=== PATIENT | male | born 1950 | race Caucasian/White ===

== ENCOUNTER 2022-09-25 11:13 | Outpatient (CLI) | payer MEDICARE, BC, SELFPAY | END 2022-09-25 11:14 | disposition home or self-care (01) | PROVIDERS: PCP Internal Medicine; Visit Provider Internal Medicine | DX: Z00.00 Encounter for general adult medical examination without abnormal findings (principal); I10 Essential (primary) hypertension; Z13.6 Encounter for screening for cardiovascular disorders; Z30.09 Encounter for other general counseling and advice on contraception; Z12.5 Encounter for screening for malignant neoplasm of prostate | CPT/HCPCS: 80053; 80061; 84153 ==

== ENCOUNTER 2024-02-13 06:25 | Outpatient (CLI) | payer MEDICARE, BC, SELFPAY | END 2024-02-13 06:26 | disposition home or self-care (01) | LOC: AMB 02-15 09:52 | PROVIDERS: PCP Internal Medicine; Visit Provider Internal Medicine | DX: S89.92XA Unspecified injury of left lower leg, initial encounter (principal); W01.0XXA Fall on same level from slipping, tripping and stumbling without subsequent striking against object, initial encounter; Y92.009 Unspecified place in unspecified non-institutional (private) residence as the place of occurrence of the external cause | CPT/HCPCS: A0425; A0429 ==

== ENCOUNTER 2024-02-13 06:55 | Emergency (ER) | payer MEDICARE, BC, SELFPAY ==
[2024-02-13 07:00] VITALS: BP 165/88; PULSE 71; RESP 20; TEMP 36.7; O2SAT 97; BMI 25.4
--- NOTE | 2024-02-13 07:15 | ED.GENADULT ---
HPI - General Adult General Chief complaint: Laceration/Wound Stated complaint: Fall Time Seen by Provider: 02/13/24 07:14 History of Present Illness HPI narrative: Patient is a 73-year-old gentleman well known to me who stumbled getting out of bed this morning striking his left miranda on his walker. Patient has significant parkinsonism. He had significant bleeding from a skin tear over the anterior miranda on the distal lower extremity which has now stopped. His mother so did abrasions on the left arm anteriorly as well as left anterior miranda. No bony pain patient has no tenderness with range of motion and feels like he can move all of his joints. Patient's case is very complicated by irrigation to parkinsonism atrial fibrillation which is been stable. Related Data Home Medications ?Medication ?Instructions ?Recorded ?Confirmed carbidopa 25 mg-levodopa 100 mg 1 tab PO QID 03/15/22 12/17/23 tablet cholecalciferol (vitamin D3) 50 50 mcg PO DAILY 03/15/22 12/17/23 mcg (2,000 unit) tablet digoxin 125 mcg (0.125 mg) tablet 0.125 mg PO DAILY 03/15/22 12/17/23 entacapone 200 mg tablet 200 mg PO TID 03/15/22 12/17/23 finasteride 5 mg tablet 5 mg PO DAILY 03/15/22 12/17/23 melatonin 5 mg capsule 5 mg PO .Bedtime as needed PRN 03/15/22 12/17/23 polyethylene glycol 3350 17 g PO DAILY 03/15/22 12/17/23 gram/dose oral powder aspirin 81 mg tablet,delayed 81 mg PO QDAY 03/18/22 12/17/23 release diclofenac sodium 1 % topical gel 2-4 topical QID 03/18/22 12/17/23 folic acid-vit B6-vit B12 2.5 1 tab PO QDAY 03/18/22 12/17/23 mg-25 mg-2 mg tablet (Folbic) furosemide 20 mg tablet 20 mg PO QDAY 03/18/22 12/17/23 omeprazole 20 mg capsule,delayed 40 mg PO BID 03/18/22 12/17/23 release acetaminophen 500 mg tablet 1,000 mg PO Q6H PRN 10/29/23 12/17/23 (Tylenol Extra Strength) valsartan 160 mg tablet 80 mg PO DAILY 12/10/23 12/17/23 Previous Rx's ?Medication ?Instructions ?Recorded amoxicillin 500 mg capsule 2,000 mg (4 x 500 mg) PO ONCE 04/16/23 Dental Procedure #7 caps gabapentin 300 mg capsule 600 mg (2 x 300 mg) PO TID #540 10/25/23 caps Adult Wheelchair #1 ea 10/29/23 Adult Wheelchair #1 ea 10/29/23 nystatin 100,000 unit/gram topical 1 applic topical BID #30 grams 10/31/23 cream famotidine 40 mg tablet 20 mg (1/2 x 40 mg) PO DAILY #60 12/17/23 tabs nirmatrelvir 300 mg (150 mg See Rx Instructions PO .COMPLEX 01/16/24 x2)-ritonavir 100 mg tablet,dose #30 ea pack (Paxlovid) meloxicam 7.5 mg tablet 7.5 - 15 mg (1 - 2 x 7.5 mg) PO 01/22/24 DAILY for pain #90 tabs trazodone 50 mg tablet 25 mg (1/2 x 50 mg) PO QHS PRN 02/09/24 pain #90 tabs Allergies Allergy/AdvReac Type Severity Reaction Status Date / Time morphine Allergy Verified 02/13/24 07:04 tetanus immune globulin Allergy Verified 02/13/24 07:04 Review of Systems Status of ROS: Reports: 10 or more systems reviewed and unremarkable except as noted in History and below [facility] Medical History Dysarthria and anarthria ?R47.1 - Dysarthria and anarthria (ICD-10) Delirium due to known physiological condition ?F05 - Delirium due to known physiological condition (ICD-10) Urinary tract infection ?N39.0 - Urinary tract infection, site not specified (ICD-10) Polyosteoarthritis ?M15.9 - Polyosteoarthritis, unspecified (ICD-10) Benign prostatic hyperplasia with lower urinary tract symptoms ?N40.1 - Benign prostatic hyperplasia with lower urinary tract symptoms (ICD-10) History of falling ?Z91.81 - History of falling (ICD-10) Recurrent dislocation, right shoulder ?M24.411 - Recurrent dislocation, right shoulder (ICD-10) Acute posthemorrhagic anemia ?D62 - Acute posthemorrhagic anemia (ICD-10) Ataxia ?R27.0 - Ataxia, unspecified (ICD-10) Rash ?R21 - Rash and other nonspecific skin eruption (ICD-10) Insomnia ?G47.00 - Insomnia, unspecified (ICD-10) Esophageal dysphagia ?R13.19 - Other dysphagia (ICD-10) Hypertension ?I10 - Essential (primary) hypertension (ICD-10) Parkinson's disease ?G20 - Parkinson's disease (ICD-10) Inguinal hernia ?K40.90 - Unilateral inguinal hernia, without obstruction or gangrene, not specified as recurrent (ICD-10) Atrial fibrillation ?I48.91 - Unspecified atrial fibrillation (ICD-10) Anterior shoulder dislocation ?S43.016A - Anterior dislocation of unspecified humerus, initial encounter (ICD-10) Pain ?R52 - Pain, unspecified (ICD-10) Surgical History History of shoulder surgery (11/06/23) ?Z98.890 - Other specified postprocedural states (ICD-10) S/P ORIF (open reduction internal fixation) fracture (09/14/23) ?Z98.890 - Other specified postprocedural states (ICD-10) ?Z87.81 - Personal history of (healed) traumatic fracture (ICD-10) History of reverse total replacement of right shoulder joint ?Z98.890 - Other specified postprocedural states (ICD-10) H/O hernia repair ?Z98.890 - Other specified postprocedural states (ICD-10) ?Z87.19 - Personal history of other diseases of the digestive system (ICD-10) Social History Narrative: -Erin What is your current living situation?: I presently have a place to live Problems where you live: no known problems In the past 12 months, utilities in danger of being shut off: no In past 12 months, lack of transportation kept you from medical appts, meetings, work, or getting things needed for daily living: no In the past 12 mos, have been you worried that your food would run out before you had money to buy more?: never true In the past 12 mos, the food you bought just didn't last and you didn't have money to buy more?: never true Smoking Status: Former smoker What tobacco products do you use: cigarettes Smoking quit date/years: >15 years ago and cigars Do you use any of these nicotine containing products: None Second hand tobacco smoke exposure: No How often do you have a drink containing alcohol: never AUDIT-C Alcohol total score: 0 Non-prescribed substance use: denies use How often does anyone, including family, friends and others, physically hurt you: never How often does anyone, including family, friends and others, insult or talk down to you: never How often does anyone, including family, friends and others, threaten you with harm: never How often does anyone, including family, friends and others, scream or curse at you: never Little interest or pleasure in doing things: several days Feeling down, depressed, or hopeless: several days Exam Narrative: Exam Narrative: EXAM GENERAL: Patient appears comfortable and well. EYES: No scleral icterus. ENT: Tympanic membranes and oropharynx normal. THYROID: no thyroid nodules or thyromegaly. LYMPH: No supraclavicular or cervical lymphadenopathy. SKIN: Abrasions and skin tears as noted above. EXT: No dependent lower extremity pedal edema. HEART: Regular rate and rhythm with no murmurs, rubs, or gallops. LUNGS: Clear to auscultation bilaterally with no crackles or wheezes. ABD: Soft, non tender, non distended. PSYCH: Good eye contact, speech is not pressured. Const: Vital Signs, click to edit/add: Vital Signs - 24 hr 02/13/24 07:00 Temperature 98.0 F Pulse Rate [Right Pulse Oximeter] 71 Respiratory Rate 20 Blood Pressure [Ri ght Upper Arm] 165/88 H Pulse Oximetry 97 Oxygen Delivery Me thod Room Air Course Course ED Course: Patient seen and examined. Vital Signs Vital signs: Initial Vital Signs Temperature 98.0 F 02/13/24 07:00 Temperature Source Temporal Artery Scan 02/13/24 07:00 Pulse Rate 71 02/13/24 07:00 Respiratory Rate 20 02/13/24 07:00 Blood Pressure 165/88 H 02/13/24 07:00 Blood Pressure Mean 113 H 02/13/24 07:00 Pulse Oximetry 97 02/13/24 07:00 Oxygen Delivery Method Room Air 02/13/24 07:00 Vital Signs Temperature 98.0 F 02/13/24 07:00 Pulse Rate 71 02/13/24 07:00 Respiratory Rate 20 02/13/24 07:00 Blood Pressure 165/88 H 02/13/24 07:00 Pulse Oximetry 97 02/13/24 07:00 Oxygen Delivery Method Room Air 02/13/24 07:00 Temperature 98.0 F 02/13/24 07:00 Pulse Rate 71 02/13/24 07:00 Respiratory Rate 20 02/13/24 07:00 Blood Pressure 165/88 H 02/13/24 07:00 Pulse Oximetry 97 02/13/24 07:00 Oxygen Delivery Method Room Air 02/13/24 07:00 Medical Decision Making MDM Narrative Medical decision making narrative: Patient is a 73-year-old gentleman who is actually my primary care patient who presents with skin tears after a fall. I did thoroughly evaluate him and I do not believe he has any fractures or sprains. The abrasions and skin tears are not really amenable to closure but we did clean the numb up really well and the provided sterile bandaging. We did explain wound care to his and they will be in follow-up with me on a p.r.n. basis. They do have my cell phone number to call me any time. Discharge Plan Discharge Clinical Impression: Skin tear Patient Disposition: Home, Self-Care Condition: Stable Additional Instructions: Triple antibiotic daily dressing changes Monitor for signs of infection Call Dr. Wolf on his cell phone if problems develop. Continue current medication. Activity Level: No Restrictions Discharge Diet: Regular Prescriptions: No Action acetaminophen [Tylenol Extra Strength] 500 mg tablet 1,000 mg PO Q6H PRN (DME) Adult Wheelchair Misc See Rx Instructions .Route Qty: 1 0RF Rx Instructions: Wheel chair with elevated leg rest right leg. (DME) Adult Wheelchair Misc See Rx Instructions .Route Qty: 1 0RF Rx Instructions: motorized wheelchair melatonin 5 mg capsule 5 mg PO .Bedtime as needed PRN cholecalciferol (vitamin D3) 50 mcg (2,000 unit) tablet 50 mcg PO DAILY finasteride 5 mg tablet 5 mg PO DAILY carbidopa-levodopa 25-100 mg tablet 1 tab PO QID Rx Instructions: 2.5 tablets 4 times daily polyethylene glycol 3350 17 gram/dose powder PO DAILY Rx Instructions: Every 24 hours digoxin 125 mcg (0.125 mg) tablet 0.125 mg PO DAILY entacapone 200 mg tablet 200 mg PO TID Rx Instructions: 1/2 tablet TID omeprazole 20 mg capsule,delayed release(DR/EC) 40 mg PO BID Patient Comments: TAKE 2 CAPSULES BY MOUTH TWO TIMES A DAY BEFORE BREAKFAST AND DINNER. diclofenac sodium 1 % gel 2-4 topical QID Folbic 2.5-25-2 mg tablet 1 tab PO QDAY furosemide 20 mg tablet 20 mg PO QDAY aspirin 81 mg tablet,delayed release (DR/EC) 81 mg PO QDAY valsartan 160 mg tablet 80 mg PO DAILY famotidine 40 mg tablet 20 mg PO DAILY Qty: 60 3RF amoxicillin 500 mg capsule 2,000 mg PO ONCE Qty: 7 0RF Rx Instructions: 1 HR PRIOR TO APPT gabapentin 300 mg capsule 600 mg PO TID Qty: 540 0RF nystatin 100,000 unit/gram cream 1 applic topical BID Qty: 30 2RF Paxlovid 300 mg (150 mg x 2)-100 mg tablets,dose pack See Rx Instructions PO .COMPLEX Qty: 30 0RF Rx Instructions: take TWO 150 mg tablets of nirmatrelvir with ONE 100 mg tablet of ritonavir twice daily for 5 days PO meloxicam 7.5 mg tablet 7.5 - 15 mg PO DAILY Qty: 90 3RF trazodone 50 mg tablet 25 mg PO QHS PRN (Reason: pain) Qty: 90 0RF Follow Up/Referrals: Bill Wolf MD [Primary Care Provider] - Stand Alone Forms: [facility] Info Instructions
== END 2024-02-13 09:06 | disposition home or self-care (01) ==
PROVIDERS: Emergency Provider Emergency Medicine; PCP Internal Medicine
DX: S81.812A Laceration without foreign body, left lower leg, initial encounter (principal); W06.XXXA Fall from bed, initial encounter
CPT/HCPCS: 12004; 99283

== ENCOUNTER 2024-11-17 10:47 | Outpatient (CLI) | payer MEDICARE, BC, SELFPAY ==
--- NOTE | 2024-11-17 10:45 | CRLHL7_ITS ---
For Patients: As a result of the Cures Act, medical imaging exams and procedure reports are released immediately into your electronic medical record. You may view this report before your referring provider. If you have questions, please contact your health care provider. DIGITAL DIAGNOSTIC BILATERAL BREAST MAMMOGRAM WITH COMPUTER-AIDED DETECTION AND TOMOSYNTHESIS, 11/17/2024 CLINICAL HISTORY: RIGHT breast lump. COMPARISON: None. TECHNIQUE: Digital BILATERAL mammogram in 4 projections with computer-aided detection. Tomosynthesis was used in this interpretation. BREAST COMPOSITION: There are scattered areas of fibroglandular density. FINDINGS: 3D CC/MLO BILATERAL mammogram images submitted. Subareolar fibroglandular tissue is noted on the right. No suspicious mass. No architectural distortion. No adenopathy. No suspicious calcifications. Unremarkable LEFT breast. IMPRESSION: Moderate RIGHT-sided gynecomastia. No evidence of malignancy. RECOMMENDATIONS: Clinical follow-up. A lay language report of this examination will be provided to the patient. BI-RADS Category 2: Benign Dictated by Jose Daniel Pace MD @ 11/18/2024 11:58:02 am ANTONIO/gustabo DW/Dictated by: Jose Daniel Pace MD @ 11/18/2024 11:58:00 AM (Electronically Signed)
== END 2024-11-17 10:48 | disposition home or self-care (01) ==
LOC: MAMMO 10:49
PROVIDERS: PCP Internal Medicine; Visit Provider Internal Medicine
DX: N63.10 Unspecified lump in the right breast, unspecified quadrant (principal); N62 Hypertrophy of breast; N64.0 Fissure and fistula of nipple
CPT/HCPCS: 77066; G0279

== ENCOUNTER 2024-12-19 16:57 | Inpatient (IN) | payer MEDICARE, BC, SELFPAY ==
--- OUTSIDE RECORDS SUMMARY | 2024-11-30 08:39 | XMS_ITS | Encounter Summary ---
Author Organization [facility] Address [address] [place] [address] Care Team Providers Care Linux Systems Analyst Name Role Phone Md, Not Listed Primary Care Provider Unavailabl e Encounter Details Date Type Department Care Team (Latest Contact Info) Description 11/30/2024 8:39 AM CDT - 11/30/2024 11:59 PM CDT Hospital Encounter Imaging Center [facility] [address], [address] [place], [place] [id number] Discharge Disposition: Returning Home/Self Care Social History [...] kidney documented in this encounter Care Teams Linux Systems Analyst Relationship Specialty Start Date End Date , Not Listed no address PCP - General Internal Medicine 11/15/20 documented as of this encounter
[2024-12-19] VITALS (12 sets, daily range): BP systolic 82–158; BP diastolic 55–88; PULSE 59–79; RESP 14–25; TEMP 36.8–37.3; O2SAT 91–97; BMI 25.5
--- OUTSIDE RECORDS SUMMARY | 2024-12-19 16:59 | XMS_ITS | Encounter Summary ---
Author Organization [facility] Address [address] [place] [id number] Care Team Providers Care Stripper And Opaquer Apprentice Name Role Phone Debbie Cazares MD Primary Care Provider Dillon Talbert MD Primary Care Provider [phone] No Ref-Primary, Physician Primary Care Provider Encounter Details Date Type Department Care Team (Late st Contact Info) Description 12/26/2016 [facility] [address] [place] [phone] Scooter Garza MD [facility] [address] [place] [id number] Pre-operative laboratory examination (Primary Dx) Social History Tobacco Use Types Packs/Day Years Used Date Smoking Tobacco: Some Days Cigars Smokeless Tobacco: Never Comments:QUIT cigarettes man y years ago Alcohol Use Standard Drinks/Week Comments Yes 0 (1 standard drink = 0.6 oz pur e alcohol) 4 x a week Sex and Gender Information Value Date Recorded Sex Assigned at Not on file 

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
--- OUTSIDE RECORDS SUMMARY | 2024-12-19 16:59 | XMS_ITS | Clinical Summary ---
Author Organization [facility] Address [address] [place] [id number] Care Team Providers Care Steam Conditioner Filling Name Role Phone No Ref-Primary, Physician Primary Care Provider Allergies Active Allergy Reactions Criticality Noted Date Comments Morphine Hcl Other (See Comments) 04/08/2013 Hiccups for 24 hours Tetanus Toxoid Nausea 04/08/2013 Headaches, fever and flu like symptoms Medications VITAMIN D, CHOLECALCIFEROL, PO Take 2,000 Units by mouth daily Active [place]-3 Fatty Acids (OMEGA-3 FISH OIL PO) Take 1 g by mouth daily Active carbidopa-levodopa (SINEMET CR) 50-200 MG per tablet Take 1 tablet by mouth 4 times daily 06:00, 10:00, 14:00, and 18:00 Active PRAMIPEXOLE DIHYDROCHLORIDE PO Take 0.5 mg by mouth 4 times daily (Takes with Carbidopa-Levodo pa CR) 06:00, 10:00, 14:00, and 18:00 Active Finasteride (PROSCAR PO) Take 5 mg by mouth daily Active vitamin E 400 UNIT capsule Take 400 Units by mouth daily Active CYCLOBENZAPRINE HCL PO Take 5 mg by mouth daily as needed Active Acetaminophen (TYLENOL PO) Take 500 mg by mouth 2 times daily as needed Active carbidopa-levodopa (PARCOPA) 25-100 MG per ODT tab Take 1 tablet by mouth daily as needed Active teriparatide, recombinant, (FORTEO) 600 MCG/2.4ML SOLN injection Inject 20 mcg Subcutaneous daily Active MELATONIN PO Take 5 mg by mouth At Bedtime Active carbidopa-levodopa (SINEMET CR) 50-200 MG per CR tablet Take 1 tablet by mouth nightly as needed Active glucosamine-chondro itinoitin 750-600 MG TABS Take 1 tablet by mouth daily Active PRAMIPEXOLE DIHYDROCHLORIDE PO Take 0.5 mg by mouth nightly as needed (takes with As needed dose of Carbidopa-Levodo pa CR) Active diphenhydrAMINE-araceli taminophen (TYLENOL PM) 25-500 MG tablet Take 1 tablet by mouth At Bedtime Active polyethylene glycol (MIRALAX/GLYCOLAX) powder Take 1 capful by mouth daily Active CHLORTHALIDONE PO Take 12.5 mg by mouth daily (0.5 x 25 mg tablet = 12.5 mg dose) Active calcium carbonate (TUMS) 500 MG chewable tablet Take 1 chew tab by mouth daily as needed for heartburn Active order for DMEIndications:Inst ability of prosthetic hip, initial encounter Equipment being ordered: Walker Wheels ([id number]) and Walker ([id number]) Treatment Diagnosis: Impaired gait 1 each 01/23/20 17 Active aspirin EC 325 MG EC tabletIndications:I nstability of prosthetic hip, initial encounter Take 1 tablet (325 mg) by mouth 2 times daily 100 tablet 01/24/20 17 Active GABAPENTIN PO Take 600 mg by mouth 3 times daily Active acetaminophen (TYLENOL) 325 MG tabletIndications:A rthritis, midfoot Take 2-3 tablets (650-975 mg) by mouth every 6 hours 50 tablet 08/01/19 18 Active ibuprofen (ADVIL/MOTRIN) 600 MG tabletIndications:A rthritis, midfoot Take 1 tablet (600 mg) by mouth every 6 hours 50 tablet 08/01/19 18 Active oxyCODONE IR (ROXICODONE) 5 MG tabletIndications:A rthritis, midfoot Take 1-2 tablets (5-10 mg) by mouth every 4 hours as needed for breakthrough pain 20 tablet 08/01/19 18 Active Active Problems Problem Noted Date Diagnosed Date Inadequate pain control 08/01/2017 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 Degenerative arthritis of hip 04/12/2013 Social History Tobacco Use Types Packs/Day Years Used Date Smoking Tobacco: Every Day Cigars Smokeless Tobacco: Never Alcohol Use Standard Drinks/Week Comments Yes 0 (1 standard drink = 0.6 oz pure alcohol) 1 drink a day on average, rarely have more then one Sex and Gender Information Value Date Recorded Sex Assigned at Not on file Legal Sex Male 4:05 AM MERCHANDISING LEAD Gender Identity Not on file Sexual Orientation Not on file Last Filed Vital Signs Vital Sign Reading Time Taken Comments Blood Pressure 105/62 08/01/2017 5:33 PM MERCHANDISING LEAD Pulse 68 08/01/2017 8:26 AM MERCHANDISING LEAD Temperature 36.4 C (97.6 F) 08/01/2017 5:33 PM MERCHANDISING LEAD Respiratory Rate 16 08/01/2017 5:33 PM MERCHANDISING LEAD Oxygen Saturation 94% 08/01/2017 5:33 PM MERCHANDISING LEAD Inhaled Oxygen Concentration - - Weight 82.1 kg (181 lb) 08/01/2017 8:26 AM MERCHANDISING LEAD Height 177.8 cm (5' 10) 08/01/2017 8:26 AM MERCHANDISING LEAD Body Mass Index 25.97 08/01/2017 8:26 AM MERCHANDISING LEAD Plan of Treatment Not on file Medical Devices Implanted Type Area Loan Adviser Device Identifier Shelf Expiration Date Model / Serial / Lot Graft Bone Crush Canc 15ml [id number] Implanted:Qty: 1 on 08/01/2017 by Sabas Mitchell MD at [facility] Bone/Tis carlene/Biol ogic Left: Foot MUSCULOSKELETAL DESIR 05/15/2020 [id number] / [id number] / Imp Femoral Neck Zim Mod Taper Kinectiv P [id number] Implanted:Qty: 1 on 01/21/2017 by Scooter Garza MD at [facility] Total Joint Componen t/Insert Left: Hip [employer] 11/06/202658-9588-951-0 0 / / [id number] Trilogy Acetabular System Shell With Holes Porous 58mm Od Implanted:Qty: 1 on 04/12/2013 by Scooter Garza MD at [facility] Left: Hip 12/06/2022 / / [id number] Imp Scr Zim 6.5x30mm Acet Cup Self Tap [id number] Implanted:Qty: 1 on 04/12/2013 by Scooter Garza MD at [facility] Left: Hip [employer] 06/08/202234-1912-523-3 0 / / [id number] Modular Femoral Stem Press Fit Plasma Sprayed Size 16.25 Implanted:Qty: 1 on 04/12/2013 by Scooter Garza MD at [facility] Left: Hip 12/06/2016 [id number] 0 / / [id number] Imp Trilogy Liner 40mm Implanted:Qty: 1 on 01/21/2017 by Scooter Garza MD at [facility] Left: Hip TAE 08/06/2017 [id number] / / [id number] Imp Femoral Head Implanted:Qty: 1 on 01/21/2017 by Scooter Garza MD at [facility] Left: Hip FATOU 06/08/2026 [id number] / / [id number] Gorilla Screw 20mm Non-Locking 3.5 Implanted:Qty: 1 on 08/01/2017 by Sabas Mitchell MD at [facility] Left: Foot PARAGON 28 [id number] 31 JUL 2017 8004 Gorilla Screw 24mm Non-Locking 3.5 Implanted:Qty: 1 on 08/01/2017 by Sabas Mitchell MD at [facility] Left: Foot PARAGON 28 [id number] 31 JUL 2017 8004 Gorilla Screw 30mm Non-Locking 3.5 Implanted:Qty: 1 on 08/01/2017 by Sabas Mitchell MD at [facility] Left: Foot PARAGON 28 [id number] 31 JUL 2017 8004 Gorilla Screw 26mm Non-Locking 3.5 Implanted:Qty: 2 on 08/01/2017 by Sabas Mitchell MD at [facility] Left: Foot PARAGON 28 [id number] 31 JUL 2017 8004 Gorilla Screw 26mm Compression Non-Locking 4.2 Implanted:Qty: 1 on 08/01/2017 by Sabas Mitchell MD at [facility] Left: Foot PARAGON 28 [id number] / / 31 JUL 2017 8004 GorillaPablody Bear Plate, Medum Implanted:Qty: 1 on 08/01/2017 by Sabas Mitchell MD at [facility] Left: Foot PARAGON 28 [id number] 2017 504 Explanted Type Area Loan Adviser Device Identifier Shelf Expiration Date Model / Serial / Lot Imp Liner Acetabulum Zim Xlpe [id number] Implanted:Qty: 1 on 04/12/2013 by Scooter Garza MD at [facility] Explanted:Qty: 1 on 01/21/2017 by Scooter Garza MD at [facility] Left: Hip [employer] 07/09/2014 [id number] 8- [id number] Imp Femoral Neck Zim Mod Taper Kinectiv P [id number] Implanted:Qty: 1 on 04/12/2013 by Scooter Garza MD at [facility] Explanted:Qty: 1 on 01/21/2017 by Scooter Garza MD at [facility] Left: Hip [employer] 10/06/2022 [id number] 1 3- [id number] Imp Head Femoral Zim +0x32mm Implanted:Qty: 1 on 04/12/2013 by Scooter Garza MD at [facility] Explanted:Qty: 1 on 01/21/2017 by Scooter Garza MD at [facility] Left: Hip [employer] 03/08/2023 [id number] 3 2- [id number] Gorilla Screw 34mm Non-Locking 3.5 Explanted:Qty: 1 on 08/01/2017 by Sabas Mitchell MD at [facility] Left: Foot PARAGON 28 [id number] 31 JUL 2017 [id number] Insurance MEDICARE [place] [employer] Advance Directives For more information, please contact: [phone] * Full Code (Latest Code Status on File) Date Activated Date Inactivated Comments 01/23/2017 6:44 AM * Full Code Date Activated Date Inactivated Comments 01/21/2017 5:29 PM 01/23/2017 6:44 AM * Full Code Date Activated Date Inactivated Comments 04/14/2013 8:31 AM 01/21/2017 5:29 PM * Full Code Date Activated Date Inactivated Comments 04/12/2013 6:58 PM 04/14/2013 8:31 AM Care Teams Steam Conditioner Filling Relationship Specialty Start Date End Date No Ref-Primary, Physician PCP - General 11/14/23
--- OUTSIDE RECORDS SUMMARY | 2024-12-19 16:59 | XMS_ITS | Clinical Summary ---
Author Organization [facility] Address [address] [place] [id number] Care Team Providers Care Supervisor Assembly Department Name Role Phone Bill Wolf MD Primary Care Provider Samuel Florez MD Unavailable [phone] Allergies Active Allergy Reactions Criticality Noted Date Comments Morphine Other - Describe In Comment Field 02/23/2014 Hiccups x 24 hrs Tetanus Immune Globulin 10/16/2006 Medications PROSCAR 5 MG TAB take 1 tablet (5mg) by oral route once daily 0 Active CHOLECALCIFEROL, VITAMIN D3, (VITAMIN D3 ORAL) Take 1,000 mg by mouth once daily. Active ACETAMINOPHEN (TYLENOL ORAL) Take by mouth. Active diphenhydrAMINE-ac etaminophen 25-500 mg (TYLENOL PM) 25-500 mg tablet Take 1 tablet by mouth at bedtime. Active polyethylene glycol (MIRALAX; GLYCOLAX) 17 g powder for solution Take 17 g by mouth once daily. 6 Active gabapentin (NEURONTIN) 300 mg capsule Take 2 capsules by mouth 3 times daily. 0 Active aspirin (ECOTRIN) 81 mg enteric coated tablet Take 1 Tablet (81 mg) by mouth once daily with a meal. 0 2 Active folic acid-vit b6-vit b12, 2.5-25-2mg, (Folbic) 2.5-25-2 mg tab Take 1 Tablet by mouth once daily. 0 2 Active diclofenac topical (Voltaren) 1 % gel Apply topically to affected area(s) every morning. 0 2 Active famotidine (PEPCID) 40 mg tablet Take 1 Tablet (40 mg) by mouth at bedtime. 0 2 Active omeprazole (PRILOSEC) 20 mg Delayed-Release capsule Take 1 Capsule (20 mg) by mouth in the morning and 1 Capsule (20 mg) in the evening. Take before meals. 0 2 Active ibuprofen (AdviL) 200 mg tablet Take 1 Tablet (200 mg) by mouth every 6 hours if needed. 0 3 Active multivitamin (MVI) tablet Take 1 Tablet by mouth once daily. 0 3 Active melatonin 1 mg tablet Take 0.5 Tablets (0.5 mg) by mouth at bedtime. 0 3 Active meloxicam (MOBIC) 7.5 mg tablet Take 1 Tablet (7.5 mg) by mouth once daily. 0 3 Active zolpidem (Ambien) 5 mg tablet Take 0.5-1 Tablets (2.5-5 mg) by mouth at bedtime if needed for Sleep. 0 3 Active ch-aap-JQ-vit G-ugbnnf-oickqin (PreserVision AREDS 2 Plus MV) 200 mcg-15 mcg- 5 mg-1 mg cap Take by mouth once daily. 0 3 Active carbidopa-levodopa (PARCOPA 25-100) 25-100 mg disintegrating tablet Take 1 Tablet by mouth four times daily. 4 Active entacapone (COMTAN) 200 mg tablet Take 0.5 Tablets (100 mg) by mouth four times daily. 4 Active digoxin (LANOXIN) 125 mcg (0.125 mg) tabletIndications: Chronic atrial fibrillation (HC) TAKE 1 TABLET (125 MCG) BY MOUTH ONCE DAILY. NEED APPT 90 Tablet 3 4 Active valsartan 160 mg tabletIndications: Essential hypertension Take 1 Tablet (160 mg) by mouth once daily. Due for cardiology appt . Call to schedule now. 90 Tablet 5 Active Active Problems No known active problems Encounters Date Type Department Care Team Description 12/05/[address] [place] [address] Jose Daniel Irene MD Refill Request (Valsartan) from Last 3 Months Social History Tobacco Use Types Packs/Day Years Used Date Smoking Tobacco: Former Cigars Q uit: 06/09/2021 Smokeless Tobacco: Never Tobacco Cessation:Ready to Q uit: No; Counseling Given: Yes Comments:cigars Alcohol Use Standard Drinks/Week Comments Not Currently 0 (1 standard drink = 0.6 oz pur e alcohol) Financial Resource Strain Answer Date R ecorded Difficulty of Paying Living Expenses Not on file 05/30/2021 Difficulty of Paying Living Expenses Not on file 05/30/2021 Sex and Gender Information Value Date Recorded Sex Assigned at Not on file Legal Sex Male 6:14 AM MACHINE II CUTTER Gender Identity Male 05/19/2024 2:55 PM MACHINE II CUTTER Sexual Orientation Not on file Obstetrics History Last Filed Vital Signs Vital Sign Reading Time Taken Comments Blood Pressure 142/80 05/20/2024 1:59 PM MACHINE II CUTTER Pulse 51 02/05/2024 12:49 PM CDT Temperature 36.8 C (98.3 F) 05/08/2017 2:20 PM MACHINE II CUTTER Respiratory Rate 14 08/07/2020 9:26 AM MACHINE II CUTTER Oxygen Saturation 96% 02/05/2024 12:49 PM CDT Inhaled Oxygen Concentration - - Weight 78.2 kg (172 lb 6.4 oz) 02/05/2024 12:49 PM CDT Height 172.7 cm (5' 8) 03/04/2023 8:09 AM CDT Body Mass Index 26.21 03/04/2023 8:09 AM CDT Plan of Treatment Upcoming Encounters Date Type Department Care Team (Late st Contact Info) Description 05/19/2025 12:00 PM MACHINE II CUTTER Office Visit [facility] [address] [id number] Samuel Florez MD [address] [facility] [place] [address] Health Maintenance Due Date Last Done Comments Tetanus booster 01/01/1964 Depression screening for age 12+ 1964 Hepatitis C screening for age 18-79 1970 Pneumococcal series for age 50+ (1 of 2 - PCV) 01/01/1972 Colonoscopy through age 75 1997 Lipids for age 45-75 1997 Zoster (shingles) series for age 50+ (1 of 2) 2002 RSV vaccine for adults or (1 - Risk 60-74 years 1-dose series) 2012 Medicare Wellness for age 65+ 2017 BMI (ht and wt on same day) for age 18+ 03/04/2024 03/04/2023, 11/05/2019 COVID-19 vaccine series ( season) 2024 03/17/2024, 04/01/2022, 04/16/2021, Additional history exists Influenza Vaccine (#1) 2025 AAA screening age 65-74 Completed 05/27/2024 Hepatitis B series for 19+ Aged Out N o longer eligible based on patient's age to complete this topic Procedures Procedure Name Priority Date/Time Associated Diagnosis Comments CT ABDOMEN PELVIS STONE PROTOCOL WO Routine 05/27/2024 1:19 PM MACHINE II CUTTER History of kidney stones from Last 3 Months or Most Recently Relevant to Health Maintenance Results * CT ABDOMEN PELVIS STONE PROTOCOL WO (05/27/2024 1:19 PM MACHINE II CUTTER) Anatomical Region Laterality Modality Abdomen, Pelvis, AORTA, LIVER, SPLEEN Computed Tomography 05/27/2024 9:05 PM MACHINE II CUTTER Narrative 05/27/2024 9:05 PM MACHINE II CUTTER For Patients: As a result of the Century Cures Act, medical imaging exams and procedure reports are released immediately into your electronic medical record. You may view this report before your referring provider. If you have questions, please contact your health care provider. INDICATION: History of kidney stones, stone burden eval, post treatment. COMPARISON: CT abdomen pelvis 05/04/2007. CT abdomen. TECHNIQUE: CT of the abdomen and pelvis obtained without contrast. FINDINGS: Suboptimal visceral and lymph node evaluation in the absence of intravenous contrast. Within these limits: Lower chest: Scattered bibasilar atelectasis. Partially imaged severe coronary atherosclerotic calcifications. Elevated right hemidiaphragm. Liver, hepatobiliary: Portions of the hepatic dome are excluded from the field of view. No significant intrahepatic or extrahepatic biliary dilatation. Gallbladder: Portions of the fundus are excluded from view. The imaged portions are normal in appearance without significant wall thickening or pericholecystic fluid. Pancreas: Mildly atrophic. Spleen: Nonenlarged, otherwise unremarkable. Kidneys and ureters: Bilateral duplicated collecting systems. Left upper moiety demonstrates a 1.7 x 1.0 cm calculus without significant obstruction (series 2 image 72). Small nonobstructing calculi in the left lower moiety measuring up to 7 mm (series 2 image 92). Right upper moiety demonstrates thin peripheral suture line suggestive of postsurgical/posttreatment change. Residual right upper moiety calculi measure up to 1.8 x 0.9 cm (series 2 image 62). No significant stone burden in the right lower moiety. No significant hydronephrosis in either kidney. Adrenal glands: Nodular thickening on the left is unchanged dating back to 2006. Otherwise unremarkable. Gastrointestinal: Large sliding hiatal hernia. The distal esophagus is not well evaluated. The duodenum, small bowel, and large bowel caliber are within normal limits. Evaluation of the wall and mucosa is suboptimal in the absence of intravenous contrast. Reproductive: Small central prostatic calcifications. Metal artifact along the spermatic cord regions bilaterally. Urinary bladder: Partially distended with mild wall thickening, which may relate to underdistention or chronic cystitis. Retroperitoneum and vascular: Non aneurysmal abdominal aorta with [id number] calcific atherosclerotic burden. Lymph nodes: No enlarged lymph nodes by size criteria within limits of noncontrast exam. Musculoskeletal: No aggressive osseous lesions. Bilateral pars defects of L5 result in grade 2 anterolisthesis L5 on S1. Chronic appearing compression fracture deformities of T11, T12, L1, and L4 with moderate height loss most pronounced at L4. Severe multilevel disc degeneration with near-complete disc height loss at several lumbar levels. Left total hip arthroplasty. Partially included upper extremities demonstrate severe bilateral radiocarpal degenerative changes. Other: Midline ventral and left inguinal hernia repair mesh without evidence of recurrent hernia. IMPRESSION : 1. Bilateral duplicated collecting systems with right upper as well as left upper and lower moiety residual nonobstructive renal calculi measuring up to 1.8 cm as detailed above. No significant hydronephrosis. Surgical changes along the interpolar right kidney. 2. Urinary bladder wall thickening which may suggest cystitis in the appropriate clinical setting. 3. Chronic appearing compression fractures of T11, T12, L1, and L4. 4. Other incidental findings as detailed above. Please note that all CT scans at this facility use dose modulation, iterative reconstruction, and/or weight-based dosing when appropriate to reduce radiation dose to as low as reasonably achievable. Dictated by Twan Moralez MD @ 05/27/2024 9:05:31 PM (Electronically Signed) Procedure Note Twan Moralez MD - 05/27/2024 For Patients: As a result of the Cures Act, medical imagingexams and procedure reports are released immediately into your electronicmedical record. You may view this report before your referring provider.If you have questions, please contact your health care provider. INDICATION: History of kidney stones, stone burden eval, post treatment. COMPARISON: CT abdomen pelvis 05/04/2007. CT abdomen. TECHNIQUE: CT of the abdomen and pelvis obtained without contrast. FINDINGS: Suboptimal visceral and lymph node evaluation in the absence ofintravenous contrast. Within these limits: Lower chest: Scattered bibasilar atelectasis. Partially imaged severecoronary atherosclerotic calcifications. Elevated right hemidiaphragm. Liver, hepatobiliary: Portions of the hepatic dome are excluded from thefield of view. No significant intrahepatic or extrahepatic biliarydilatation. Gallbladder: Portions of the fundus are excluded from view. The imagedportions are normal in appearance without significant wall thickening orpericholecystic fluid. Pancreas: Mildly atrophic. Spleen: Nonenlarged, otherwise unremarkable. Kidneys and ureters: Bilateral duplicated collecting systems. Left uppermoiety demonstrates a 1.7 x 1.0 cm calculus without significantobstruction (series 2 image 72). Small nonobstructing calculi in the leftlower moiety measuring up to 7 mm (series 2 image 92). Right upper moietydemonstrates thin peripheral suture line suggestive ofpostsurgical/posttreatment change. Residual right upper moiety calculimeasure up to 1.8 x 0.9 cm (series 2 image 62). No significant stoneburden in the right lower moiety. No significant hydronephrosis in eitherkidney. Adrenal glands: Nodular thickening on the left is unchanged dating back [id number]. Otherwise unremarkable. Gastrointestinal: Large sliding hiatal hernia. The distal esophagus is notwell evaluated. The duodenum, small bowel, and large bowel caliber arewithin normal limits. Evaluation of the wall and mucosa is suboptimal inthe absence of intravenous contrast. Reproductive: Small central prostatic calcifications. Metal artifact alongthe spermatic cord regions bilaterally. Urinary bladder: Partially distended with mild wall thickening, which mayrelate to underdistention or chronic cystitis. Retroperitoneum and vascular: Non aneurysmal abdominal aorta [id number] calcific atherosclerotic burden. Lymph nodes: No enlarged lymph nodes by size criteria within limits ofnoncontrast exam. Musculoskeletal: No aggressive osseous lesions. Bilateral pars defects ofL5 result in grade 2 anterolisthesis L5 on S1. Chronic appearingcompression fracture deformities of T11, T12, L1, and L4 with moderateheight loss most pronounced at L4. Severe multilevel disc degenerationwith near-complete disc height loss at several lumbar levels. Left totalhip arthroplasty. Partially included upper extremities demonstrate severebilateral radiocarpal degenerative changes. Other: Midline ventral and left inguinal hernia repair mesh withoutevidence of recurrent hernia. IMPRESSION : 1. Bilateral duplicated collecting systems with right upper as well asleft upper and lower moiety residual nonobstructive renal calculimeasuring up to 1.8 cm as detailed above. No significant hydronephrosis.Surgical changes along the interpolar right kidney. 2. Urinary bladder wall thickening which may suggest cystitis in theappropriate clinical setting. 3. Chronic appearing compression fractures of T11, T12, L1, and L4. 4. Other incidental findings as detailed above. Please note that all CT scans at this facility use dose modulation,iterative reconstruction, and/or weight-based dosing when appropriate toreduce radiation dose to as low as reasonably achievable. Dictated by Twan Moralez MD @ 05/27/2024 9:05:31 PM (Electronically Signed) Samuel Florez MD CT Final Result from Last 3 Months or Most Recently Relevant to Health Maintenance Insurance MEDICARE PART A HB ONLY MEDICARE PART B HB ONLY MEDICARE PB ONLY [facility] Care Teams Supervisor Assembly Department Relationship Specialty Start Date End Date Bill Wolf MD [address] [place] [id number] PCP - General Internal Medicine 08/24/18 Samuel Florez MD [address] [place] [id number] Surgery - Urology 05/20/24
--- OUTSIDE RECORDS SUMMARY | 2024-12-19 16:59 | XMS_ITS | Data Portability ---
Author Organization [facility], [facility] Address [address] [place] [address] Care Team Providers Care Assembler Carbon Brushes Name Role Phone CHRISTOPHER PECK Primary Care Provider [phone] Assessment No assessment recorded. Plan of Treatment Reminders Order Date Submit Date Provider Last Modified By Organization Details Last Modified Time Details Appointments None recorded. Lab None recorded. Referral None recorded. Procedures None recorded. Surgeries None recorded. Imaging None recorded. Medication Orders finasteride 5 mg tablet 2024 025 [facility] [id number] [facility] [employer], [address] [place] [address] 3 [place], [address], 5 10:48:13 finasteride 5 mg tablet 2022 023 [id number] [employer], [facility] 3 [place], [address], 14:26:40 finasteride 5 mg tablet 2021 022 [facility] [id number] [facility], [address] [place] [address], [address], 14:01:53 Patient TargetsNo targets recorded. Patient Instructions Encounter Date Encounter Id Patient Instructions Last Modified By Organization Details Last Modified Time 05/17/2020 [id number] Reviewed imaging . One stone remains- report pending. See in 6 months with KUB. Not available 05/17/2020 12:03:47 11/15/2020 [id number] KUB appears unchanged. He is doing well. See in one year with KUB or sooner for problems. Not available 11/15/2020 12:11:09 12/17/2021 [id number] Stones appear stable. Renewed Finasteride 5mg daily. See in one year with KUB or sooner for problems. Not available 12/17/2021 14:05:35 12/18/2022 [id number] I reviewed and discussed today's KUB. This appears relatively stable. Renewed Finasteride 5mg daily. See in one year with KUB or sooner for problems. Not available 12/18/2022 14:27:09 11/30/2024 [id number] I reviewed and discussed today's KUB. He has bilateral stones which would benefit for treatment if not for his overall medical condition. They agreed not to pursue treatment. I renewed finasteride 5 mg daily for 1 year. See in 1 year with KUB. [email or web address] Not available 11/30/2024 10:48:01 Reason for Referral None Reported. Results Created Date Observation Date Name Description Value Unit Range Abnormal Flag Note LastModifiedBy Organization Detail LastModifiedTime 05/17/20 20 05/17/2020 XR, kidne y + urete r + bladd er No observ ation record ed. [email or web address] [place] [address] [address] [place], [address], 05/17/2020 12:46:56 11/16/19 21 11/15/2020 XR, kidne y + urete r + bladd er No observ ation record ed. [email or web address] [address] [place], [address], 11/15/2020 16:55:17 12/18/19 22 12/17/2021 XR, kidne y + urete r + bladd er No observ ation record ed. [place] [id number] [facility] [address] [place], [address], 12/18/2021 09:59:20 12/19/19 23 12/18/2022 XR, kidne y + urete r + bladd er No observ ation record ed. [facility] [address], [place], [address], 12/18/2022 16:11:02 12/01/19 25 11/30/2024 XR, kidne y + urete r + bladd er No observ ation record ed. [facility] [address], [place], [address], 12/01/2024 10:14:09 Result Notes None recorded. 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 Procedures Surgical History Date Name Laterality Status Provider Name and Address Organization Details Recorded Time 1 Colonoscopy completed Gerald Taylor Jr, MD [address] [facility], [place], [address], [place] [facility] 11/15/2020 11:51:44 Imaging Results None recorded. Procedure Notes None recorded. Medical Equipment None Reported. Allergies Allergen ID Allergen Name Allergen Category Reaction Reaction Severity Criticality Documentation Date Start Date Code Code System Note Provider Name and Address Organization Details Recorded Time 794883 morphine medicatio n Not available Not available Not available 11/25/20192012 7052 RxNorm Not Available [facility] 0 00:44:54 638289 UroXatral medicatio n Not available Not available Not available 11/25/20192012 70523 8 RxNorm Not Available [facility] 0 00:44:54 Medications Name Sig Start Date Stop Date Status Note LastModified by Organization Details LastModified Time amoxicillin 500 mg capsule 500 MG ORALLY EVERY DAY FOR DENTAL PROCEDURE 1 HR PRIOR TO APPT active Not Available Not Available No t Available fluconazole 100 mg tablet TAKE 1 TABLET BY MOUTH EVERY DAY active Not Available Not Available No t Available trazodone 50 mg tablet TAKE 2 TABLETS BY MOUTH DAILY AT BEDTIME active Not Available Not Available No t Available Keflex 500 mg capsule Take 1 capsule by oral route. 2019 active Post stent removal Not Available Not Available Not Available famotidine 40 mg tablet TAKE 1/2 TABLET BY MOUTH ONCE DAILY active Not Available Not Available No t Available carbidopa ER 50 mg-levodopa 200 mg tablet,exte nded release TAKE 1.5 TABLETS BY MOUTH 4 TIMES A DAY. 6AM, 10AM, 2PM AND 6PM active Not Available Not Available No t Available sulfamethox azole 800 mg-trimetho prim 160 mg tablet TAKE 1 TABLET BY MOUTH TWICE A DAY active Not Available Not Available No t Available tramadol 50 mg tablet active Not Available Not Available No t Available pantoprazol e 20 mg tablet,stephanie yed release TAKE 1 TABLET BY MOUTH TWICE A DAY active Not Available Not Available No t Available pramipexole 0.5 mg tablet TAKE 1 TABLET BY MOUTH FOUR TIMES A DAY active Not Available Not Available No t Available meloxicam 7.5 mg tablet TAKE 1 OR 2 TABLETS BY MOUTH EVERY DAY FOR PAIN active Not Available Not Available No t Available oxycodone-a cetaminophe n 5 mg-325 mg tablet active Not Available Not Available No t Available entacapone 200 mg tablet TAKE 1/2 TABLET BY MOUTH DAILY active Not Available Not Available No t Available aspirin 325 mg tablet,stephanie yed release TAKE 1 TABLET (325 MG) BY MOUTH ONCE DAILY WITH A MEAL. active Not Available Not Available No t Available nystatin 100,000 unit/gram topical cream APPLY TOPICALLY TWICE A DAY active Not Available Not Available No t Available gabapentin 300 mg capsule TAKE 2 CAPSULES (600 MG) BY MOUTH THREE TIMES A DAY. active Not Available Not Available No t Available omeprazole 20 mg capsule,del ayed release TAKE 2 CAPSULES BY MOUTH TWICE A DAY active Not Available Not Available No t Available digoxin 125 mcg (0.125 mg) tablet TAKE 1 TABLET (125 MCG) BY MOUTH ONCE DAILY. NEED APPT active Not Available Not Available No t Available zolpidem 5 mg tablet TAKE 0.5 TABLETS (2.5 MG TOTAL) BY MOUTH AT BEDTIME. active Not Available Not Available No t Available furosemide 20 mg tablet TAKE 1 TABLET BY MOUTH EVERY MORNING active Not Available Not Available No t Available carbidopa 25 mg-levodopa 100 mg tablet TAKE 2.5 TABLETS BY MOUTH 4 TIMES A DAY. active Not Available Not Available No t Available finasteride 5 mg tablet TAKE 1 TABLET BY MOUTH EVERY DAY active Not Available Not Available No t Available oxycodone 5 mg tablet TAKE 1 TO 2 TABLETS BY MOUTH EVERY 4 HOURS NEEDED active Not Available Not Available No t Available valsartan 160 mg tablet TAKE 1 TAB (160 MG) BY MOUTH ONCE DAILY. DUE FOR CARDIOLOG Y APPT JAN/Feb. CALL TO SCHEDULE NOW active Not Available Not Available No t Available DILT-XR 180 mg capsule, extended release active Not Available Not Available Not Available carbidopa 25 mg-levodopa 100 mg disintegrat ing tablet active Not Available Not Available N ot Available Folbic 2.5 mg-25 mg-2 mg tablet active Not Available Not Available No t Available Fluzone High-Dose Quad 2020-21 (PF) 240 mcg/0.7 mL IM syringe PHARMACY ADMINISTE RED active Not Available Not Available No t Available Paxlovid 300 mg (150 mg x 2)-100 mg tablets in a dose pack TAKE 2 TABLETS (NIRMATRE LVIR) AND TAKE 1 TABLET (RITONAVI R) BY MOUTH TWICE A DAY FOR 5 DAYS active Not Available Not Available No t Available COVID-19 At-Home Test kit USE DIRECTED ON THE PACKAGE active Not Available Not Available No t Available Vitals Date Recorded Body height Body mass index (BMI) Body weight Heart rate Oxygen saturation Oxygen saturation in Arterial blood by Pulse oximetry Provider Name and Address Organization Details Last Updated DateTime 177.8 cm 27.1 kg/m2 94617.9 6 g 77 /min 97 % 97 % Gerald Taylor Jr, MD [address], [place], [address], [facility] 1 11:51:06 Date Recorded Body height Body mass index (BMI) Body weight Provider Name and Address Organization Details Last Updated DateTime 11/30/2024 177.8 cm 24.4 kg/m2 19452.7 g Gerald Taylor Jr, MD [address], [place], [address], [facility] 11/30/2024 10:15:43 Date Recorded Body height Body mass index (BMI) Body weight Respiratory rate Provider Name and Address Organization Details Last Updated DateTime 12/17/2021 177.8 cm 27.1 kg/m2 20075.96 g 18 /min Eduardo Alvarez [facility] 12/17/2021 13:56:07 Date Recorded Body height Body mass index (BMI) Body weight Provider Name and Address Organization Details Last Updated DateTime 12/18/2022 177.8 cm 25.5 kg/m2 39231.44 g Merlyn Velasquez [facility] 12/18/2022 14:19:15 Date Recorded Body height Body mass index (BMI) Body weight Heart rate Oxygen saturation Oxygen saturation in Arterial blood by Pulse oximetry Provider Name and Address Organization Details Last Updated DateTime 0 177.8 cm 27.1 kg/m2 42038.9 6 g 77 /min 98 % 98 % Gerald Taylor Jr, MD [address], [place], [address], [facility] 0 11:54:13 Social History Question Answer Notes LastModified by Organizat ion Details LastModified Time Tobacco Smoking Status Current Some Day Smoker Eduardo ni, [facility] 12/08/2019 16:20:11 Race White Information no t available 12/18/2022 Ethnicity Not /Lati no Information not available 12/18/2022 Preferred Language Telugu Information not available 12/18/2022 What Was The Date Of Your Most Recent Tobacco Screening? 11/30/2024 Information not available 11/30/2024 Sex: Unknown Functional Status Question Answer Note LastModified by Organization D etails LastModified Time Do you or have you ever used any other forms of tobacco or nicotine? No Information not available 11/30/2024 Mental Status None recorded. Family History Nothing Reported. Medical History Condition Response Diabetes N Sexually Transmitted Infection N Other N Bleeding Disorder N High Blood Pressure N Kidney Stones Y Cancer Y Lung Disease N Depression N High Cholesterol N GERD/Acid Reflux N Heart Disease N Immunizations Vaccine Type Date Status Note Provider Nam e and Address Organization Details Recorded Time pneumococcal polysaccharide PPV23 5 completed Not Available [facility] 11/25/2019 00:42:27 Influenza, injectable,quadriva lent, preservative free, pediatric 3 completed Cate Legois null, [facility] 01/01/2024 16:24:21 zoster recombinant 9 completed Cate Legois null, [facility] 01/01/2024 16:24:21 Influenza, high-dose, quadrivalent, PF 1 [facility] 16:24:21 COVID-19, mRNA, LNP-S, PF, 100 mcg/0.5mL dose or 50 mcg/0.25mL dose 1 completed Cate Legois null [facility] 01/01/2024 16:24:21 COVID-19, mRNA, LNP-S, PF, 100 mcg/0.5mL dose or 50 mcg/0.25mL dose 1 completed [facility] 01/01/[facility]24 16:24:21 COVID-19, mRNA, LNP-S, PF, 30 mcg/0.3 mL dose 1 completed Cate Legois null, [facility] 01/01/2024 16:24:21 pneumococcal polysaccharide PPV23 9 [facility] 16:24:21 influenza, unspecified formulation 2 completed Cate Legois null, [facility] 01/01/2024 16:24:21 Pneumococcal conjugate PCV 13 9 completed Cate Legois null, [facility] 01/01/2024 16:24:21 Influenza, high-dose, trivalent, PF 3 completed Cate Legois null, [facility] 01/01/2024 16:24:21 Influenza, high-dose, trivalent, PF 9 completed Cate Legois null, [facility] 01/01/2024 16:24:21 Influenza, high-dose, trivalent, PF 8 completed Cate Legois null, [facility] 01/01/2024 16:24:21 Influenza, split virus, trivalent, preservative 7 completed Cate Legois null, [facility] 01/01/2024 16:24:21 Influenza, split virus, trivalent, preservative 4 completed Cate Legois null, [facility] 01/01/2024 16:24:21 Influenza, split virus, trivalent, PF 0 completed Cate Legois null, [facility] 01/01/2024 16:24:21 Influenza, split virus, trivalent, PF 6 completed Cate Legois null, [facility] 01/01/2024 16:24:21 Influenza, split virus, trivalent, PF 5 completed Cate Legois null, [facility] 01/01/2024 16:24:21 Influenza, split virus, trivalent, PF 1 completed Cate Legois null, [facility] 01/01/2024 16:24:21 Novel [id number], preservative-free 9 completed Cate Legois null, [facility] 01/01/2024 16:24:21 Influenza, split virus, quadrivalent, PF 0 completed Cate Legois null, [facility] 01/01/2024 16:24:21 Influenza, split virus, quadrivalent, PF 9 completed Cate Legois null, [facility] 01/01/2024 16:24:21 zoster recombinant 3 completed Cate Legois null, [facility] 01/01/2024 16:24:40 Influenza, high-dose, quadrivalent, PF 2 completed Cate Legois null, [facility] 01/01/2024 16:24:40 COVID-19, mRNA, LNP-S, bivalent, PF, 50 mcg/0.5 mL or 25mcg/0.25 mL dose 2 completed Cate Legois null, [facility] 01/01/2024 16:24:40 Influenza, adjuvanted, quadrivalent, PF 3 completed Not Available [facility] 11/30/2024 10:11:19 zoster recombinant 3 completed Not Available [facility] 11/30/2024 10:11:19 Influenza, adjuvanted, trivalent, PF 4 completed Not Available [facility] 11/30/2024 10:11:19 COVID-19, mRNA, LNP-S, PF, carlo-sucrose, 30 mcg/0.3 mL 4 completed Not Available [facility] 11/30/2024 10:11:19 Past Encounters Encounter ID Performer Location Encounter Start Date Encounter Closed Date Diagnosis/Indication Diagnosis SNOMED-CT Code Diagnosis ICD10 Code Diagnosis Note [id number] MD Daisy Isbell Jr [facility] [address] [place] [address] 12/08/2019 16:09:06 12/14/2019 10:05:37 Kidney stone 25090707 N20.0 [id number] MD Daisy Isbell Jr [facility] [address] [place] [address] 02/11/2020 14:31:10 02/15/2020 09:35:31 Kidney stone 94284796 N20.0 [id number] Gerald Taylor Jr, MD [facility] [address] [place] [address] 05/17/2020 11:51:22 05/18/2020 13:37:15 Kidney stone 36266780 N20.0 [id number] Gerald Taylor Jr, MD [facility] [address] [place] [address] 11/15/2020 11:47:43 11/17/2020 12:24:10 Kidney stone 79050034 N20.0 [id number] Gerald Taylor Jr, MD [facility] [address] [place] [address] 12/17/2021 13:50:45 12/19/2021 10:09:37 Kidney stone 30538033 N20.0 Benign pro static hyperplasia 168176075 N40.1 [id number] Gerald Taylor Jr, MD [facility] [address] [place] [address] 12/18/2022 14:14:34 12/24/2022 11:27:07 Kidney stone 64534414 N20.0 Benign pro static hyperplasia 116667554 N40.1 [id number] Gerald Taylor Jr, MD [facility] [address] [address],[address] [place] [address] 11/30/2024 10:07:30 12/15/2024 10:13:55 Kidney stone 24782519 N20.0 Benign pro static hyperplasia 665062292 N40.1 Health Concerns Section Related Observation LastModified by Organization Detai ls LastModified Time None Recorded Concern Status LastModified by Organization Details LastModified Time None Recorded Advance Directives Directive None Recorded Payers Insurance Date Sequence Insurance Name Policy Number Policy Vanegas Covered Member ID Vanegas Member ID Guarantor Name 12/08/2019 1 *SELF PAY* Da david Ackerman [employer] 11/30/2024 1 [place] [email or web address] Jose Daniel Ackerman Eggum [id number] Jose Daniel Ackerman Eggum 12/15/2024 2 [place] [id number] Jose Daniel Hopekendra [id number] Jose Daniel Burgos 01/01/2020 2 UNSPECIFIED REMIT PAYOR Jose Daniel Burgos Notes Date Note Type Note Provider Name and Address Organization Details Recorded Time 05/17/2020 text/html Stone recheck. Doing well. KUB shows a persistent stone in the lower pole. Gerald Taylor Jr, MD [address] [place] [address],[address], [address] [place] [address], [facility] 05/17/2020 12:03:57 11/15/2020 text/html Stone recheck. N o stone pain or events. KUB shows stable stones. Gerald Taylor Jr, MD [address] [place] [address],[address], [address] [place] [address], [facility] 11/15/2020 12:11:24 12/17/2021 text/html Stone recheck.Doing well.No stone pain or events.KUB looks stable.BPH stable. Gerald Taylor Jr, MD [address] [place] [address], [address], [facility] 12/17/2021 14:05:48 12/18/2022 text/html BPH and stone recheck.Doing well.No stone pain or events.KUB today shows relatively stable bilateral stones.Taking Finasteride with reasonable results. Gerald Taylor Jr, MD [address] [place] [address],[address], [address], [facility] 12/18/2022 14:27:19 11/30/2024 text/html Annual stone recheck.No stone pain or events.KUB today shows bilateral stones L>R. Gerald Taylor Jr, MD [address] [place] [address],[address], [address], [facility] 11/30/2024 10:48:26
--- OUTSIDE RECORDS SUMMARY | 2024-12-19 16:59 | XMS_ITS | Encounter Summary ---
Author Organization [facility] Address [address] [place] [address] Care Team Providers Care Real Estate Marketing Coordinator Name Role Phone Debbie Cazares MD Primary Care Provider Dillon Talbert MD Primary Care Provider [phone] No Ref-Primary, Physician Primary Care Provider Encounter Details Date Type Department Care Team (Late st Contact Info) Description 01/13/2017 [facility] [address] [place] [phone] Scooter Garza MD [facility] [address] [place] [address] Pre-operative laboratory examination (Primary Dx) Social [...] on file 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
--- OUTSIDE RECORDS SUMMARY | 2024-12-19 16:59 | XMS_ITS | Continuity of Care Document ---
Author Organization [place] [facility] Address [address] [place] [address] Care Team Providers Care Commercial Lines Assistant Name Role Phone LIV WHITE Primary Care Provider Assessment No assessment recorded. Plan of Treatment Reminders Order Date Submit Date Provider Last Modified By Organization Details Last Modified Time Details Appointments None recorded. Lab None recorded. Referral None recorded. Procedures None recorded. Surgeries None recorded. Imaging None recorded. Medication Orders finasteride 5 mg tablet 2024 025 [facility] [id number] [employer], [address] [facility] [address], [place], [address], 10:48:13 Patient TargetsNo targets recorded. Patient Instructions Encounter Date Encounter Id Patient Instructions Last Modified By Organization Details Last Modified Time 11/30/2024 [id number] I reviewed and discussed today's KUB. He has bilateral stones which would benefit for treatment if not for his overall medical condition. They agreed not to pursue treatment. I renewed finasteride 5 mg daily for 1 year. See in 1 year with KUB. Not available 11/30/2024 10:48:01 Reason for Referral None Reported. Results Created Date Observation Date Name Description Value Unit Range Abnormal Flag Note LastModifiedBy Organization Detail LastModifiedTime 12/01/1911/30/2024 XR, kidne y + urete r + bladd er No observ ation record ed. [facility] [address], [place], [address], 12/01/2024 10:14:09 Result Notes None recorded. 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 Procedures Surgical History Date Name Laterality Status Provider Name and Address Organization Details Recorded Time 1 Colonoscopy completed Gerald Taylor Jr, MD [address] [facility],[address], [place], [address], [facility] 11/15/2020 11:51:44 Imaging Results None recorded. Procedure Notes None recorded. Medical Equipment None Reported. Allergies Allergen ID Allergen Name Allergen Category Reaction Reaction Severity Criticality Documentation Date Start Date Code Code System Note Provider Name and Address Organization Details Recorded Time 282699 morphine medicatio n Not available Not available Not available 11/25/20192012 7052 RxNorm Not Available [facility] 0 00:44:54 298928 UroXatral medicatio n Not available Not available Not available 11/25/20192012 40986 8 RxNorm Not Available [facility] 0 00:44:54 Medications Name Sig Start Date [...] ONCE DAILY. DUE FOR CARDIOLOG Y APPT . CALL TO SCHEDULE NOW active Not Available Not Available No t Available DILT-XR 180 mg capsule, extended release active Not Available Not Available Not Available carbidopa 25 mg-levodopa 100 mg disintegrat ing tablet active Not Available Not Available N ot Available Folbic 2.5 mg-25 mg-2 mg tablet active Not Available Not Available No t Available Fluzone High-Dose Quad 2020 (PF) 240 mcg/0.7 mL IM syringe PHARMACY [...] Updated DateTime 11/30/2024 177.8 cm 24.4 kg/m2 70563.7 g Gerald Taylor Jr, MD [address] [facility] [address], [place], [address], [facility] 11/30/2024 10:15:43 Social History Question Answer Notes LastModified by Organizat ion Details LastModified Time Tobacco Smoking Status Current Some Day Smoker Eduardo ni, [facility] 12/08/2019 16:20:11 Race White Information no t available 12/18/2022 Ethnicity Not /Lati no Information not available 12/18/2022 Preferred Language Japanese Information not available 12/18/2022 What Was The [...] History Nothing Reported. Medical History Condition Response Other N High Blood Pressure N Kidney Stones Y Lung Disease N Depression N GERD/Acid Reflux N Diabetes N Sexually Transmitted Infection N Bleeding Disorder N Cancer Y High Cholesterol N Heart Disease N Immunizations Vaccine Type Date Status Note Provider Nam e and Address Organization Details Recorded Time pneumococcal polysaccharide PPV23 5 completed Not Available [facility] 11/25/2019 00:42:27 Influenza, injectable,quadriva lent, preservative free, pediatric 3 completed Cate Legois null, [facility] 01/01/2024 16:24:21 [facility]oster recombinant 9 [facility] 16:24:21 Influenza, high-dose, quadrivalent, PF 1 completed [facility] 16:24:21 COVID-19, mRNA, LNP-S, PF, 100 mcg/0.5mL dose or 50 mcg/0.25mL dose 1 completed Cate Legois null [facility] 01/01/2024 16:24:21 COVID-19, mRNA, LNP-S, PF, 100 mcg/0.5mL dose or 50 mcg/0.25mL dose 1 completed Cate Legois null, [facility] 01/01/2024 16:24:21 COVID-19, mRNA, LNP-S, PF, 30 mcg/0.3 mL dose 1 completed Cate Legois null, [facility] 01/01/2024 16:24:21 pneumococcal polysaccharide PPV23 9 completed Cate Legois null, [facility] 01/01/2024 16:24:21 influenza, unspecified formulation 2 completed Cate Legois null, [facility] 01/01/2024 16:24:21 Pneumococcal conjugate PCV 13 9 completed Cate Legois null, [facility] 01/01/2024 16:24:21 Influenza, high-dose, trivalent, PF 3 completed Cate Legois null, [facility] 01/01/2024 16:24:21 Influenza, high-dose, trivalent, PF 9 completed Cate Legois null, [facility] 01/01/2024 16:24:21 Influenza, high-dose, trivalent, PF 8 completed Cate Legois null, [facility] 01/01/2024 16:24:21 Influenza, split virus, trivalent, preservative 7 completed Cate Legois null, [facility] 01/01/2024 16:24:21 Influenza, split virus, trivalent, preservative 4 completed Cate Legois null, [facility] 01/01/2024 16:24:21 Influenza, split virus, trivalent, PF 0 completed Cate Legois null, [facility] 01/01/2024 16:24:21 Influenza, split virus, trivalent, PF 6 completed Cate Legois null, [facility] 01/01/2024 16:24:21 Influenza, split virus, trivalent, PF 5 completed Cate Legois null, [facility] 01/01/2024 16:24:21 Influenza, split virus, trivalent, PF 1 completed Cate Legois null, [facility] 01/01/2024 16:24:21 Novel [id number], preservative-free 9 completed Cate Legois null, [facility] 01/01/2024 16:24:21 Influenza, split virus, quadrivalent, PF 0 completed Cate Legois null, [facility] 01/01/2024 16:24:21 Influenza, split virus, quadrivalent, PF 9 completed Cate Legois null, [facility] 01/01/2024 16:24:21 zoster recombinant 3 completed Cate Legois null, [facility] 01/01/2024 16:24:40 Influenza, high-dose, quadrivalent, PF 2 completed Cate Legois null, [facility] 01/01/2024 16:24:40 COVID-19, mRNA, LNP-S, bivalent, PF, 50 mcg/0.5 mL or 25mcg/0.25 mL dose 2 completed Cate Legois null, [facility] 01/01/2024 16:24:40 Influenza, adjuvanted, quadrivalent, PF 3 completed Not Available [facility] 11/30/2024 10:11:19 zoster recombinant 3 completed Not Available [facility] 11/30/2024 10:11:19 Influenza, adjuvanted, trivalent, PF 4 completed Not Available [facility] 11/30/2024 10:11:19 COVID-19, mRNA, LNP-S, PF, carlo-sucrose, 30 mcg/0.3 mL 4 completed Not Available [facility] 11/30/2024 10:11:19 Past Encounters Encounter ID Performer Location Encounter Start Date Encounter Closed Date Diagnosis/Indication Diagnosis SNOMED-CT Code Diagnosis ICD10 Code Diagnosis Note [id number] Gerald Taylor Jr, MD [facility] [address] [address],[address] [place] [address] 11/30/2024 10:07:30 12/15/2024 10:13:55 Kidney stone 51553895 N20.0 Benign pro static hyperplasia 350320258 N40.1 Health Concerns Section Related Observation LastModified by Organization Rajesh mari LastModified Time None Recorded Concern Status LastModified by Organization Details LastModified Time None Recorded Payers Encounter Date Sequence Insurance Name Policy Number Policy Vanegas Covered Member ID Vanegas Member ID Guarantor Name 11/30/2024 1 [place]: [employer] Jose Daniel Burgos [id number] Jose Daniel Burgos 11/30/2024 2 [place] [facility] (MEDICARE SUPPLEMENT) [id number] Jose Daniel Burgos [id number] Jose Daniel Burgos Notes Date Note Type Note Provider Name and Address Organization Details Recorded Time 11/30/2024 text/html Annual stone recheck.No stone pain or events.KUB today shows bilateral stones L>R. Gerald Taylor Jr, MD [address] [place] [address],[address], [place], [address], [facility] 11/30/2024 10:48:26
--- OUTSIDE RECORDS SUMMARY | 2024-12-19 16:59 | XMS_ITS | Referral Summary ---
Author Organization [facility] Address [address] [place] [address] Care Team Providers Care Vamp Strap Ironer Name Role Phone Md, Not Listed Primary Care Provider Unavailabl e Encounters Date Type Department Care Team Description 11/30/2024 8:39 AM CDT - 11/30/2024 11:59 PM CDT Hospital Encounter [facility] [address], [address] [place], [place] [address] Discharge Disposition: Returning Home/Self Care from Last 3 Months Allergies Active Allergy Reactions Criticality Noted Date [...] whether generalized or localized, lower leg 05/22/200906/09 Immunizations Immunization Administration Dates Next Due Hep A Adult 06/16/1998 Influenza (2013-14) 03/31/2013 Influenza recombinant (FluBlok Quadrivalent PF) 04/23/2011,03/09/2010 Influenza split virus quadrivalent 03/06/2017 Zoster Live 11/21/2013 Social History Tobacco Use Types Packs/Day Years Used Date Smoking Tobacco: Some Days Cigars Smokeless Tobacco: Never Tobacco Cessation:Ready to Q uit: No; Counseling Given: No Comments:2 cigars/week; quit smoking cigarettes 1990 Alcohol Use Standard Drinks/Week Comments Yes 5.8 [...] 01/25/2020 11:58 AM CDT Plan of Treatment Not on file Medical Devices Implanted Type Area Anvilsmith Device Identifier Shelf Expiration Date Model / Serial / Lot Cement Bone Simplex W/Tobra - [id number] Implanted:Qt y: 2 on 02/07/2011 at [facility] Cement Right: Shoulder Vesuvius Donny 02/08/2012 6197-9-0 01 / / [id number] Log [id number] - Cart: Depuy Global Fracture Shoulder - 1 - Hd Depuy Hum Implanted:Qt y: 1 on 02/07/2011 at [facility] Head Right: Shoulder DePuy Synthes Co 06/09/2020 1128-52- 010 / / [id number] Log [id number] - Set: Synthes Lcp Sm Frag Ins/Imp* - 1 - Pltsynprxhum 3.5/6h/3h 241.901 Implanted:Qt y: 1 on 01/24/2011 at [facility] Plate Right: Shoulder Synthes 241.901 / / Log [id number] - Cart: Depuy Global Fracture Shoulder - 1 - Cement Depuy Sz 3 Implanted:Qt y: 1 on 02/07/2011 at [facility] Restrictor Right: Shoulder DePuy [employer] 04/09/2014 / / [id number] Log [id number] - Set: Synthes Lcp Sm Frag Ins/Imp* - 1 - Scr Syn Crtx S/T3.5/34 204.834 Implanted:Qt y: 1 on 01/24/2011 at [facility] Screw/[place] Right: Shoulder Synthes 204.834 / / Log [id number] - Set: Synthes Lcp Sm Frag Ins/Imp* - 1 - Scrsynlckstd rv3.5/32 212.112 Implanted:Qt y: 1 on 01/24/2011 at [facility] Screw/[place] Right: Shoulder Synthes 212.112 / / Log [id number] - Set: Synthes Lcp Sm Frag Ins/Imp* - 1 - Scrsynlckstd rv3.5/50 212.121 Implanted:Qt y: 3 on 01/24/2011 at [facility] Screw/[place] Right: Shoulder Synthes 212.121 / / Log [id number] - Set: Synthes Lcp Sm Frag Ins/Imp* - 1 - Scrsynlckstd rv3.5/55 212.123 Implanted:Qt y: 4 on 01/24/2011 at [facility] Screw/[place] Right: Shoulder Synthes 212.123 / / Log [id number] - Cart: Depuy Global Fracture Shoulder - 1 - Stem Depuy Sz 12 Implanted:Qt y: 1 on 02/07/2011 at [facility] Stem Right: Shoulder DePuy [employer] 05/09/2017 1128-12- 000 / / [id number] Stent Ureteral Inlay 4.3vl79rn - [id number] Implanted:Qt y: 1 on 04/04/2017 by Gerald Taylor MD at [facility] Stent Left: Ureter [employer] 03/29/2021 [id number] / / [id number] Stent Ureteral Inlay [id number] - [id number] Implanted:Qt y: 1 on 01/28/2020 by Gerald Taylor MD at [facility] Stent Left: Ureter [employer] 02/13/2023 [id number] / / [id number] Procedures Procedure Name Priority Date/Time Associated Diagnosis [...] stones. REPORT SIGNED BY DR. VANDANA OROZCO Gerald Taylor MD XRAY ORDERABLE Final Result * LIPID PROFILE CASCADE (09/04/2015 2:44 PM CDT) Specimen Type 09/04/2015 7:27 PM CDT [facility] Cholesterol 143 <200 mg/dL 09/04/2015 7:27 PM CDT [facility] Triglycerides 43 <150 mg/dL 09/04/2015 7:27 PM T [facility] LDL Chol, Calc 92 <100 mg/dL 09/04/2015 7:27 PM [facility] HDL Cholesterol 42 >40 mg/dL 09/04/2015 7:27 PM [facility] Chol/HDL Ratio 3.4 0.0 - 4.9 09/04/2015 7:27 PM [facility] Blood 09/04/2015 2:44 PM CDT 09/04/2015 7:00 PM CDT Narrative [facility] - 09/04/2015 7:27 PM CDT LDL CHOLESTEROL REFERENCE RANGES: (FOR PATIENTS W/O HEART DISEASE) <100 mg/dL = Optimal 100-129 mg/dL = Near/Above Optimal 130-159 mg/dL = Borderline High 160-189 mg/dL = High >/= 190 mg/dL = Very High Sathish Arana MD CHEMISTRY ORDERABLE Final Result [facility] [address] [place] [address] * XR BONE DENSITY-SPINE & HIP (08/25/2015 [...] was performed for your patient at the [facility] in [place] using a [employer] (Image Engine Design) unit. FINDINGS: Lumbar Spine: Average BMD (g/cm2): [...] was performed for your patient at the [facility] in [place] using a Hologic (Discovery) unit. FINDINGS: Lumbar [...] Maintenance Insurance MEDICARE PART A & B [facility] MEDICARE SUPPLEMENT [employer] OPEN ACCESS/CHOICE Advance Directives For more information, please contact: [phone] Documents on File Type Date Recorded Patient Packing Room Worker Expl anation HCD - Complete 01/28/2020 11:02 AM 10-26-18 * Full Code (Latest Code Status on File) Date Activated Date Inactivated Comments 01/28/2020 11:57 AM 01/28/2020 7:27 PM Question Answer Comments How was code status determined? Patient * Full Code Date Activated Date Inactivated Comments 11/06/2013 11:05 PM 11/07/2013 8:29 PM Question Answer Comments How was code status determined? Patient Care Teams Vamp Strap Ironer Relationship Specialty Start Date End Date Md, Not Listed no address PCP - General Internal Medicine 11/15/20
--- OUTSIDE RECORDS SUMMARY | 2024-12-19 16:59 | XMS_ITS | Clinical Summary ---
Author Organization [facility] Address [address] [place] [address] Care Team Providers Care Websphere Developer Name Role Phone Bill Wolf MD Primary Care Provider [phone] Source Comments You are receiving this document as you are listed as the primary care provider,follow-up provider, or the patient has been referred to you for consultation.This is in compliance with the Medicare andMedicaid EHR Incentive Program,which states Providers who transition their patient to another setting of careor provider of care or refers their patient to another provider of care shouldprovide summary care record for each transition of care or referral. [employer] Allergies Active Allergy Reactions Criticality Noted Date Comments Morphine Other, see comments 11/23/2012 Hiccups, PN: hiccups Tetanus Toxoid Other, see comments 11/07/2011 Fever, body aches Tetanus Toxoids 11/23/2012 Medications Diphenhydramin e-APAP, sleep, (TYLENOL PM EXTRA STRENGTH) 25-500 MG 1 Tablet daily at bedtime. Active finasteride (AKA PROSCAR) 5 MG tablet Take 1 Tablet (5 mg) by mouth daily. Active cholecalcifero l (AKA VITAMIN D3) 1000 UNITS tablet Take 1 Tablet (1,000 Units) by mouth daily. 3 Active polyethylene glycol (AKA MIRALAX) packet Take 10 g by mouth daily. 6 Active Melatonin ([employer]S MELATONIN) 5 MG Take 1 Tablet (5 mg) by mouth daily at bedtime. 7.5mg at bedtime 6 Active meloxicam (MOBIC) 7.5 MG tablet TAKE 1-2 TABLETS BY MOUTH DAILY. STAY HYDRATED AND TAKE WITH FOOD 60 Tab 8 8 Active Additional Information Patient taking differently: 7.5 mg Oral DAILY, Reported on 07/26/2024 hydroCHLOROthi azide (ORETIC) 25 MG tablet Take 12.5 mg by mouth daily. 0 9 Active digoxin (LANOXIN) 125 MCG tablet Take 1 Tablet (0.125 mg) by mouth daily. Active furosemide (LASIX) 20 MG tablet Take 1 Tablet (20 mg) by mouth every morning. 0 Active famotidine (PEPCID) 40 MG tablet Take 0.5 Tablets (20 mg) by mouth daily at bedtime. 4 Active ibuprofen (MOTRIN) 200 MG tablet Take 1 Tablet (200 mg) by mouth every 6 hours as needed. 3 Active valsartan (DIOVAN) 160 MG tablet Take 0.5 Tablets (80 mg) by mouth daily. Active nystatin (MYCOSTATIN) 528715 UNIT/GM cream 1 Application two times daily as needed. 4 Active aspirin 81 MG chewable tablet Chew and swallow 1 Tablet (81 mg) by mouth daily. 4 Active omeprazole (PRILOSEC) 40 MG capsule Take 1 Capsule (40 mg) by mouth two times a day. Take 1 hour before a meal. Active acetaminophen 500 MG tablet Take 1 Tablet (500 mg) by mouth two times a day. Maximum acetaminophen dose is 4000 mg in 24 hours Active gabapentin (NEURONTIN) 300 MG capsule Take 2 Capsules (600 mg) by mouth three times a day. 540 Capsule 3 4 Active Multiple Vitamins-[place] als (PRESERVISION AREDS 2 OR) Take 1 Tablet by mouth two times a day. Active FOLBIC 2.5-25-2 MG tablet Take 1 Tablet by mouth daily. 90 Tablet 3 5 Active entacapone (COMTAN) 200 MG tablet Take 1 Tablet (200 mg) by mouth 4 times a day. 360 Tablet 3 5 Active carbidopa-levo dopa (SINEMET) 25-100 MG tablet Take 2.5 Tablets by mouth 4 times a day. 900 Tablet 3 5 Active traZODone (DESYREL) 50 MG tablet Take 2 Tablets (100 mg) by mouth daily at bedtime. 180 Tablet 3 5 Active Active Problems Problem Noted Date Diagnosed Date Parkinson's disease 03/04/2011 Immunizations Immunization Administration Dates Next Due Influenza Vaccine (3+years) ([facility]) 007 Family History Medical History Relation Name Comments Parkinsons Brother not clinically diagnosed Parkinsons Cousin Parkinsons Sister Relation Name Status Comments Brother not clinically diagnosed Alive Cousin Other uncle Alive Sister Social History Tobacco Use Types Packs/Day Years Used Date Smoking Tobacco: Some Days Cigars Smokeless Tobacco: Never Comments:Former Cigarette sm oker - quit 1989 - smoke cigars 2-3 weekly Alcohol Use Standard Drinks/Week Comments Yes 0 (1 standard drink = 0.6 oz pur e alcohol) AUDIT-C Answer Date Recorded Frequency of Alcohol Consumption 4 or more times a week 01/05/2019 Average Number of Drinks 1 or 2 019 Frequency of Binge Drinking Not on file 12/09 Sex and Gender Information Value Date Recorded Sex Assigned at Not on file Legal Sex Male 7:16 AM CDT Gender Identity Not on file Sexual Orientation Not on file Last Filed Vital Signs Vital Sign Reading Time Taken Comments Blood Pressure 142/79 07/26/2024 10:45 AM 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 Pulse 70 07/26/2024 10:45 AM 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 Temperature - - Respiratory Rate 16 01/05/2019 1:56 PM CDT Oxygen Saturation 95% 01/05/2019 1:56 PM CDT Inhaled Oxygen Concentration - - Weight 79.8 kg (176 lb) 07/26/2024 10:43 AM 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 shoes on Height 179.1 cm (5' 10.5) 07/10/2017 1:21 PM CS T Body Mass Index 24.9 07/10/2017 1:21 PM 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 Plan of Treatment Health Maintenance Due Date Last Done Comments Hep C Screening (Preventive Services) 1950 Medicare Annual Wellness Visit 1950 DTaP/Tdap/Td Vaccine (1 - Tdap) 01/01/1972 Cholesterol 01/01/1988 Colonoscopy 06/09/2020 06/09/2010 COVID-19 Vaccine ( season) 2024 03/17/2024, 04/01/2022, 04/16/2021, Additional history exists Influenza Vaccine (#1) 2025 , 04/14/2023, 03/11/2022, Additional history exists RSV Vaccine (1 - 1-dose 75+ series) 01/01/2028 HepA Vaccine Aged Out 06/16/1998 No longer eligi ble based on patient's age to complete this topic Pneumococcal Vaccine 50+ Yrs Completed 03/19/2019, 01/13/2019 Zoster/Shingles Vaccine Completed 04/14/20, 09/25/2022, 03/19/2019, Additional history exists HepB Vaccine Aged Out No longer eligi ble based on patient's age to complete this topic Hib Vaccine Aged Out No longer eligi ble based on patient's age to complete this topic MCV4 Vaccine Aged Out No longer eligi ble based on patient's age to complete this topic Meningococcal B Vaccine Aged Out No l onger eligible based on patient's age to complete this topic Insurance MEDICARE BCBS MEDICARE SUPPLEMENT [facility] MEDICARE SUPPLEMENT MEDICARE Advance Directives Documents on File Type Date Recorded Patient Room Inspector Expl anation HEALTHCARE DIRECTIVE 10/26/2018 [facility] ARE DIRECTIVE 10/26/2018 Care Teams Websphere Developer Relationship Specialty Start Date End Date Bill Wolf MD [address] [place] [address] PCP - General 07/28/19
--- NOTE | 2024-12-19 17:10 | ED.FALL ---
HPI - Fall General Time Seen by Provider: 17:10 Date Seen: 12/19/24 Chief Complaint: Fall/Minor Trauma Stated Complaint: fall Time Seen by Provider: 12/19/24 17:09 Source: patient, EMS and RN notes reviewed Mode of arrival: EMS Limitations: no limitations History of Present Illness HPI Narrative: This 73-year-old male is brought in by EMS from his home where he resides with his after a fall with complaint of right hip pain. He was up, lost his balance. His was at the store and not home, neighbors went to assist him up. She is not aware of position that he was found in. He did attempt to walk, had pain with attempting to walk on the right leg an asked to sit down. Uses a walker baseline for pain. He has Parkinson's, had a recent UTI and just finished Cipro. He states the dysuria has improved but his wonders if UTI is completely resolved. No fevers. He denies any abdominal pain. Denies any difficulty breathing. No head pain, does not think he hit his head or loss consciousness. No neck pain. No chest wall pain, no pain in his upper extremities. The pain in his leg is in the groin on the right side. He has had multiple surgeries on his right shoulder, does not have the shoulder joint anymore, is left with a PEG type prosthesis in the proximal humerus. Patient declined any pain management by EMS and still is denying any pain management with me. complaint: fall Related Data Home Medications ?Medication ?Instructions ?Recorded ?Confirmed carbidopa 25 mg-levodopa 100 mg 1 tab PO QID 03/15/22 10/27/24 tablet cholecalciferol (vitamin D3) 50 50 mcg PO DAILY 03/15/22 10/27/24 mcg (2,000 unit) tablet digoxin 125 mcg (0.125 mg) tablet 0.125 mg PO DAILY 03/15/22 10/27/24 entacapone 200 mg tablet 200 mg PO TID 03/15/22 10/27/24 melatonin 5 mg capsule 5 mg PO .Bedtime as needed PRN 03/15/22 10/27/24 polyethylene glycol 3350 17 g PO DAILY 03/15/22 10/27/24 gram/dose oral powder aspirin 81 mg tablet,delayed 81 mg PO QDAY 03/18/22 10/27/24 release folic acid-vit B6-vit B12 2.5 1 tab PO QDAY 03/18/22 10/27/24 mg-25 mg-2 mg tablet (Folbic) furosemide 20 mg tablet 20 mg PO QDAY 03/18/22 10/27/24 acetaminophen 500 mg tablet 1,000 mg PO Q6H PRN 10/29/23 10/27/24 (Tylenol Extra Strength) valsartan 160 mg tablet 80 mg PO DAILY 12/10/23 10/27/24 Previous Rx's ?Medication ?Instructions ?Recorded amoxicillin 500 mg capsule 2,000 mg (4 x 500 mg) PO ONCE 04/16/23 Dental Procedure #7 caps gabapentin 300 mg capsule 600 mg (2 x 300 mg) PO TID #540 10/25/23 caps Adult Wheelchair #1 ea 10/29/23 Adult Wheelchair #1 ea 10/29/23 nystatin 100,000 unit/gram topical 1 applic topical BID #30 grams 10/31/23 cream famotidine 40 mg tablet 20 mg (1/2 x 40 mg) PO DAILY #60 12/17/23 tabs meloxicam 7.5 mg tablet 7.5 - 15 mg (1 - 2 x 7.5 mg) PO 01/22/24 DAILY for pain #90 tabs trazodone 50 mg tablet 50 mg PO QHS PRN pain #90 tabs 07/27/24 finasteride 5 mg tablet 5 mg PO DAILY #90 tabs 09/20/24 omeprazole 20 mg capsule,delayed 40 mg (2 x 20 mg) PO BID #180 caps 09/20/24 release pantoprazole 20 mg tablet,delayed 20 mg PO BID #90 tabs 10/27/24 release sulfamethoxazole 800 1 tab PO BID #10 tabs 12/14/24 mg-trimethoprim 160 mg tablet (Bactrim DS) Allergies Allergy/AdvReac Type Severity Reaction Status Date / Time morphine Allergy Verified 12/19/24 17:05 tetanus immune globulin Allergy Verified 12/19/24 17:05 Review of Systems Status of ROS: Reports: 6 or more systems reviewed and unremarkable except as noted in History and below [facility] Medical History Breast mass, right ?N63.10 - Unspecified lump in the right breast, unspecified quadrant (ICD-10) BPH (benign prostatic hyperplasia) ?N40.0 - Benign prostatic hyperplasia without lower urinary tract symptoms (ICD-10) Dysarthria and anarthria ?R47.1 - Dysarthria and anarthria (ICD-10) Delirium due to known physiological condition ?F05 - Delirium due to known physiological condition (ICD-10) Urinary tract infection ?N39.0 - Urinary tract infection, site not specified (ICD-10) Polyosteoarthritis ?M15.9 - Polyosteoarthritis, unspecified (ICD-10) Benign prostatic hyperplasia with lower urinary tract symptoms ?N40.1 - Benign prostatic hyperplasia with lower urinary tract symptoms (ICD-10) History of falling ?Z91.81 - History of falling (ICD-10) Recurrent dislocation, right shoulder ?M24.411 - Recurrent dislocation, right shoulder (ICD-10) Acute posthemorrhagic anemia ?D62 - Acute posthemorrhagic anemia (ICD-10) Ataxia ?R27.0 - Ataxia, unspecified (ICD-10) Rash ?R21 - Rash and other nonspecific skin eruption (ICD-10) Insomnia ?G47.00 - Insomnia, unspecified (ICD-10) Esophageal dysphagia ?R13.19 - Other dysphagia (ICD-10) Hypertension ?I10 - Essential (primary) hypertension (ICD-10) Parkinson's disease ?G20 - Parkinson's disease (ICD-10) Inguinal hernia ?K40.90 - Unilateral inguinal hernia, without obstruction or gangrene, not specified as recurrent (ICD-10) Atrial fibrillation ?I48.91 - Unspecified atrial fibrillation (ICD-10) Anterior shoulder dislocation ?S43.016A - Anterior dislocation of unspecified humerus, initial encounter (ICD-10) Pain ?R52 - Pain, unspecified (ICD-10) Surgical History History of shoulder surgery (11/06/23) ?Z98.890 - Other specified postprocedural states (ICD-10) S/P ORIF (open reduction internal fixation) fracture (09/14/23) ?Z98.890 - Other specified postprocedural states (ICD-10) ?Z87.81 - Personal history of (healed) traumatic fracture (ICD-10) History of reverse total replacement of right shoulder joint ?Z98.890 - Other specified postprocedural states (ICD-10) H/O hernia repair ?Z98.890 - Other specified postprocedural states (ICD-10) ?Z87.19 - Personal history of other diseases of the digestive system (ICD-10) Social History Narrative: -Erin What is your current living situation?: I presently have a place to live Problems where you live: no known problems In the past 12 months, utilities in danger of being shut off: no In past 12 months, lack of transportation kept you from medical appts, meetings, work, or getting things needed for daily living: no In the past 12 mos, have been you worried that your food would run out before you had money to buy more?: never true In the past 12 mos, the food you bought just didn't last and you didn't have money to buy more?: never true Smoking Status: Former smoker What tobacco products do you use: cigarettes Smoking quit date/years: >15 years ago and cigars Do you use any of these nicotine containing products: None Second hand tobacco smoke exposure: No How often do you have a drink containing alcohol: never AUDIT-C Alcohol total score: 0 Non-prescribed substance use: denies use How often does anyone, including family, friends and others, physically hurt you: never How often does anyone, including family, friends and others, insult or talk down to you: never How often does anyone, including family, friends and others, threaten you with harm: never How often does anyone, including family, friends and others, scream or curse at you: never Exam Const: Vital Signs, click to edit/add: Vital Signs - 24 hr 12/19/24 17:06 12/19/24 17:06 12/19/24 17:07 Temperature 99.2 F Pulse Rate 59 L Pulse Rate [Pulse Oximeter] 61 Respiratory Rate 16 17 Blood Pressure Blood Pressure [Ri ght Upper Arm] 104/60 104/60 Pulse Oximetry 96 92 Oxygen Delivery Me thod Room Air 12/19/24 17:15 12/19/24 17:20 12/19/24 17:30 Temperature Pulse Rate 73 Pulse Rate [Pulse Oximeter] Respiratory Rate 23 21 23 Blood Pressure 82/55 L Blood Pressure [Ri ght Upper Arm] Pulse Oximetry 93 Oxygen Delivery Me thod 12/19/24 17:45 12/19/24 18:40 12/19/24 18:45 Temperature Pulse Rate Pulse Rate [Pulse Oximeter] Respiratory Rate 14 25 H 17 Blood Pressure Blood Pressure [Ri ght Upper Arm] Pulse Oximetry Oxygen Delivery Me thod 12/19/24 19:00 12/19/24 19:18 Temperature Pulse Rate 66 Pulse Rate [Pulse Oximeter] 66 Respiratory Rate 20 18 Blood Pressure Blood Pressure [Ri ght Upper Arm] 158/88 H Pulse Oximetry 97 95 Oxygen Delivery Me thod Room Air This 73-year-old male is alert, interactive, no apparent distress. Sclera clear, extraocular muscles intact, symmetrical facial function. Speech is slow and soft. No midline tenderness of his neck, no pain with range of motion of his neck. Breathing easily on room air, no tenderness over his chest wall, CV slow but regular, no significant murmur, normal S1-S2. Lungs are clear, no wheeze or crackles. Abdomen is soft, nontender, nondistended, no organomegaly. He has got soft tissue but no shoulder in his right shoulder joint, can see a PEG at the top of the humerus. Denies any pain throughout that are more the left arm. Has pain in the right groin, some pain when I try to minimally move the hip, complains of pain over the greater trochanter area on palpation. Right leg looks like it could be mildly shortened, still has good pulses on both dorsalis pedis and symmetric in both feet. Sensation normal both lower extremities. No pain throughout his left lower extremity. Documenting provider has reviewed patient's vital signs: yes Course Course ED Course: Patient certainly could have a hip fracture pelvic fracture, will be getting imaging of his pelvis and right hip. Given the fall, we are going to do head CT and cervical spine CT. Will also get a portable chest x-ray. Will get EKG, obtain labs. Will be monitored on pulse oximetry, consider cardiac monitoring if clinically indicated. Will obtain urinalysis to ensure that infection has resolved. If patient does have a hip fracture, will need to talk to the hospitalists about patient's capacity for surgery here. Reevaluation(s) Time of Reevaluation #1: 17:49 Reevaluation #1: Nursing staff did contact me that patient is now requesting pain management before imaging. We will give him IV dose of fentanyl, will cover with nausea preemptively with Zofran. Time of Reevaluation #2: 18:58 Reevaluation #2: Did review with patient and his family that he does have a hip fracture. We will page Orthopedics to let them know. Let them know that have spoken with the hospitalist, he does think that this could be surgically repaired here. Patient is having more pain, will give him more fentanyl. The fentanyl certainly could have reduced his blood pressure some but I do think he has some lower blood pressures due to his Parkinson's. His has his Parkinson's medication here. Consultations Consultation #1: Did briefly speak with our hospitalist Dr. Gomez regarding this patient. Time: 18:52 Consultation #2: Did speak with Henrietta MELARA from Orthopedics. They request patient be NPO after midnight, probable surgery tomorrow. She is aware that Dr. Gomez the hospitalist is in with the patient right now. Time: 19:32 Vital Signs Vital signs: Initial Vital Signs Temperature 99.2 F 12/19/24 17:06 Temperature Source Temporal Artery Scan 12/19/24 17:06 Pulse Rate 61 12/19/24 17:06 Respiratory Rate 16 12/19/24 17:06 Blood Pressure 104/60 12/19/24 17:06 Blood Pressure Mean 74 12/19/24 17:06 Blood Pressure Position Sitting 12/19/24 17:06 Pulse Oximetry 96 12/19/24 17:06 Oxygen Delivery Method Room Air 12/19/24 17:06 Vital Signs Temperature 99.2 F 12/19/24 17:06 Pulse Rate 61 12/19/24 17:06 Respiratory Rate 16 12/19/24 17:06 Blood Pressure 104/60 12/19/24 17:06 Pulse Oximetry 96 12/19/24 17:06 Oxygen Delivery Method Room Air 12/19/24 17:06 Temperature 99.2 F 12/19/24 17:06 Pulse Rate 66 12/19/24 19:18 Respiratory Rate 18 12/19/24 19:18 Blood Pressure 158/88 H 12/19/24 19:18 Pulse Oximetry 95 12/19/24 19:18 Oxygen Delivery Method Room Air 12/19/24 19:18 Medications Administered Medications: Discontinued Medications Generic Name Dose Route Start Last Admin Trade Name Miguel PRN Reason Stop Dose Admin Fentanyl 25 mcg 12/19/24 17:48 12/19/24 17:55 Fentanyl 100 Mcg/2 Ml Inj IVP 12/19/24 17:49 25 mcg ONCE ONE Administration Ondansetron HCl 4 mg 12/19/24 17:48 12/19/24 17:56 Ondansetron 2 Mg/Ml Inj IVP 12/19/24 17:49 4 mg ONCE ONE Administration - Fall Lab Data Attestation: I reviewed the patient's lab results. Labs: Lab Results 12/19/24 Range/Units 17:20 WBC 7.16 (4.50-11.00) K/uL RBC 3.64 L (4.30-5.90) m/uL Hgb 11.1 L (13.5-17.5) gm/dL Hct 33.7 L (37.0-53.0) % MCV 93 (80-100) fL MCH 31 (26-34) pg MCHC 33 (32-36) gm/dL RDW Coeff of Evan 15.9 H (11.5-15.5) % Plt Count 205 (140-440) K/uL Neut % (Auto) 76.9 H (42.0-72.0) % Lymph % (Auto) 11.5 L (20-44) % Oliver % (Auto) 9.1 (0.0-11.0) % Eos % (Auto) 1.3 (0.0-7.0) % Baso % (Auto) 0.8 (0.0-3.0) % Neut # (Auto) 5.50 (1.7-7.0) K/uL Lymph # (Auto) 0.80 L (0.90-2.90) K/uL Oliver # (Auto) 0.70 (0.00-0.90) K/UL Eos # (Auto) 0.09 (0.00-0.50) K/uL Baso # (Auto) 0.06 (0.00-0.30) K/uL Abs Immat Gran (auto) 0.03 (0.00-0.30) K/uL Imm/Tot Granulo (auto) 0.4 % Sodium 134 L (135-149) mmol/L Potassium 4.6 (3.6-5.1) mmol/L Chloride 106 (96-114) mmol/L Carbon Dioxide 24 (20-32) mmol/L Anion Gap 4 L (7-15) mEq/L BUN 28 (7-30) mg/dL Creatinine 1.2 (0.5-1.5) mg/dL Estimated Creat Clear 54.63 Estimated GFR 65 ml/min Glucose 104 (60-115) mg/dL Lactate 1.8 (0.5-1.9) mmol/L Calcium 8.8 (8.4-10.6) mg/dL Total Bilirubin 0.7 (0.1-1.5) mg/dL AST 30 (12-35) U/L ALT 8 (4-50) U/L Alkaline Phosphatase 50 (40-150) U/L Total Protein 6.2 (6.0-8.3) g/dL Albumin 3.7 (3.3-5.0) g/dL Urine Color Jasmin A (Yellow) Urine Appearance Clear (Clear) Urine pH 6.0 (5.0-8.5) Ur Specific [place] 1.025 (1.000-1.030) Urine Protein 2+ A (Negative) Urine Glucose (UA) Negative (Negative) Urine Ketones Trace A (Negative) Urine Blood 3+ A (Negative) Urine Nitrite Negative (Negative) Urine Bilirubin Negative (Negative) Urine Urobilinogen 1.0 (0.2-1.0) Ur Leukocyte Esterase 1+ A (Negative) Urine RBC 10-25 A (0-2) Urine WBC 5-10 A (0-5) Ur Squamous Epith Cells Few (None-Few) Urine Bacteria Few A (None) Digoxin 0.9 (0.8-2.0) ng/mL Imaging Data CT scan - head: Attestation: I have reviewed the pertinent imaging results. Radiologist's impression: Patient: DUSTIN BUTLER Facility:?[facility] Patient ID:?[id number] Site Patient ID:?[id number]. Site :?1950 Study:?CT-Head WITHOUT-12/19/2024 6:24:16 PM Ordering Physician:?Shea Mendez Final Report: INDICATION: Fall. TECHNIQUE: Noncontrast CT of the head with multiplanar reconstruction utilizing bone and soft tissue algorithms. COMPARISON: None available. FINDINGS: No acute intracranial hemorrhage. The almeida-white matter interface is preserved. Mild diffuse parenchymal volume loss. The ventricles are proportional to the sulci. No abnormal extra-axial fluid collection is identified. No calvarial fracture. Unremarkable orbits. The paranasal sinuses and mastoid air cells are clear. IMPRESSION: No acute intracranial abnormality. Please note that all CT scans at this facility use dose modulation, iterative reconstruction, and/or weight-based dosing when appropriate to reduce radiation dose to as low as reasonably achievable. Dictated by Alejandro Campuzano MD @ 12/19/2024 6:51:00 PM (Electronic Signature) CT cervical spine: Attestation: I have reviewed the pertinent imaging results. Radiologist's impression: Patient: DUSTIN BUTLER Facility:?[facility] Patient ID:?[id number] Site Patient ID:?[id number]. Site :?1950 Study:?CT-Spine Cervical WITHOUT-12/19/2024 6:24:37 PM Ordering Physician:?Shea Mendez Final Report: Indication: Fall. Technique: Noncontrast CT of the cervical spine with multiplanar reconstruction. Comparison: None available. Findings: No acute fracture or traumatic subluxation. 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 No lytic or blastic lesion. Unremarkable prevertebral soft tissues. Atherosclerotic calcification at the carotid bifurcations. At least moderate spinal canal stenosis at C3-C4 as a result of the anterolisthesis. Multilevel neural foraminal narrowing, moderate-severe bilaterally at C3-C4, on the right at C4-C5, and on the left at C6-C7. Impression: 1. No acute fracture or traumatic subluxation. 2. 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 3. At least moderate spinal canal stenosis at C3-C4 as a result of the anterolisthesis. MR cervical spine may provide further characterization. Please note that all CT scans at this facility use dose modulation, iterative reconstruction, and/or weight-based dosing when appropriate to reduce radiation dose to as low as reasonably achievable. Dictated by Alejandro Campuzano MD @ 12/19/2024 6:57:11 PM (Electronic Signature) Chest x-ray: Attestation: I have reviewed the pertinent imaging results. Radiologist's impression: Patient: DUSTIN BUTLER Facility:?[facility] Patient ID:?[id number] Site Patient ID:?[id number]. Site :?1950 Study:?XRay-Chest 1V-12/19/2024 6:47:58 PM Ordering Physician:Soledad Mendez Final Report: INDICATION: Fall, pain. TECHNIQUE: Chest 1 view. COMPARISON: None. FINDINGS/IMPRESSION: Cardiovascular and mediastinum: Prominent cardiac silhouette despite portable technique. Unremarkable thoracic aorta. Lungs and pleural spaces: Elevated right hemidiaphragm with adjacent passive atelectasis. No focal consolidation, pleural effusion, or pneumothorax. Bones and soft tissues: No definite displaced rib fracture. High-riding left humeral head, compatible with age-indeterminate complete rotator cuff tear. Right shoulder arthroplasty. Possible old right clavicle fracture. Dictated by Scooter Soares MD @ 12/19/2024 7:56:20 PM (Electronic Signature) XR right hip/pelvis: Attestation: I have reviewed the pertinent imaging results. My impression: I appreciate an acute right hip fracture. Radiologist's impression: Patient: DUSTIN BUTLER Facility:?[facility] Patient ID:?[id number] Site Patient ID:?[id number] Site :?1950 Study:?XRay-Hip Right 2V-12/19/2024 6:54:46 PM Ordering Physician:?Shea Mendez Final Report: INDICATION: Fall, right hip pain COMPARISON: None. TECHNIQUE: One-view AP pelvis, AP right hip, cross-table lateral right hip FINDINGS: There is an acute mildly impacted right femoral neck fracture. No other fracture. Right hip joint space is moderately narrowed without significant subchondral sclerosis or cystic formation. There is a left hip arthroplasty that is partially seen in the field of view. No focal bone lesions. Normal bone mineralization. Atherosclerotic vascular calcifications. Surgical clips in the scrotum. IMPRESSION: Mildly impacted right femoral neck fracture. Dictated by Neeta Rascon MD @ 12/19/2024 7:55:51 PM (Electronic Signature) ECG Data Attestation: I personally reviewed and interpreted this ECG as follows: (Atrial fibrillation verses a flutter with variable response, so ventricular rate at 52 beats per minute. Right bundle branch block. Flipped T-waves inferiorly) ECG interpretation date: 12/19/24 ECG interpretation time: 17:11 Prior ECG tracings: not available for review Discharge Plan Discharge Clinical Impression: Fall Qualifiers: Encounter type: initial encounter Qualified Code(s): W19.XXXA - Unspecified fall, initial encounter Parkinson's disease Qualifiers: Dyskinesia presence: unspecified whether dyskinesia Fluctuating manifestations: unspecified whether manifestations fluctuate Qualified Code(s): G20.A1 - Parkinson's disease without dyskinesia, without mention of fluctuations Fracture of hip, right, closed Qualifiers: Encounter type: initial encounter Qualified Code(s): S72.001A - Fracture of unspecified part of neck of right femur, initial encounter for closed fracture
--- NOTE | 2024-12-19 17:19 | CRLHL7_ITS ---
For Patients: As a result of the Century Cures Act, medical imaging exams and procedure reports are released immediately into your electronic medical record. You may view this report before your referring provider. If you have questions, please contact your health care provider. INDICATION: Fall. TECHNIQUE: Noncontrast CT of the head with multiplanar reconstruction utilizing bone and soft tissue algorithms. COMPARISON: None available. FINDINGS: No acute intracranial hemorrhage. The almeida-white matter interface is preserved. Mild diffuse parenchymal volume loss. The ventricles are proportional to the sulci. No abnormal extra-axial fluid collection is identified. No calvarial fracture. Unremarkable orbits. The paranasal sinuses and mastoid air cells are clear. IMPRESSION: No acute intracranial abnormality. Please note that all CT scans at this facility use dose modulation, iterative reconstruction, and/or weight-based dosing when appropriate to reduce radiation dose to as low as reasonably achievable. Dictated by Alejandro Campuzano MD @ 12/19/2024 6:51:00 PM (Electronically Signed)
--- NOTE | 2024-12-19 17:19 | CRLHL7_ITS ---
For Patients: As a result of the Century Cures Act, medical imaging exams and procedure reports are released immediately into your electronic medical record. You may view this report before your referring provider. If you have questions, please contact your health care provider. INDICATION: Fall, pain. TECHNIQUE: Chest 1 view. COMPARISON: None. FINDINGS/IMPRESSION: Cardiovascular and mediastinum: Prominent cardiac silhouette despite portable technique. Unremarkable thoracic aorta. Lungs and pleural spaces: Elevated right hemidiaphragm with adjacent passive atelectasis. No focal consolidation, pleural effusion, or pneumothorax. Bones and soft tissues: No definite displaced rib fracture. High-riding left humeral head, compatible with age-indeterminate complete rotator cuff tear. Right shoulder arthroplasty. Possible old right clavicle fracture. Dictated by Scooter Soares MD @ 12/19/2024 7:56:20 PM (Electronically Signed)
--- NOTE | 2024-12-19 17:19 | CRLHL7_ITS ---
For Patients: As a result of the Century Cures Act, medical imaging exams and procedure reports are released immediately into your electronic medical record. You may view this report before your referring provider. If you have questions, please contact your health care provider. Indication: Fall. Technique: Noncontrast CT of the cervical spine with multiplanar reconstruction. Comparison: None available. Findings: No acute fracture or traumatic subluxation. 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 No lytic or blastic lesion. Unremarkable prevertebral soft tissues. Atherosclerotic calcification at the carotid bifurcations. At least moderate spinal canal stenosis at C3-C4 as a result of the anterolisthesis. Multilevel neural foraminal narrowing, moderate-severe bilaterally at C3-C4, on the right at C4-C5, and on the left at C6-C7. Impression: 1. No acute fracture or traumatic subluxation. 2. 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 3. At least moderate spinal canal stenosis at C3-C4 as a result of the anterolisthesis. MR cervical spine may provide further characterization. Please note that all CT scans at this facility use dose modulation, iterative reconstruction, and/or weight-based dosing when appropriate to reduce radiation dose to as low as reasonably achievable. Dictated by Alejandro Campuzano MD @ 12/19/2024 6:57:11 PM (Electronically Signed)
--- NOTE | 2024-12-19 17:19 | CRLHL7_ITS ---
For Patients: As a result of the Cures Act, medical imaging exams and procedure reports are released immediately into your electronic medical record. You may view this report before your referring provider. If you have questions, please contact your health care provider. INDICATION: Fall, right hip pain COMPARISON: None. TECHNIQUE: One-view AP pelvis, AP right hip, cross-table lateral right hip FINDINGS: There is an acute mildly impacted right femoral neck fracture. No other fracture. Right hip joint space is moderately narrowed without significant subchondral sclerosis or cystic formation. There is a left hip arthroplasty that is partially seen in the field of view. No focal bone lesions. Normal bone mineralization. Atherosclerotic vascular calcifications. Surgical clips in the scrotum. IMPRESSION: Mildly impacted right femoral neck fracture. Dictated by Neeta Rascon MD @ 12/19/2024 7:55:51 PM (Electronically Signed)
[2024-12-19 17:43] LABS: Lactate* 1.8 mmol/L (0.5-1.9)
[2024-12-19 17:44] LABS: Hematocrit 33.7 % (37.0-53.0); Hemoglobin* 11.1 gm/dL (13.5-17.5); Immature Granulocytes Abs Auto 0.03 K/uL (0.00-0.30); Immature Granulocytes Pct Auto 0.4 %; Mean Corpuscular HGB Conc 33 gm/dL (32-36); Mean Corpuscular Hemoglobin 31 pg (26-34); Mean Corpuscular Volume 93 fL (80-100); RDW Coefficient of Variation % 15.9 % (11.5-15.5); Red Blood Count 3.64 m/uL (4.30-5.90); White Blood Count* 7.16 K/uL (4.50-11.00)
[2024-12-19 17:45] LABS: Lymphocytes Absolute Auto 0.80 K/uL (0.90-2.90); Slide Review Reflex No
--- OUTSIDE RECORDS SUMMARY | 2024-12-19 17:45 | XMS_ITS | Encounter Summary ---
Author Organization [facility] Address [address] [place] [id number] Care Team Providers Care Structural Rigger Name Role Phone Elsewhere, Pcp Primary Care Provider Unavailabl e Encounter Details Date Type Department Care Team (Late st Contact Info) Description 10/06/2024 CPAP Download Remote Patient Monitoring [facility] [address] [place] [address] [facility], Provider, Social History Tobacco Use Types Packs/Day Years Used Date Smoking Tobacco: Former Cigarettes Q uit: 06/23/2006 Cigars Smokeless Tobacco: Never Comments:1-2 cigars/week Alcohol Use Standard Drinks/Week Comments Not Currently 3 (1 standard drink = 0.6 oz pur e alcohol) [facility] Utilities Answer Date Recorded In the past 12 months has e [employer], gas, oil, or water fabrooms threatened to shut off services in your home? No 11/17/2023 Humiliation, Afraid, Rape, and Kick questionnair e Answer Date Recorded Within the last year, have y ou been afraid of your partner or ex-partner? No 11/07/2023 Within the last year, have y ou been humiliated or emotionally abused in other ways by your partner or ex-partner? No Within the last year, have y ou been kicked, hit, slapped, or otherwise physically hurt by your partner or ex-partner? No 11/07/2023 Within the last year, have y ou been raped or forced to have any kind of sexual activity by your partner or ex-partner? No 11/07/2023 Hunger Vital Sign Answer Date Recorded Within the past 12 months, y ou worried that your food would run out before you got the money to buy more. Never true 11/17/19 24 Within the past 12 months, t he food you bought just didn't last and you didn't have money to get more. Never true 11/17/2023 PRAPARE - Transportation Answer Date Re corded In the past 12 months, has l ack of transportation kept you from medical appointments or from getting medications? No 11/07 In the past 12 months, has l ack of transportation kept you from meetings, work, or from getting things needed for daily living? No 11/17/2023 Housing Stability Answer Date Recorded What is your living situation today? I have a [facility] place to live 11/17/2023 Education Answer Date Recorded What is the highest level of school you have completed or the highest degree you have received? Bachelor's degree (e.g., BA, AB, BS) 06/28/2019 Sex and Gender Information Value Date Recorded Sex Assigned at Male 05/12/2021 8:50 AM [employer] Legal Sex Male 4:36 PM [employer] Gender Identity Male 05/12/2021 8:50 AM [employer] Sexual Orientation Straight 05/12/2021 8: 50 AM [employer] documented as of this encounter Plan of Treatment Not on file documented as of this encounter Visit Diagnoses Not on filedocumented in this encounter Care Teams Structural Rigger Relationship Specialty Start Date End Date Elsewhere, Pcp PCP - General Family Medicine 03/21/21 documented as of this encounter
--- OUTSIDE RECORDS SUMMARY | 2024-12-19 17:45 | XMS_ITS | Clinical Summary ---
Author Organization [facility] Address [address] [place] [address] Care Team Providers Care Market Reporter Name Role Phone Elsewhere, Pcp Primary Care Provider Unavailabl e Source Comments Patient records contain information from all sites at [facility]. For routine questions regarding patient records, call [phone] during business hours, M-F 8:00 AM - 5:00 PM Central Time. Record requests for emergency care only can be directed to [phone] at any time.[facility] Allergies Active Allergy Reactions Criticality Noted Date Comments Morphine Other (see comments) 01/24/2011 Hiccups x 24 hrs, has tolerated oxycodone Tetanus Toxoid Headache 11/23/2012 fever and flu like symptoms Medications * This document contains information received from the source organization and may not represent a complete record from that organization. cholecalciferol (VITAMIN D3) 1,000 Unit capsule Take 1,000 mg by mouth every morning. Active finasteride (PROSCAR) 5 mg tablet Take 5 mg by mouth every morning. 7 Active gabapentin (NEURONTIN) 300 mg capsule Take 2 capsules by mouth 3 (three) times a day. 7 AM, 3 PM, and 9 PM 0 Active calcium carbonate (TUMS) 500 mg (200 mg calcium) chewable tablet Chew 1 tablet as needed. Rarely needed. Active digoxin (LANOXIN) 125 mcg (0.125 mg) tablet Take 125 mcg by mouth every morning. 1 Active furosemide (LASIX) 20 mg tablet Take 20 mg by mouth every morning. 0 Active valsartan (DIOVAN) 160 mg tablet Take 160 mg by mouth daily. 1 Active diclofenac sodium (VOLTAREN) 1 % gel Apply topically as needed. 9 Active multivit-min/FA /lycopen/lutein (CENTRUM SILVER MEN ORAL) Take 1 tablet by mouth daily. 1 Active vit C,S-Lj-okdrl-benito tein-zeaxan (PreserVision AREDS-2) 250-90-40-1 mg per capsule 1 capsule daily. 2 Active omeprazole (PriLOSEC) [address] capsule Take 2 capsules (40 mg total) by mouth 2 (two) times a day before breakfast and dinner. 360 capsule 3 2 Active Additional Information Patient taking differently: 20 mgoralDaily before morning meal,, Informant: Self, Reported on 12/30/2023 famotidine (PEPCID) 40 mg tablet TAKE 1 TABLET (40 MG TOTAL) BY MOUTH DAILY. TAKE AT BEDTIME. 90 tablet 3 3 Active Additional Information Patient taking differently:40 mg oralDaily at bedtime,, Reported on 11/06/2023 carbidopa-levod opa (SINEMET) 25-100 mg per tablet TAKE 2.5 TABLETS BY MOUTH 4 (FOUR) TIMES A DAY. 6.30-11.30-3.30- 7.30 900 tablet 3 3 Active Folbic 2.5-25-2 mg per tablet Take 1 tablet by mouth daily. 90 tablet 3 3 Active entacapone (COMTAN) 200 mg tablet Take 0.5 tablets (100 mg total) by mouth 3 (three) times a day. 135 tablet 4 Active Additional Information Patient taking differently:100 mg oral 3 times daily,At 7 AM, 11 AM, and 3 PM, Reported on 11/06/2023 meloxicam (MOBIC) 7.5 mg tablet TAKE 1-2 TABLETS BY MOUTH EVERY DAY FOR PAIN Active nystatin (MYCOSTATIN) 100,000 unit/gram cream 1 Application 2 (two) times a day. 4 Active traZODone (DESYREL) 50 mg tablet TAKE 1/2 TABLET BY MOUTH EVERY DAY AT BEDTIME NEEDED FOR PAIN 4 Active polyethylene glycol (Miralax) 17 gram powder packet Take 10 g by mouth daily. 6 Active melatonin 5 mg tablet Take 5 mg by mouth at bedtime. 6 Active acetaminophen (TYLENOL) 500 mg tablet Take 2 tablets (1,000 mg total) by mouth every 8 (eight) hours for 14 days. 100 tablet 4 Active aspirin 81 mg chewable tablet Chew 1 tablet (81 mg total) 2 (two) times a day for 28 days. 56 tablet 4 Active fluconazole (Diflucan) 100 mg tablet Take 1 tablet by mouth as needed. 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 Nephrectomy Status Post 11/04/2023 Hoarseness 04/19/2022 Dysphagia Oropharyngeal Phase 04/19/2022 Aftercare Total Shoulder Arthroplasty 07/15/2019 History Of Falling 07/07/2019 Failed Total Shoulder Arthroplasty Subsequent Overview (06/28/2019): Added automatically from request for surgery [id number] Atrial Fibrillation Unspecified 02/16/2019 Cancer Renal Cell Carcinoma Personal History 06/2014 Overview (11/04/2023): s/p right partial nephrectomy Hypertension Essential Primary 01/24/2011 Parkinsonism Unspecified 06/26/2010 Gastroesophageal Reflux Disease 12/22/2009 Chronic Kidney Disease Stage 2 Glomerular Filtration Rate 60 To 89 05/22/2009 Parkinsonism Unspecified 06/09/2001 Central Sleep Apnea Syndrome Overview (07/07/2019): BiPAP Apnea Sleep Obstructive Overview (11/04/2023): CPAP Encounters Date Type Department Care Team Description 12/07/2024 CPAP Download Remote Patient Monitoring [facility] [address] [place] [address] [facility], ProviderMD 11/06/2024 CPAP Download Remote Patient Monitoring [facility] [address] [place] [address] [facility], ProviderMD 10/06/2024 CPAP Download Remote Patient Monitoring [facility] [address] [place] [address] [facility], MD Kai from Last 3 Months Immunizations Immunization Administration Dates Next Due Influenza Split 03/09/2013,04/20/2012 Family History Medical History Relation Name Comments Arthritis Brother 1 David Mcbride Eggum Atrial fibrillation Brother 1 David Mcbride Eggum Coronary artery disease Brother 1 David Mcbride Eggum b ypass Heart attack Brother 1 David Mcbride Eggum Lung disease Brother 1 David Mcbride Eggum possibly due to cement dust exposurerequires oxygen Parkinson disease Brother 1 David Mcbride Eggum tremors in both handsstiff, slow walkingspeech affected Osteoarthritis Brother 2 Scooter Eggum Heart Brother 3 Ebenezer coronary calciu m buildup Lupus Daughter 2 long covid Daughter 2 Arthritis Father David Eggum Atrial fibrillation Father David Eggum Coronary artery disease Father David Eggum Heart failure Father David Eggum Cancer Father's Brother 2 Reese Arthritis Half-Brother Ebenezer Eggum Coronary artery disease Half-Brother Ebenezer Eggum Heart failure Half-Brother Ebenezer Eggum Hypertension Half-Brother Ebenezer Eggum Lung disease Half-Brother Ebenezer Eggum requires oxygen Sleep apnea Half-Brother Ebenezer Eggum Parkinson disease Maternal Cousin 1 Melly onset : 40s or 50swheelchair user in last several yearspossible cognitive and speech impairment Brain Tumor Maternal Cousin 2 Mary Kidney cancer Maternal Cousin 4 Kana No Known Problems Maternal Cousin 6 No Known Problems Maternal Cousin 7 Diabetes Maternal Grandfather Heart attack Maternal Grandfather Heart disease Maternal Grandmother Arthritis Mother Olivia Eggum CABG - Coronary artery bypass graft Mother Olivia Eggum 70's Coronary artery disease Mother Olivia Eggum Dementia Mother Olivia Eggum rapid decline in last year Heart failure Mother Olivia Eggum CHF Osteoporosis Mother Olivia Eggum severe, in spi ne Dementia Mother's Brother 1 Joselo Parkinson disease Mother's Brother 1 Joselo guerrier ucinations Heart disease Mother's Brother 2 Parish Heart disease Mother's Sister 2 Hamida Stomach cancer Mother's Sister 3 Paulina No Known Problems Other 1 Theodora Arthritis Other 2 Back problem Other 2 multiple back s urgeries Albinism Paternal Cousin Heart attack Paternal Grandfather Arthritis Sister 1 Rossy Townsend Parkinson disease Sister 1 Rossy Lueb frequent f alls, uses wheelchair to avoid fallsspeech is affectedslow movementno major cognitive impairment Arthritis Sister 2 Renetta Rene airway disease Sister 2 Renetta Rene required some surgery Relation Name Status Comments Brother 1 David Mcbride Eggum Alive Brother 2 Scooter Eggum Alive Brother 3 Ebenezer Alive Daughter 1 Alive Daughter 2 Alive Father David Burgos (Age 86) Trinidadian Father's Brother 1 Father's Brother 2 Reese (Age 70s) Father's Brother 3 Father's Sister 1 Father's Sister 2 Amrita Grandson 1 Alive Grandson 2 Alive Half-Brother Ebenezer Burgos Alive Maternal Cousin 1 Melly (Age 70) Maternal Cousin 2 Mary (Age 65) Maternal Cousin 3 Jonna Alive Maternal Cousin 4 Kana Alive Maternal Cousin 5 Alive Maternal Cousin 6 Alive Maternal Cousin 7 Alive Maternal Grandfather (Age 60-65) Maternal Grandmother (Age 85-90) Mother Olivia Burgos (Age 93) Diane Kilpatrick Europeanmom's cousin had parkinson's Mother's Brother 1 Joselo (Age 77-79) Mother's Brother 2 Parish (Age 80s) Mother's Sister 1 Tosha (Age 85-89) ol d age Mother's Sister 2 Hamida (Age 85-89) Mother's Sister 3 Paulina (Age 60s) Nephew 1 Alive Nephew 2 Alive Nephew 3 Alive Niece 1 Alive Niece 2 Alive Niece 3 Alive Niece 4 Alive Other 1 Theodora Alive Other 2 Alive Paternal Cousin Alive Paternal Grandfather (Age 60s) Paternal Grandmother (Age 80s) Sister 1 Rossy Townsend Some genetic te sting done in [place] Sister 2 Renetta Rene Alive Social History Tobacco Use Types Packs/Day Years Used Date Smoking Tobacco: Former Cigarettes Q uit: 06/23/2006 Cigars Smokeless Tobacco: Never Tobacco Cessation:Counseling Given: Not Answered Comments:1-2 cigars/week Alcohol Use Standard Drinks/Week Comments Not Currently 3 (1 standard drink = 0.6 oz pur e alcohol) [facility] Utilities Answer Date Recorded In the past 12 months has [employer], oil, or water [employer] threatened to shut off services in your [...] your living situation today? I have a [facility] place to live 11/17/2023 Education Answer Date Recorded What is the highest level of school you have completed or the highest degree you have received? Bachelor's degree (e.g., BA, AB, BS) 06/28/2019 Sex and Gender Information Value Date Recorded Sex Assigned at Male 05/12/2021 8:50 AM PATIENT RESOURCE COORDINATOR Legal Sex Male 4:36 PM PATIENT RESOURCE COORDINATOR Gender Identity Male 05/12/2021 8:50 AM PATIENT RESOURCE COORDINATOR Sexual Orientation Straight 05/12/2021 8: 50 AM PATIENT RESOURCE COORDINATOR Last Filed Vital Signs Vital Sign Reading Time Taken Comments Blood Pressure 131/87 11/11/2023 9:21 AM CDT Pulse 70 11/11/2023 9:21 AM CDT Temperature 36.8 C (98.2 F) 11/11/2023 9:21 AM CDT Respiratory Rate 16 11/11/2023 9:21 AM CDT Oxygen Saturation 96% 11/11/2023 9:21 AM CDT Inhaled Oxygen Concentration - - Weight 80.9 kg (178 lb 5.6 oz) 11/06/2023 9:42 A M CDT Height 169 cm (5' 6.54) 11/06/2023 9:42 AM CDT Body Mass Index 28.33 11/06/2023 9:42 AM CDT Plan of Treatment Health Maintenance Due Date Last Done Comments CT Colonography 1952 Cologuard 1950 FIT 1950 Hepatitis C Screening 1950 Colonoscopy 09/07/2020 09/07/2010 (Perf ormed elsewhere) Colorectal Cancer Screening 09/07/2020 COVID-19 Vaccine ( season) 2024 04/01/2022, 04/16/2021, 08/18/2020, Additional history exists Depression Screening (Annual PHQ-2) 06/09/2024 Fall Risk Screen (Annual) 06/09/2024 Office Visit for Blood Pressure Check / Re-check 11/03/2024 11/04/2023 Creatinine Level (Kidney Function Test) 11/24/2024 11/25/2023, 11/18/2023, 10/07/2023, Additional history exists Potassium Level 11/24/2024 11/25/2023, 11/07, 10/07/2023, Additional history exists Sodium Level 11/24/2024 11/25/2023, 11/07, 10/07/2023, Additional history exists Influenza Vaccine (#1) 2025 , 03/11/2022, 02/27/2021, Additional history exists Fasting Glucose for Diabetes Screening 11/24/2026 11/25/2023, 11/18/2023, 10/07/2023, Additional history exists Pneumococcal vaccine (50+ years) Completed 01/12/2020, 03/19/2019, 01/13/2019, Additional history exists Zoster Vaccines Completed 04/14/2023, 09/07, 05/27/2019, Additional history exists Abdominal Aortic Aneurysm (AAA) Screen Completed 05/27/2024, 05/27/2024, 11/21/2021, Additional history exists IPV Vaccines Aged Out No longer eligi ble based on patient's age to complete this topic Medical Devices Implanted Type Area Metal Window Screen Assembler Device Identifier Shelf Expiration Date Model / Serial / Lot Ankle Implant Ankle Implant Left: Ankle Cmnt Bn Hi Visc Pmma 40 - [id number] Implanted:Qty: 1 on 07/15/2019 by Darrion Vigil M.D., Ph.D. at [facility] Bone Cement Right: Shoulder Kit 6191-1-001 / / Humerus Proximal Right W O Cuff - Garcia [id number] Implanted:Qty: 1 on 02/28/2014 Bone or Tissue Other/Leg acy - See Implant Descripti on [employer] Description:Device Manufactu rer - [employer]. Body Location - ?. allograft prostetic composite. Device Status Text - [id number]. Biomet Pin Shanna [id number] - Garcia [id number] Implanted:Qty: 1 on 07/06/2012 Hardware e.g. pins/scre ws/rods BioMet Description:Device Manufactu rer - Biomet Inc. Device Status Text - HARDWARE-664467. Screw Biomet Fixed Locking 4.75 X 25 - Garcia [id number] Implanted:Qty: 1 on 07/06/2012 Hardware e.g. pins/scre ws/rods Other/Leg acy - See Implant Descripti on BioMet Description:Device Manufactu rer - Biomet Inc. Body Location - Other. Right. Device Status Text - HARDWARE-805778. Screw Biomet Fixed Locking 4.75 X 15 - Garcia [id number] Implanted:Qty: 1 on 07/06/2012 Hardware e.g. pins/scre ws/rods Other/Leg acy - See Implant Descripti on BioMet Description:Device Manufactu rer - Biomet Inc. Body Location - Other. Right. Device Status Text - HARDWARE-308839. Screw Biomet Fixed Locking 4.75 X 15 - Garcia [id number] Implanted:Qty: 1 on 07/06/2012 Hardware e.g. pins/scre ws/rods Other/Leg acy - See Implant Descripti on BioMet Description:Device Manufactu rer - Biomet Inc. Body Location - Other. Right. Device Status Text - HARDWARE-109570. Screw Biomet Fixed Locking 4.75 X 30 - Garcia [id number] Implanted:Qty: 1 on 07/06/2012 Hardware e.g. pins/scre ws/rods Other/Leg acy - See Implant Descripti on BioMet Description:Device Manufactu rer - Biomet Inc. Body Location - Other. Right. Device Status Text - HARDWARE-487947. Syn-Screw Locking 3.5x28 - Garcia [id number] Implanted:Qty: 2 on 06/16/2013 Hardware e.g. pins/scre ws/rods Depuy Synthes Description:Device Manufactu rer - Synthes. Device Status Text - HARDWARE-80945. Pin Shanna Threaded Single End 3 32 - Garcia [id number] Implanted:Qty: 1 on 06/16/2013 Hardware e.g. pins/scre ws/rods [place] Description:Device Manufactu rer - Nuforce Donny.. Device Status Text - HARDWARE-9485. Syn-Screw Sylvester Self Tap 3.5 X 26 - Garcia [id number] Implanted:Qty: 2 on 06/16/2013 Hardware e.g. pins/scre ws/rods Depuy Synthes Description:Device Manufactu rer - Synthes. Device Status Text - HARDWARE-85726. Syn-Screw Sylvester Self Tap 3.5 X 28 - Garcia [id number] Implanted:Qty: 3 on 06/16/2013 Hardware e.g. pins/scre ws/rods Depuy Synthes Description:Device Manufactu rer - Synthes. Device Status Text - HARDWARE-20868. Dion Wire Loop Closed 30cm - Garcia [id number] Implanted:Qty: 2 on 06/16/2013 Hardware e.g. pins/scre ws/rods Cassidy Biomet Description:Device Manufactu rer - Cassidy. Device Status Text - HARDWARE-1186. Syn-Screw Locking 3.5x30 - Garcia [id number] Implanted:Qty: 1 on 06/16/2013 Hardware e.g. pins/scre ws/rods Depuy Synthes Description:Device Manufactu rer - Synthes. Device Status Text - HARDWARE-73506. Syn-Screw Locking 3.5x22 - Garcia [id number] Implanted:Qty: 1 on 06/16/2013 Hardware e.g. pins/scre ws/rods Depuy Synthes Description:Device Manufactu rer - Synthes. Device Status Text - HARDWARE-68279. Syn-Screw Locking 3.5x12 - Garcia [id number] Implanted:Qty: 1 on 06/16/2013 Hardware e.g. pins/scre ws/rods Depuy Synthes Description:Device Manufactu rer - Synthes. Device Status Text - HARDWARE-28619. Syn-Screw Locking 3.5x26 - Garcia [id number] Implanted:Qty: 1 on 06/16/2013 Hardware e.g. pins/scre ws/rods Depuy Synthes Description:Device Manufactu rer - Synthes. Device Status Text - HARDWARE-70225. Lcp-Plate 3.5 X 12ho 163mm - Garcia [id number] Implanted:Qty: 1 on 06/16/2013 Hardware e.g. pins/scre ws/rods Depuy Synthes Description:Device Manufactu rer - Synthes. Device Status Text - HARDWARE-80444. Syn-Screw Sylvester Self Tap 3.5 X 34 - Garcia [id number] Implanted:Qty: 1 on 02/28/2014 Hardware e.g. pins/scre ws/rods Depuy Synthes Description:Device Manufactu rer - Synthes. Device Status Text - HARDWARE-78724. Syn-Screw Sylvester Self Tap 3.5 X 32 - Garcia [id number] Implanted:Qty: 1 on 02/28/2014 Hardware e.g. pins/scre ws/rods Depuy Synthes Description:Device Manufactu rer - Synthes. Device Status Text - HARDWARE-02902. Syn-Screw Locking 3.5x28 - Garcia [id number] Implanted:Qty: 1 on 02/28/2014 Hardware e.g. pins/scre ws/rods Depuy Synthes Description:Device Manufactu rer - Synthes. Device Status Text - HARDWARE-10144. Sm Frag-Screw Canc Full 4 X 30 - Garcia [id number] Implanted:Qty: 1 on 02/28/2014 Hardware e.g. pins/scre ws/rods Depuy Synthes Description:Device Manufactu rer - Synthes. Device Status Text - HARDWARE-37911. Lcp-Plate 3.5 X 14ho 189mm - Garcia [id number] Implanted:Qty: 1 on 02/28/2014 Hardware e.g. pins/scre ws/rods Depuy Synthes Description:Device Manufactu rer - Synthes. Device Status Text - HARDWARE-65736. Syn-Screw Sylvester Self Tap 3.5 X 26 - Garcia [id number] Implanted:Qty: 3 on 02/28/2014 Hardware e.g. pins/scre ws/rods Depuy Synthes Description:Device Manufactu rer - Synthes. Device Status Text - HARDWARE-63581. Syn-Screw Sylvester Self Tap 3.5 X 28 - Garcia [id number] Implanted:Qty: 1 on 02/28/2014 Hardware e.g. pins/scre ws/rods Depuy Synthes Description:Device Manufactu rer - Synthes. Device Status Text - HARDWARE-06559. Syn-Screw Sylvester Self Tap 3.5 X 45 - Garcia [id number] Implanted:Qty: 1 on 02/28/2014 Hardware e.g. pins/scre ws/rods Depuy Synthes Description:Device Manufactu semiosBIO Technologies - Clear Advantage Collar. Device Status Text - HARDWARE-22246. Syn-Screw Sylvester Self Tap 3.5 X 30 - Garcia [id number] Implanted:Qty: 1 on 02/28/2014 Hardware e.g. pins/scre ws/rods Depuy Synthes Description:Device Manufactu semiosBIO Technologies - Clear Advantage Collar. Device Status Text - HARDWARE-31272. Dion Wire Loop Closed 30cm - Garcia [id number] Implanted:Qty: 1 on 02/28/2014 Hardware e.g. pins/scre ws/rods Cassidy Biomet Description:Device Manufactu rer - Cassidy. Device Status Text - HARDWARE-1186. Syn-Screw Sylvester Self Tap 3.5 X 40 - Garcia [id number] Implanted:Qty: 1 on 02/28/2014 Hardware e.g. pins/scre ws/rods Depuy Synthes Description:Device Manufactu LC [employer]. Device Status Text - HARDWARE-39236. Hip Implant Hip Implant Left: Hip Knee Implant Knee Implant Left: Knee Mesh Or Patch Mesh or Patch Bilateral : Groin Plug Bone Higbee 24mm - Garcia [id number] Implanted:Qty: 1 on 06/16/2013 Mesh or Patch [place] Description:Device Manufactu rer - [place] Donny.. Device Status Text - MESHPATCH-470. Cement Bone Large - Garcia [id number] Implanted:Qty: 1 on 07/06/2012 Misc Other [place] Description:Device Manufactu rer - [place] Donny.. Device Status Text - MISCOTHER-2840. Cement Bone Large - Garcia [id number] Implanted:Qty: 1 on 06/16/2013 Misc Other [place] Description:Device Manufactu rer - Kit Donny.. Device Status Text - MISCOTHER-2840. Cement Bone Large - Garcia [id number] Implanted:Qty: 2 on 02/28/2014 Mis Other Kit Description:Device Manufactu rer - Kit Donny.. Device Status Text - MISCOTHER-2840. Biomet Central Screw 6.5mm X 30mm - Garcia [id number] Implanted:Qty: 1 on 07/06/2012 Shoulder Implant Other/Leg acy - See Implant Descripti on BioMet Description:Device Manufactu rer - Biomet Inc. Body Location - Other. Right. Device Status Text - SHOULDER-112108. Biomet Glenoid Baseplate Mini W Adaptor - Garcia [id number] Implanted:Qty: 1 on 07/06/2012 Shoulder Implant Other/Leg acy - See Implant Descripti on BioMet Description:Device Manufactu rer - Biomet Inc. Body Location - Other. Right. Device Status Text - SHOULDER-235862. Bsplt Glnd Cmp Tprd 25 - [id number] Implanted:Qty: 1 on 07/15/2019 by Darrion Vigil M.D., Ph.D. at [facility] Shoulder Implant Right: Shoulder Cassidy Biomet 06/22/2028 [id number] / / [id number] Comp Glnd Vrs Dl 40 - [id number] Implanted:Qty: 1 on 07/15/2019 by Darrion Vigil M.D., Ph.D. at [facility] Shoulder Implant Right: Shoulder Cassidy Biomet 05/08/2029 [id number] / / [id number] Equinoxe Distal Stem 9mm X 80mm Implanted:Qty: 1 on 07/15/2019 by Darrion Vigil M.D., Ph.D. at [facility] Shoulder Implant Right: Shoulder Exactech Inc [id number] 02/14/2029 308-01-09 / [id number] / Equinoxe Distal Fixation Ring Implanted:Qty: 1 on 07/15/2019 by Darrion Vigil M.D., Ph.D. at [facility] Shoulder Implant Right: Shoulder Exactech Inc [id number] 06/24/2022 308-- / [id number] / Equinoxe Middle Segment 50mm Implanted:Qty: 1 on 07/15/2019 by Darrion Vigil M.D., Ph.D. at [facility] Shoulder Implant Right: Shoulder Exactech Inc [id number] 06/24/2022 30850 / [id number] / Equinoxe Middle Segment 75mm Implanted:Qty: 1 on 07/15/2019 by Darrion Vigil M.D., Ph.D. at [facility] Shoulder Implant Right: Shoulder Exactech Inc [id number] 05/23/2029 308- / [id number] / Equinoxe Proximal Body Medium +0mm Implanted:Qty: 1 on 07/15/2019 by Darrion Vigil M.D., Ph.D. at [facility] Shoulder Implant Right: Shoulder Exactech Inc [id number] 11/17/2028 308-10- / [id number] / Taper Locking Screw 125 Yellow Implanted:Qty: 1 on 07/15/2019 by Darrion Vigil M.D., Ph.D. at [facility] Shoulder Implant Right: Shoulder Exactech Inc [id number] 02/09/2025 30816 / [id number] / Equinoxe 40mm Humeral Liner +0 Implanted:Qty: 1 on 07/15/2019 by Darrion Vigil M.D., Ph.D. at [facility] Shoulder Implant Right: Shoulder Exactech Inc [id number] 01/24/2024 320-40-00 / [id number] / Equinoxe Fixed Angle Torque Defining Screw Kit Implanted:Qty: 1 on 07/15/2019 by Darrion Vigil M.D., Ph.D. at [facility] Shoulder Implant Right: Shoulder Exactech Inc [id number] 05/23/2024 320-20-00 / [id number] / Equinoxe Humeral Adapter Tray Implanted:Qty: 1 on 07/15/2019 by Darrion Vigil M.D., Ph.D. at [facility] Shoulder Implant Right: Shoulder Exactech Inc [id number] 06/06/2029 320-10-00 / [id number] / Explanted Type Area Metal Window Screen Assembler Device Identifier Shelf Expiration Date Model / Serial / Lot Biomet Humeral Bearing +3 44m X 41mm - Garcia [id number] Implanted:Qty: 1 on 02/28/2014 Explanted:Qty: 1 on 07/15/2019 by Darrion Vigil M.D., Ph.D. at [facility] Shoulder Implant Right: Other/Legacy - See Implant Description BioMet Description:Device Manufactu rer - Biomet Inc. Body Location - Right. Device Status Text - SHOULDER-428858. Bio. Comp Primary Mini Stem 8mm - Garcia [id number] Implanted:Qty: 1 on 02/28/2014 Explanted:Qty: 1 on 07/15/2019 by Darrion Vigil M.D., Ph.D. at [facility] Shoulder Implant Right: Other/Legacy - See Implant Description BioMet Description:Device Manufactu rer - Biomet Inc. Body Location - Right. Device Status Text - SHOULDER-421192. Biomet Hum Tray Comp Rev 44mm +10 - Garcia [id number] Implanted:Qty: 1 on 02/28/2014 Explanted:Qty: 1 on 07/15/2019 by Darrion Vigil M.D., Ph.D. at [facility] Shoulder Implant Right: Other/Legacy - See Implant Description BioMet Description:Device Manufactu rer - Biomet Inc. Body Location - Right. Device Status Text - SHOULDER-732604. Biomet Glenospher Std. 41mm - Garcia [id number] Implanted:Qty: 1 on 07/06/2012 Explanted:Qty: 1 on 07/15/2019 by Darrion Vigil M.D., Ph.D. at [facility] Shoulder Implant Other/Legacy - See Implant Description BioMet Description:Device Manufactu rer - [employer] Inc. Body Location - Other. Right. Device Status Text - SHOULDER-405611. 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 Stable nodular thickening of the bilateral adrenal glands, which are not optimally characterized on this contrast-enhanced CT. 2. No convincing evidence of metastasis in the abdomen or pelvis otherwise. Narrative 11/22/2021 6:00 PM CDT EXAM: CT ABDOMEN PELVIS WITH IV CONTRAST. COMPARISON: PET/CT dated 11/12/[address] dated 10/19/2021. FINDINGS: Small hiatal hernia. No suspicious masses seen in the liver. The spleen and pancreas are unremarkable. Stable nodular thickening of the bilateral adrenal glands. The right adrenal nodule measures 1.9 x 1.5 cm and the left adrenal nodule measures 2.5 x 1.2 cm. These measure low attenuation (< 10 HU) on the nondiagnostic CT of the recent PET/CT but are indeterminate on today's contrast-enhanced CT. Cortical scarring in the mid right kidney with linear stones or calcifications. Duplicated right renal collecting system. Small nonobstructing calyceal tip stones in the left kidney. Cortical scarring in the lower left kidney. Residual contrast in the colon. No small bowel dilatation. Atherosclerotic calcifications of the aortoiliac arteries. Degenerative changes of the spine and hip joints. Left GURJIT. Multilevel compression fractures, most pronounced in the T11 and L4 vertebrae. Vasectomy clips. This examination was performed in conjunction with a CT of the chest, which will be reported separately. Procedure Note David Jean M.D., Ph.D. - 11/22/2021 EXAM: CT ABDOMEN PELVIS WITH IV CONTRAST. COMPARISON: PET/CT dated 11/12/[address] dated 10/19/2021. FINDINGS: Small hiatal hernia. No suspicious masses seen in the liver.The spleen and pancreas are unremarkable. Stable nodular thickening of the bilateral adrenal glands. The rightadrenal nodule measures 1.9 x 1.5 cm and the left adrenal nodule measures 2.5 x 1.2 cm. These measurelow attenuation (< 10 HU) on the nondiagnostic CT of the recent PET/CT but are indeterminate on today'scontrast-enhanced CT. Cortical scarring in the mid right kidney with linear stones orcalcifications. Duplicated right renal collecting system. Small nonobstructing calyceal tip stones in theleft kidney. Cortical scarring in the lower left kidney. Residual contrast in the colon. No small bowel dilatation. Atheroscleroticcalcifications of the aortoiliac arteries. Degenerative changes of the spine and hip joints.Left GURJIT. Multilevel compression fractures, most pronounced in the T11 and L4 vertebrae.Vasectomy clips. This examination was performed in conjunction with a CT of the chest,which will be reported separately. IMPRESSION: 1. Stable nodular thickening of the bilateral adrenal glands, which arenot optimally characterized on this contrast-enhanced CT. 2. No convincing evidence of metastasis in the abdomen or pelvisotherwise. Mariela Camacho M.D. Cam CT PROCEDURES Final Re sult * Comprehensive Metabolic Panel (11/12/2021 10:55 AM CDT) Potassium, S 5.0 3.6 - 5.2 mmol/L 11/12/2021 11:53 AM CDT DTL Sodium, S 137 135 - 145 mmol/L 11/12/2021 11:53 AM CDT DTL Chloride, S 99 98 - 107 mmol/L 11/12/2021 11:53 AM CDT DTL Bicarbonate, S 27 22 - 29 mmol/L 11/12/2021 11:53 AM CDT DTL Anion Gap 11 7 - 15 11/12/2021 11:53 AM CDT DTL BUN (Blood Urea Nitrogen), S 18 8 - 24 mg/dL 11/12/2021 11:53 AM CDT DTL Creatinine 0.81 0.74 - 1.35 mg/dL 11/12/2021 11:53 AM CDT DTL eGFR-Non Black/ >90 >=60 mL/min/BS A 11/12/2021 11:53 AM CDT DTL Comment: ----ADDITIONAL INFORMATION---- Estimated GFR calculated using the 2009 CKD_EPI creatinine equation. eGFR-Black/ >90 >=60 mL/min/BS A 11/12/2021 11:53 AM CDT DTL Comment: ----ADDITIONAL INFORMATION---- Estimated GFR calculated using the 2009 CKD_EPI creatinine equation. Calcium, Total, S 9.9 8.8 - 10.2 mg/dL 11/12/2021 11:53 AM CDT DTL Glucose, S 104 70 - 140 mg/dL 11/12/2021 11:53 AM CDT DTL Protein, Total, S 7.2 6.3 - 7.9 g/dL 11/12/2021 11:53 AM CDT DTL Albumin, S 4.5 3.5 - 5.0 g/dL 11/12/2021 11:53 AM CDT DTL Aspartate Aminotransferase (AST), S 26 8 - 48 U/L 11/12/2021 11:53 AM CDT DTL Alkaline Phosphatase, S 83 40 - 129 U/L 11/12/2021 11:53 AM CDT DTL Alanine Aminotransferase (ALT), S 9 7 - 55 U/L 11/12/2021 11:53 AM CDT DTL Bilirubin, Total, S 0.9 <=1.2 mg/dL 11/12/2021 11:53 AM CDT DTL Blood (Blood, Venous) 11/12/2021 10:55 AM CDT 11/12/2021 11:34 AM CDT Shady Martin M.D. LAB BLOOD ADD-ON Final Result [facility] [address] [place] [address], [place] DTL [facility] [address] [place] [address] from Last 3 Months or Most Recently Relevant to Health Maintenance Insurance MEDICARE [facility] Advance Directives For more information, please contact: [phone] * Full Code (Latest Code Status on File) Date Activated Date Inactivated Comments 11/07/2023 4:55 PM 11/11/2023 3:13 PM Question Answer Comments Full Code: Not Discussed Due to: Not medically appropriate Care Teams Market Reporter Relationship Specialty Start Date End Date Elsewhere, Pcp PCP - General Family Medicine 03/21/21
--- OUTSIDE RECORDS SUMMARY | 2024-12-19 17:45 | XMS_ITS | Encounter Summary ---
Author Organization [facility] Address [address] [place] [address] Care Team Providers Care Green Marketing Specialist Name Role Phone Elsewhere, Pcp Primary Care Provider Unavailabl e Encounter Details Date Type Department Care Team (Late st Contact Info) Description 11/05/2018 [facility] [address] [place] [address] García Lopez M.D. [address] [place] [address] Obstructive Sleep Apnea Adult (Primary Dx); Fibrillation Atrial (HCC); Parkinson Disease (HCC) Social History Tobacco Use Types Packs/Day Years Used Date Smoking Tobacco: Every Day Sex and Gender Information Value Date Recorded Sex Assigned at Male 05/12/2021 8:50 AM SPEECH PATHOLOGIST Legal Sex Male 4:36 PM SPEECH PATHOLOGIST Gender Identity Male 05/12/2021 8:50 AM SPEECH PATHOLOGIST Sexual Orientation Straight 05/12/2021 8: 50 AM SPEECH PATHOLOGIST documented as of this encounter Plan of Treatment Not on file documented as of this encounter Visit Diagnoses Diagnosis Obstructive Sleep Apnea Adult- Primary Atrial Fibrillation Unspecified (HCC) Parkinsonism Unspecified (HCC) documented in this encounter Additional Health Concerns Infection Onset Date Last Indicated Resolved Time COVID19 Pending 11/12/2021 11/12/2021 11/12/2021 7 :43 PM CDT COVID19 Pending 11/21/2021 11/21/2021 11/21/2021 8 :50 PM CDT COVID19 11/21/2021 11/21/2021 12/11/2021 4:46 AM CDT documented as of this encounter Care Teams Green Marketing Specialist Relationship Specialty Start Date End Date Elsewhere, Pcp PCP - General Family Medicine 03/21/21 documented as of this encounter
--- OUTSIDE RECORDS SUMMARY | 2024-12-19 17:45 | XMS_ITS | Encounter Summary ---
Author Organization [facility] Address [address] [place] [id number] Care Team Providers Care Clinical Support Specialist Name Role Phone Elsewhere, Pcp Primary Care Provider Unavailabl e Encounter Details Date Type Department Care Team (Late st Contact Info) Description 11/06/2024 CPAP Download Remote Patient Monitoring [facility] [address] [place] [address] [facility], Provider, Social History Tobacco Use Types Packs/Day Years Used Date Smoking Tobacco: Former Cigarettes Q uit: 06/23/2006 Cigars Smokeless Tobacco: Never Comments:1-2 cigars/week Alcohol Use Standard Drinks/Week Comments Not Currently 3 (1 standard drink = 0.6 oz pur e alcohol) [facility] Utilities Answer Date Recorded In the past 12 months has e [employer], gas, oil, or water [employer] threatened to shut off services in your [...] your living situation today? I have a [facility] place to live 11/17/2023 Education Answer Date Recorded What is the highest level of school you have completed or the highest degree you have received? Bachelor's degree (e.g., BA, AB, BS) 06/28/2019 Sex and Gender Information Value Date Recorded Sex Assigned at Male 05/12/2021 8:50 AM TIP TESTER Legal Sex Male 4:36 PM TIP TESTER Gender Identity Male 05/12/2021 8:50 AM TIP TESTER Sexual Orientation Straight 05/12/2021 8: 50 AM TIP TESTER documented as of this encounter Plan of Treatment Not on file documented as of this encounter Visit Diagnoses Not on filedocumented in this encounter Care Teams Clinical Support Specialist Relationship Specialty Start Date End Date Elsewhere, Pcp PCP - General Family Medicine 03/21/21 documented as of this encounter
--- OUTSIDE RECORDS SUMMARY | 2024-12-19 17:45 | XMS_ITS | Encounter Summary ---
Author Organization [facility] Address [address] [place] [id number] Care Team Providers Care Hide Selector Name Role Phone Elsewhere, Pcp Primary Care Provider Unavailabl e Encounter Details Date Type Department Care Team (Late st Contact Info) Description 12/07/2024 CPAP Download Remote Patient Monitoring [facility] [address] [place] [address] [facility], Provider, Social History Tobacco Use Types Packs/Day Years Used Date Smoking Tobacco: Former Cigarettes Q uit: 06/23/2006 Cigars Smokeless Tobacco: Never Comments:1-2 cigars/week Alcohol Use Standard Drinks/Week Comments Not Currently 3 (1 standard drink = 0.6 oz pur e alcohol) [facility] Utilities Answer Date Recorded In the past 12 months has e [employer], gas, oil, or water [employer] threatened to shut off services in your [...] your living situation today? I have a [facility] place to live 11/17/2023 Education Answer Date Recorded What is the highest level of school you have completed or the highest degree you have received? Bachelor's degree (e.g., BA, AB, BS) 06/28/2019 Sex and Gender Information Value Date Recorded Sex Assigned at Male 05/12/2021 8:50 AM CATTLE KNOCKER Legal Sex Male 4:36 PM CATTLE KNOCKER Gender Identity Male 05/12/2021 8:50 AM CATTLE KNOCKER Sexual Orientation Straight 05/12/2021 8: 50 AM CATTLE KNOCKER documented as of this encounter Plan of Treatment Not on file documented as of this encounter Visit Diagnoses Not on filedocumented in this encounter Care Teams Hide Selector Relationship Specialty Start Date End Date Elsewhere, Pcp PCP - General Family Medicine 03/21/21 documented as of this encounter
[2024-12-19] MEDS: ONDANSETRON 2 MG/ML inj 4 MG IVP (17:56)
[2024-12-19 18:07] LABS: Albumin* 3.7 g/dL (3.3-5.0); Chloride* 106 mmol/L (96-114); Sodium* 134 mmol/L (135-149)
[2024-12-19 18:08] LABS: Potassium* 4.6 mmol/L (3.6-5.1)
[2024-12-19 18:10] LABS: Alanine Aminotransferase* 8 U/L (4-50); Alkaline Phosphatase* 50 U/L (40-150); Anion Gap 4 mEq/L (7-15); Aspartate Amino Transferase* 30 U/L (12-35); Bilirubin Total* 0.7 mg/dL (0.1-1.5); Blood Urea Nitrogen* 28 mg/dL (7-30); Calcium* 8.8 mg/dL (8.4-10.6); Carbon Dioxide* 24 mmol/L (20-32); Creatinine* 1.2 mg/dL (0.5-1.5); Est. Creatinine Clearance* 54.63; Estimated Glomerular Filt Rate 65 ml/min; Glucose* 104 mg/dL (60-115); Total Protein* 6.2 g/dL (6.0-8.3)
[2024-12-19 19:02] LABS: Appearance Urine Clear (Clear)
[2024-12-19 19:53] LABS: Digoxin* 0.9 ng/mL (0.8-2.0)
--- NOTE | 2024-12-19 20:58 | PM.IMHP1 ---
Assessment and Plan Assessment and plan (1) Fracture of hip, right, closed: Status: Acute (2) Parkinson's disease: Problem comment: Quite disabling. 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 Now chronically dislocated. Able to hold onto a walker but not put weight on walker with right arm. Likely this will make ambulation with a walker and a new hip fracture very difficult. Status: Acute (4) Delirium: Problem comment: According to the patient's he had a couple days of delirium following his 2 most recent hospitalizations for surgery. He is high risk for recurrent problems with delirium Status: Acute (5) Anticoagulation management encounter: Problem comment: Patient has chronic AFib. Chart indicates no ongoing anticoagulation for AFib due to fall risk. Now patient also has hip fracture with significant VTE risk. Consider anticoagulation postop for 1 month while getting rehab. Status: Acute (6) BPH (benign prostatic hyperplasia): Problem comment: Place Rader. Remove Rader once he has recovered from surgery and began to eat and drink. Check bladder scan postoperatively when Rader is out Status: Acute (7) Pain: Problem comment: Patient has chronic pain. This is likely going to be difficult to manage postoperatively with risk for delirium. Status: Acute (8) Left rotator cuff tear arthropathy: Status: Chronic (9) Atrial fibrillation: Problem comment: On digoxin for rate control. No anticoagulation due to fall risk. Continue to monitor. If too bradycardic may be needs a reduction in digoxin dose Consider anticoagulation postoperatively for 1 month due to combined risk of VTE and cardioembolic stroke from AFib Status: Acute (10) Insomnia: Status: Acute (11) Hypertension: Problem comment: Hold home blood pressure medications. Patient is at risk for orthostatic hypotension, especially with perioperative blood loss from hip fracture Status: Acute (12) Discharge planning issues: Problem comment: Will need [facility] facility [facility]hab when he has recovered from this surgery Status: Acute Plan 73-year-old male admitted to the hospital with right femoral neck fracture. He is admitted for surgical repair and recovery. He currently is optimized for surgery. He is at high risk for complications postoperatively, especially postop delirium, difficulty with pain management, immobility, urinary retention, Total Time Spent Total Time Spent: Total time spent today is 80 minutes in coordination of care, review of outside records, discussion with and other providers ongoing management hip fracture and postoperative care Hospitalist- H&P: HPI History of Present Illness Date Seen: 12/19/24 Chief complaint: fall Narrative: Jose Daniel Burgos is a 73 year old male with advanced Parkinson's admitted to the hospital after a fall at home with right hip injury today. Patient lives independently with his . She is a retired physical therapist. She normally provides standby assistance when he ambulates. Today she left the house briefly to get groceries and when she returned she found him on the floor. He denies loss of consciousness. He denies hitting his head. Other than hip pain he denies any other injuries or concerns today. Prior to the fall he was feeling fine. He was on an antibiotic for UTI for the last 5 days. His last dose was this morning. He has persistent atrial fibrillation/atrial flutter. Rate control is with digoxin. He is not on anticoagulation due to fall risk. Review of Systems Narrative: Patient denies any new illness and no injuries other than his right hip Medical Decision Making Medical Decision Making Has patient completed a Health Care Directive: Yes [facility] Medical History (Updated 12/19/24 @ 21:30 by Rickey Gomez MD) Discharge planning issues ?Z75.8 - Other problems related to medical facilities and other health care (ICD-10) Anticoagulation management encounter ?Z51.81 - Encounter for therapeutic drug level monitoring (ICD-10) ?Z79.01 - care home (current) use of anticoagulants (ICD-10) Obstructive sleep apnea ?G47.33 - Obstructive sleep apnea (adult) (pediatric) (ICD-10) Delirium ?R41.0 - Disorientation, unspecified (ICD-10) Breast mass, right ?N63.10 - Unspecified lump in the right breast, unspecified quadrant (ICD-10) BPH (benign prostatic hyperplasia) ?N40.0 - Benign prostatic hyperplasia without lower urinary tract symptoms (ICD-10) Dysarthria and anarthria ?R47.1 - Dysarthria and anarthria (ICD-10) Delirium due to known physiological condition ?F05 - Delirium due to known physiological condition (ICD-10) Urinary tract infection ?N39.0 - Urinary tract infection, site not specified (ICD-10) Polyosteoarthritis ?M15.9 - Polyosteoarthritis, unspecified (ICD-10) Benign prostatic hyperplasia with lower urinary tract symptoms ?N40.1 - Benign prostatic hyperplasia with lower urinary tract symptoms (ICD-10) History of falling ?Z91.81 - History of falling (ICD-10) Recurrent dislocation, right shoulder ?M24.411 - Recurrent dislocation, right shoulder (ICD-10) Acute posthemorrhagic anemia ?D62 - Acute posthemorrhagic anemia (ICD-10) Ataxia ?R27.0 - Ataxia, unspecified (ICD-10) Rash ?R21 - Rash and other nonspecific skin eruption (ICD-10) Insomnia ?G47.00 - Insomnia, unspecified (ICD-10) Esophageal dysphagia ?R13.19 - Other dysphagia (ICD-10) Hypertension ?I10 - Essential (primary) hypertension (ICD-10) Parkinson's disease ?G20 - Parkinson's disease (ICD-10) Inguinal hernia ?K40.90 - Unilateral inguinal hernia, without obstruction or gangrene, not specified as recurrent (ICD-10) Atrial fibrillation ?I48.91 - Unspecified atrial fibrillation (ICD-10) Anterior shoulder dislocation ?S43.016A - Anterior dislocation of unspecified humerus, initial encounter (ICD-10) Pain ?R52 - Pain, unspecified (ICD-10) Surgical History History of shoulder surgery (11/06/23) ?Z98.890 - Other specified postprocedural states (ICD-10) S/P ORIF (open reduction internal fixation) fracture (09/14/23) ?Z98.890 - Other specified postprocedural states (ICD-10) ?Z87.81 - Personal history of (healed) traumatic fracture (ICD-10) History of reverse total replacement of right shoulder joint ?Z98.890 - Other specified postprocedural states (ICD-10) H/O hernia repair ?Z98.890 - Other specified postprocedural states (ICD-10) ?Z87.19 - Personal history of other diseases of the digestive system (ICD-10) Family History (Updated 12/19/24 @ 21:13 by Rickey Gomez MD) Father Coronary artery disease Atrial fibrillation Brother Coronary artery disease Atrial fibrillation Parkinsons disease Social History (Updated 12/19/24 @ 21:15 by Rickey Gomez MD) Narrative: and lives independently in a home with his Erin. His is a retired physical therapist. She is normally with him when he is up for standby assistance all the time. She is healthcare power of attorney recruiter. Code status is full. He does not smoke. He does not drink alcohol What is your current living situation?: I presently have a place to live Problems where you live: no known problems Problems where you live details: none In the past 12 months, utilities in danger of being shut off: no In past 12 months, lack of transportation kept you from medical appts, meetings, work, or getting things needed for daily living: no In the past 12 mos, have been you worried that your food would run out before you had money to buy more?: never true In the past 12 mos, the food you bought just didn't last and you didn't have money to buy more?: never true Smoking Status: Former smoker What tobacco products do you use: cigarettes Smoking quit date/years: <= 15 years ago and cigars Do you use any of these nicotine containing products: None Second hand tobacco smoke exposure: No How often do you have a drink containing alcohol: monthly or less Alcohol type: beer How many standard drinks containing alcohol do you have on a typical day: 1 or 2 How often do you have six or more drinks on one occasion: Never AUDIT-C Alcohol total score: 1 Non-prescribed substance use: denies use How often does anyone, including family, friends and others, physically hurt you: never How often does anyone, including family, friends and others, insult or talk down to you: never How often does anyone, including family, friends and others, threaten you with harm: never How often does anyone, including family, friends and others, scream or curse at you: never service: No Meds Home Medications and Allergies Home Medications ?Medication ?Instructions ?Recorded ?Confirmed ?Type carbidopa 25 mg-levodopa 100 mg 1 tab PO QID 03/15/22 10/27/24 History tablet cholecalciferol (vitamin D3) 50 50 mcg PO DAILY 03/15/22 10/27/24 History mcg (2,000 unit) tablet digoxin 125 mcg (0.125 mg) tablet 0.125 mg PO DAILY 03/15/22 10/27/24 History entacapone 200 mg tablet 200 mg PO TID 03/15/22 10/27/24 History melatonin 5 mg capsule 5 mg PO .Bedtime as needed PRN 03/15/22 10/27/24 History polyethylene glycol 3350 17 g PO DAILY 03/15/22 10/27/24 History gram/dose oral powder aspirin 81 mg tablet,delayed 81 mg PO QDAY 03/18/22 10/27/24 History release folic acid-vit B6-vit B12 2.5 1 tab PO QDAY 03/18/22 10/27/24 History mg-25 mg-2 mg tablet (Folbic) furosemide 20 mg tablet 20 mg PO QDAY 03/18/22 10/27/24 History amoxicillin 500 mg capsule 2,000 mg (4 x 500 mg) PO ONCE 04/16/23 10/27/24 Rx Dental Procedure #7 caps gabapentin 300 mg capsule 600 mg (2 x 300 mg) PO TID #540 10/25/23 10/27/24 Rx caps Adult Wheelchair #1 ea 10/29/23 10/27/24 Rx Adult Wheelchair #1 ea 10/29/23 10/27/24 Rx acetaminophen 500 mg tablet 1,000 mg PO Q6H PRN 10/29/23 10/27/24 History (Tylenol Extra Strength) nystatin 100,000 unit/gram topical 1 applic topical BID #30 grams 10/31/23 10/27/24 Rx cream valsartan 160 mg tablet 80 mg PO DAILY 12/10/23 10/27/24 History famotidine 40 mg tablet 20 mg (1/2 x 40 mg) PO DAILY #60 12/17/23 10/27/24 Rx tabs meloxicam 7.5 mg tablet 7.5 - 15 mg (1 - 2 x 7.5 mg) PO 01/22/24 10/27/24 Rx DAILY for pain #90 tabs trazodone 50 mg tablet 50 mg PO QHS PRN pain #90 tabs 07/27/24 10/27/24 Rx finasteride 5 mg tablet 5 mg PO DAILY #90 tabs 09/20/24 10/27/24 Rx omeprazole 20 mg capsule,delayed 40 mg (2 x 20 mg) PO BID #180 caps 09/20/24 10/27/24 Rx release pantoprazole 20 mg tablet,delayed 20 mg PO BID #90 tabs 10/27/24 10/27/24 Rx release sulfamethoxazole 800 1 tab PO BID #10 tabs 12/14/24 Rx mg-trimethoprim 160 mg tablet (Bactrim DS) Allergies Allergy/AdvReac Type Severity Reaction Status Date / Time morphine Allergy Verified 12/19/24 17:05 tetanus immune globulin Allergy Verified 12/19/24 17:05 Exam Narrative: Exam Narrative: He is alert and appears in no distress. He gives his own history corroborated by his . Head is normal without evidence of trauma. Eyes normal. Extraocular movements are full. Visual brown intact. Oropharynx with small airway. Neck is supple without mass or adenopathy or tenderness. Respirations are clear to auscultation. Cardiovascular: S1, S2, irregularly irregular rhythm. Abdomen: Bowel sounds active. Abdomen is soft without tenderness or mass. On inspection hip appears to be normal. He has does not tolerate any motion of his right hip. He has intact sensation and pulses in his feet bilaterally. Feet are warm to touch. He moves upper extremities normally bilaterally. Const: Vital Signs, click to edit/add: Vital Signs - 24 hr 12/19/24 17:06 12/19/24 17:06 12/19/24 17:07 Temperature 99.2 F Pulse Rate 59 L Pulse Rate [Pulse Oximeter] 61 Respiratory Rate 16 17 Blood Pressure Blood Pressure [Le ft Arm] Blood Pressure [Ri ght Upper Arm] 104/60 104/60 Pulse Oximetry 96 92 Oxygen Delivery Me thod Room Air 12/19/24 17:15 12/19/24 17:20 12/19/24 17:30 Temperature Pulse Rate 73 Pulse Rate [Pulse Oximeter] Respiratory Rate 23 21 23 Blood Pressure 82/55 L Blood Pressure [Le ft Arm] Blood Pressure [Ri ght Upper Arm] Pulse Oximetry 93 Oxygen Delivery Me thod 12/19/24 17:45 12/19/24 18:40 12/19/24 18:45 Temperature Pulse Rate Pulse Rate [Pulse Oximeter] Respiratory Rate 14 25 H 17 Blood Pressure Blood Pressure [Le ft Arm] Blood Pressure [Ri ght Upper Arm] Pulse Oximetry Oxygen Delivery Me thod 12/19/24 19:00 12/19/24 19:18 12/19/24 20:11 Temperature 98.2 F Pulse Rate 66 Pulse Rate [Pulse Oximeter] 66 79 Respiratory Rate 20 18 18 Blood Pressure Blood Pressure [Le ft Arm] 152/84 H Blood Pressure [Ri ght Upper Arm] 158/88 H Pulse Oximetry 97 95 95 Oxygen Delivery Me thod Room Air Room Air Documenting provider has reviewed patient's vital signs: yes Hospitalist - H&P: Result Labs Labs: Short CBC 12/19/24 Range/Units 17:20 WBC 7.16 (4.50-11.00) K/uL Hgb 11.1 L (13.5-17.5) gm/dL Hct 33.7 L (37.0-53.0) % Plt Count 205 (140-440) K/uL BMP 12/19/24 17:20 Sodium 134 L Potassium 4.6 Chloride 106 Carbon Dioxide 24 BUN 28 Creatinine 1.2 Glucose 104 Calcium 8.8 Liver Function 12/19/24 Range/Units 17:20 Total Bilirubin 0.7 (0.1-1.5) mg/dL AST 30 (12-35) U/L ALT 8 (4-50) U/L Alkaline Phosphatase 50 (40-150) U/L Albumin 3.7 (3.3-5.0) g/dL Urine 12/19/24 Range/Units 17:20 Urine Color Jasmin A (Yellow) Urine Appearance Clear (Clear) Urine pH 6.0 (5.0-8.5) Ur Specific Soldier 1.025 (1.000-1.030) Urine Protein 2+ A (Negative) Urine Glucose (UA) Negative (Negative) ECG Attestation: I personally reviewed and interpreted this ECG as follows: (AFib with slow ventricular response of 52. Right bundle branch block.) ECG interpretation date: 12/19/[address] scan - head: Radiologist's impression: INDICATION: Fall. TECHNIQUE: Noncontrast CT of the head with multiplanar reconstruction utilizing bone and soft tissue algorithms. COMPARISON: None available. FINDINGS: No acute intracranial hemorrhage. The almeida-white matter interface is preserved. Mild diffuse parenchymal volume loss. The ventricles are proportional to the sulci. No abnormal extra-axial fluid collection is identified. No calvarial fracture. Unremarkable orbits. The paranasal sinuses and mastoid air cells are clear. IMPRESSION: No acute intracranial abnormality. Chest x-ray: Radiologist's impression: INDICATION: Fall, pain. TECHNIQUE: Chest 1 view. COMPARISON: None. FINDINGS/IMPRESSION: Cardiovascular and mediastinum: Prominent cardiac silhouette despite portable technique. Unremarkable thoracic aorta. Lungs and pleural spaces: Elevated right hemidiaphragm with adjacent passive atelectasis. No focal consolidation, pleural effusion, or pneumothorax. Bones and soft tissues: No definite displaced rib fracture. High-riding left humeral head, compatible with age-indeterminate complete rotator cuff tear. Right shoulder arthroplasty. Possible old right clavicle fracture. CT cervical spine: Radiologist's impression: Indication: Fall. Technique: Noncontrast CT of the cervical spine with multiplanar reconstruction. Comparison: None available. Findings: No acute fracture or traumatic subluxation. 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 No lytic or blastic lesion. Unremarkable prevertebral soft tissues. Atherosclerotic calcification at the carotid bifurcations. At least moderate spinal canal stenosis at C3-C4 as a result of the anterolisthesis. Multilevel neural foraminal narrowing, moderate-severe bilaterally at C3-C4, on the right at C4-C5, and on the left at C6-C7. Impression: 1. No acute fracture or traumatic subluxation. 2. 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 3. At least moderate spinal canal stenosis at C3-C4 as a result of the anterolisthesis. MR cervical spine may provide further characterization. Right Hip radiograph: Radiologist's impression: INDICATION: Fall, right hip pain COMPARISON: None. TECHNIQUE: One-view AP pelvis, AP right hip, cross-table lateral right hip FINDINGS: There is an acute mildly impacted right femoral neck fracture. No other fracture. Right hip joint space is moderately narrowed without significant subchondral sclerosis or cystic formation. There is a left hip arthroplasty that is partially seen in the field of view. No focal bone lesions. Normal bone mineralization. Atherosclerotic vascular calcifications. Surgical clips in the scrotum. IMPRESSION: Mildly impacted right femoral neck fracture.
[2024-12-19] MEDS: ACETAMINOPHEN 500 MG TABLET 1000 MG PO (21:12)
[2024-12-19] MEDS: GABAPENTIN 300 MG CAPSULE 600 MG PO (21:12)
[2024-12-19] MEDS: FAMOTIDINE 20 MG TABLET PO (21:13)
[2024-12-19] MEDS: OMEPRAZOLE 20 MG CAPSULE DR PO (21:13)
[2024-12-19] MEDS: SODIUM CHLORIDE 0.9 % (FLUSH) 10 ML SYRINGE 5 ML IVF (21:15)
[2024-12-19] MEDS: LACTATED RINGERS 1000 ML 1,000 ML 500 ML IV (21:17)
[2024-12-19] MEDS: TRAZODONE HCL 50 MG TABLET 100 MG PO (21:45)
[2024-12-20] VITALS (28 sets, daily range): BP systolic 79–158; BP diastolic 49–143; PULSE 55–80; RESP 10–18; TEMP 36.3–37.1; O2SAT 89–100
[2024-12-20] MEDS: LACTATED RINGERS 1000 ML 1,000 ML 75 ML IV ×3 (00:04→15:19)
[2024-12-20 06:11] LABS: Hematocrit 35.7 % (37.0-53.0); Hemoglobin* 11.9 gm/dL (13.5-17.5); Immature Granulocytes Abs Auto 0.02 K/uL (0.00-0.30); Immature Granulocytes Pct Auto 0.3 %; Mean Corpuscular HGB Conc 33 gm/dL (32-36); Mean Corpuscular Hemoglobin 31 pg (26-34); Mean Corpuscular Volume 93 fL (80-100); RDW Coefficient of Variation % 15.7 % (11.5-15.5); Red Blood Count 3.86 m/uL (4.30-5.90); White Blood Count* 7.90 K/uL (4.50-11.00)
[2024-12-20 06:12] LABS: Lymphocytes Absolute Auto 1.10 K/uL (0.90-2.90); Slide Review Reflex No
[2024-12-20 06:20] LABS: Chloride* 106 mmol/L (96-114); Sodium* 135 mmol/L (135-149)
[2024-12-20 06:21] LABS: Potassium* 4.2 mmol/L (3.6-5.1)
[2024-12-20 06:24] LABS: Anion Gap 5 mEq/L (7-15); Blood Urea Nitrogen* 20 mg/dL (7-30); Calcium* 8.8 mg/dL (8.4-10.6); Carbon Dioxide* 24 mmol/L (20-32); Creatinine* 0.9 mg/dL (0.5-1.5); Est. Creatinine Clearance* 65.55; Estimated Glomerular Filt Rate 91 ml/min; Glucose* 99 mg/dL (60-115)
[2024-12-20] MEDS: CARBIDOPA-LEVODOPA 25-100 TABLET 2.5 TAB PO ×3 (06:44→17:58)
--- NOTE | 2024-12-20 07:08 | PC.NURSE ---
[id number]: Pt pleasant, alert and oriented to self. Pt had some periods of confusion and disorientation, at bedside and was able to assist in reorientation. VSS. Pt stated some pain, prn dilaudid provided, and pt stated improvement. Repositioned throughout the shift. Rader cath patent and draining. NPO at 0000. Right arm restricted. Pt in bed, appears to be resting, call light within reach.? ?
[2024-12-20] MEDS: OMEPRAZOLE 20 MG CAPSULE DR PO ×2 (08:46→21:26)
[2024-12-20] MEDS: FINASTERIDE 5 MG TABLET PO (08:46)
[2024-12-20] MEDS: ACETAMINOPHEN 500 MG TABLET 1000 MG PO ×2 (08:47→21:26)
[2024-12-20] MEDS: GABAPENTIN 300 MG CAPSULE 600 MG PO ×2 (08:47→21:25)
[2024-12-20] MEDS: SODIUM CHLORIDE 0.9 % (FLUSH) 10 ML SYRINGE 5 ML IVF (08:48)
[2024-12-20] MEDS: DIGOXIN 125 MCG TABLET PO (09:16)
--- NOTE | 2024-12-20 11:53 | PM.ORCN ---
History of Present Illness HPI Date Seen: 12/20/24 Chief complaint: fall Narrative: Jose Daniel Burgos is a pleasant 73 year old male with advanced Parkinson's admitted to the hospital after a fall at home with right hip injury 12/19/2024. Patient lives independently with his . She is a retired physical therapist. She normally provides standby assistance when he ambulates. On 12/19/2024 she left the house briefly to get groceries and when she returned she found him on the floor. He denies loss of consciousness. He denies hitting his head. Other than hip pain he denies any other injuries or concerns today. Prior to the fall he was feeling fine. He was on an antibiotic for UTI for the last 5 days. His last dose was this morning. He has persistent atrial fibrillation/atrial flutter. Rate control is with digoxin. He is not on anticoagulation due to fall risk. 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 [facility] Medical History (Updated 12/20/24 @ 12:00 by Gary Ricci MD) Discharge planning issues ?Z75.8 - Other problems related to medical facilities and other health care (ICD-10) Anticoagulation management encounter ?Z51.81 - Encounter for therapeutic drug level monitoring (ICD-10) ?Z79.01 - [facility] (current) use of anticoagulants (ICD-10) Obstructive sleep apnea ?G47.33 - Obstructive sleep apnea (adult) (pediatric) (ICD-10) Delirium ?R41.0 - Disorientation, unspecified (ICD-10) Breast mass, right ?N63.10 - Unspecified lump in the right breast, unspecified quadrant (ICD-10) BPH (benign prostatic hyperplasia) ?N40.0 - Benign prostatic hyperplasia without lower urinary tract symptoms (ICD-10) Dysarthria and anarthria ?R47.1 - Dysarthria and anarthria (ICD-10) Delirium due to known physiological condition ?F05 - Delirium due to known physiological condition (ICD-10) Urinary tract infection ?N39.0 - Urinary tract infection, site not specified (ICD-10) Polyosteoarthritis ?M15.9 - Polyosteoarthritis, unspecified (ICD-10) Benign prostatic hyperplasia with lower urinary tract symptoms ?N40.1 - Benign prostatic hyperplasia with lower urinary tract symptoms (ICD-10) History of falling ?Z91.81 - History of falling (ICD-10) Recurrent dislocation, right shoulder ?M24.411 - Recurrent dislocation, right shoulder (ICD-10) Acute posthemorrhagic anemia ?D62 - Acute posthemorrhagic anemia (ICD-10) Ataxia ?R27.0 - Ataxia, unspecified (ICD-10) Rash ?R21 - Rash and other nonspecific skin eruption (ICD-10) Insomnia ?G47.00 - Insomnia, unspecified (ICD-10) Esophageal dysphagia ?R13.19 - Other dysphagia (ICD-10) Hypertension ?I10 - Essential (primary) hypertension (ICD-10) Parkinson's disease ?G20 - Parkinson's disease (ICD-10) Inguinal hernia ?K40.90 - Unilateral inguinal hernia, without obstruction or gangrene, not specified as recurrent (ICD-10) Atrial fibrillation ?I48.91 - Unspecified atrial fibrillation (ICD-10) Anterior shoulder dislocation ?S43.016A - Anterior dislocation of unspecified humerus, initial encounter (ICD-10) Pain ?R52 - Pain, unspecified (ICD-10) Surgical History History of shoulder surgery (11/06/23) ?Z98.890 - Other specified postprocedural states (ICD-10) S/P ORIF (open reduction internal fixation) fracture (09/14/23) ?Z98.890 - Other specified postprocedural states (ICD-10) ?Z87.81 - Personal history of (healed) traumatic fracture (ICD-10) History of reverse total replacement of right shoulder joint ?Z98.890 - Other specified postprocedural states (ICD-10) H/O hernia repair ?Z98.890 - Other specified postprocedural states (ICD-10) ?Z87.19 - Personal history of other diseases of the digestive system (ICD-10) Family History (Updated 12/19/24 @ 21:13 by Rickey Gomez MD) Father Coronary artery disease Atrial fibrillation Brother Coronary artery disease Atrial fibrillation Parkinsons disease Social History (Updated 12/19/24 @ 21:15 by Rickey Gomez MD) Narrative: and lives independently in a home with his Erin. His is a retired physical therapist. She is normally with him when he is up for standby assistance all the time. She is healthcare power of title attorney. Code status is full. He does not smoke. He does not drink alcohol What is your current living situation?: I presently have a place to live Problems where you live: no known problems Problems where you live details: none In the past 12 months, utilities in danger of being shut off: no In past 12 months, lack of transportation kept you from medical appts, meetings, work, or getting things needed for daily living: no In the past 12 mos, have been you worried that your food would run out before you had money to buy more?: never true In the past 12 mos, the food you bought just didn't last and you didn't have money to buy more?: never true Smoking Status: Former smoker What tobacco products do you use: cigarettes Smoking quit date/years: <= 15 years ago and cigars Do you use any of these nicotine containing products: None Second hand tobacco smoke exposure: No How often do you have a drink containing alcohol: monthly or less Alcohol type: beer How many standard drinks containing alcohol do you have on a typical day: 1 or 2 How often do you have six or more drinks on one occasion: Never AUDIT-C Alcohol total score: 1 Non-prescribed substance use: denies use How often does anyone, including family, friends and others, physically hurt you: never How often does anyone, including family, friends and others, insult or talk down to you: never How often does anyone, including family, friends and others, threaten you with harm: never How often does anyone, including family, friends and others, scream or curse at you: never service: No Meds Home Medications and Allergies Home Medications ?Medication ?Instructions ?Recorded ?Confirmed ?Type carbidopa 25 mg-levodopa 100 mg 1 tab PO QID 03/15/22 12/20/24 History tablet cholecalciferol (vitamin D3) 50 50 mcg PO DAILY 03/15/22 10/27/24 History mcg (2,000 unit) tablet digoxin 125 mcg (0.125 mg) tablet 0.125 mg PO DAILY 03/15/22 10/27/24 History entacapone 200 mg tablet 200 mg PO QID 03/15/22 12/20/24 History melatonin 5 mg capsule 5 mg PO .Bedtime as needed PRN 03/15/22 10/27/24 History polyethylene glycol 3350 17 17 g PO DAILY 03/15/22 12/20/24 History gram/dose oral powder aspirin 81 mg tablet,delayed 81 mg PO QDAY 03/18/22 10/27/24 History release folic acid-vit B6-vit B12 2.5 1 tab PO QDAY 03/18/22 10/27/24 History mg-25 mg-2 mg tablet (Folbic) furosemide 20 mg tablet 20 mg PO QDAY 03/18/22 10/27/24 History amoxicillin 500 mg capsule 2,000 mg (4 x 500 mg) PO ONCE 04/16/23 10/27/24 Rx Dental Procedure #7 caps gabapentin 300 mg capsule 600 mg (2 x 300 mg) PO TID #540 10/25/23 12/20/24 Rx caps Adult Wheelchair #1 ea 10/29/23 10/27/24 Rx Adult Wheelchair #1 ea 10/29/23 10/27/24 Rx acetaminophen 500 mg tablet 1,000 mg PO Q6H PRN 10/29/23 10/27/24 History (Tylenol Extra Strength) nystatin 100,000 unit/gram topical 1 applic topical BID #30 grams 10/31/23 12/20/24 Rx cream valsartan 160 mg tablet 80 mg PO DAILY 12/10/23 10/27/24 History famotidine 40 mg tablet 20 mg (1/2 x 40 mg) PO DAILY #60 12/17/23 10/27/24 Rx tabs meloxicam 7.5 mg tablet 7.5 - 15 mg (1 - 2 x 7.5 mg) PO 01/22/24 12/20/24 Rx DAILY for pain #90 tabs trazodone 50 mg tablet 50 mg PO QHS PRN pain #90 tabs 07/27/24 10/27/24 Rx finasteride 5 mg tablet 5 mg PO DAILY #90 tabs 09/20/24 10/27/24 Rx pantoprazole 20 mg tablet,delayed 20 mg PO BID #90 tabs 10/27/24 12/20/24 Rx release sulfamethoxazole 800 1 tab PO BID #10 tabs 12/14/24 Rx mg-trimethoprim 160 mg tablet (Bactrim DS) Allergies Allergy/AdvReac Type Severity Reaction Status Date / Time morphine Allergy Verified 12/19/24 17:05 tetanus immune globulin Allergy Verified 12/19/24 17:05 Ortho Exam Narrative Exam Narrative: He is alert and oriented x3. He is cooperative with exam. Lying supine in the hospital bed. His is in the room with us and augments the history. Right hip exam shows no erythema, induration, or other cutaneous changes. He does have pain about the right hip with any hip or knee range of motion. Superficial and deep peroneal as well as plantar distribution intact to sensory light touch and motor function. Palpable DP and PT pulse. Currently he cannot perform an active straight leg raise, but it is difficult to know if this is related to the patella nonunion on the right side or the hip fracture pain. Beyond that, his right shoulder shows anterior deltopectoral type of scar that is well healed, but there is a clear void in the soft tissues and no palpable proximal humerus consistent with his right shoulder disarticulation from approximately 11/2023 ([facility]). Const Vital Signs, click to edit/add: Vital Signs - 24 hr 12/19/24 17:06 12/19/24 17:06 12/19/24 17:07 Temperature 99.2 F Pulse Rate 59 L Pulse Rate [Pulse Oximeter] 61 Respiratory Rate 16 17 Blood Pressure Blood Pressure [Left Arm] Blood Pressure [Right Upper Arm] 104/60 104/60 Pulse Oximetry 96 92 Oxygen Delivery Method Room Air 12/19/24 17:15 12/19/24 17:20 12/19/24 17:30 Temperature Pulse Rate 73 Pulse Rate [Pulse Oximeter] Respiratory Rate 23 21 23 Blood Pressure 82/55 L Blood Pressure [Left Arm] Blood Pressure [Right Upper Arm] Pulse Oximetry 93 Oxygen Delivery Method 12/19/24 17:45 12/19/24 18:40 12/19/24 18:45 Temperature Pulse Rate Pulse Rate [Pulse Oximeter] Respiratory Rate 14 25 H 17 Blood Pressure Blood Pressure [Left Arm] Blood Pressure [Right Upper Arm] Pulse Oximetry Oxygen Delivery Method 12/19/24 19:00 12/19/24 19:18 12/19/24 20:11 Temperature 98.2 F Pulse Rate 66 Pulse Rate [Pulse Oximeter] 66 79 Respiratory Rate 20 18 18 Blood Pressure Blood Pressure [Left Arm] 152/84 H Blood Pressure [Right Upper Arm] 158/88 H Pulse Oximetry 97 95 95 Oxygen Delivery Method Room Air Room Air 12/19/24 20:11 12/19/24 23:00 12/19/24 23:00 Temperature 98.3 F Pulse Rate Pulse Rate [Pulse Oximeter] 71 71 Respiratory Rate 18 16 16 Blood Pressure Blood Pressure [Left Arm] 102/62 Blood Pressure [Right Upper Arm] Pulse Oximetry 95 91 Oxygen Delivery Method Room Air Room Air 12/20/24 00:30 12/20/24 03:00 12/20/24 07:00 Temperature 98.2 F 98.7 F Pulse Rate 56 L Pulse Rate [Pulse Oximeter] 80 61 Respiratory Rate 16 16 Blood Pressure Blood Pressure [Left Arm] 147/81 H 135/88 Blood Pressure [Right Upper Arm] Pulse Oximetry 91 94 Oxygen Delivery Method Room Air Room Air 12/20/24 08:13 12/20/24 09:16 12/20/24 11:00 Temperature 97.9 F Pulse Rate 55 L 58 L Pulse Rate [Pulse Oximeter] 56 L Respiratory Rate 16 Blood Pressure Blood Pressure [Left Arm] 133/79 Blood Pressure [Right Upper Arm] Pulse Oximetry 95 Oxygen Delivery Method Room Air Results Labs Labs: Laboratory Results - last 48 hr 12/19/24 12/19/24 12/20/24 17:20 21:25 05:35 WBC 7.16 7.90 RBC 3.64 L 3.86 L Hgb 11.1 L 11.9 L Hct 33.7 L 35.7 L MCV 93 93 MCH 31 31 MCHC 33 33 RDW Coeff of Evan 15.9 H 15.7 H Plt Count 205 194 Neut % (Auto) 76.9 H 71.2 Lymph % (Auto) 11.5 L 13.7 L [place] % (Auto) 9.1 12.0 H Eos % (Auto) 1.3 2.0 Baso % (Auto) 0.8 0.8 Neut # (Auto) 5.50 5.63 Lymph # (Auto) 0.80 L 1.10 Walton # (Auto) 0.70 0.90 Eos # (Auto) 0.09 0.16 Baso # (Auto) 0.06 0.06 Abs Immat Gran (auto) 0.03 0.02 Imm/Tot Granulo (auto) 0.4 0.3 Sodium 134 L 135 Potassium 4.6 4.2 Chloride 106 106 Carbon Dioxide 24 24 Anion Gap 4 L 5 L BUN 28 20 Creatinine 1.2 0.9 Estimated Creat Clear 54.63 65.55 Estimated GFR 65 91 Glucose 104 99 Lactate 1.8 Calcium 8.8 8.8 Total Bilirubin 0.7 AST 30 ALT 8 Alkaline Phosphatase 50 Troponin I < 0.01 Total Protein 6.2 Albumin 3.7 Urine Color Jasmin A Urine Appearance Clear Urine pH 6.0 Ur Specific [place] 1.025 Urine Protein 2+ A Urine Glucose (UA) Negative Urine Ketones Trace A Urine Blood 3+ A Urine Nitrite Negative Urine Bilirubin Negative Urine Urobilinogen 1.0 Ur Leukocyte Esterase 1+ A Urine RBC 10-25 A Urine WBC 5-10 A Ur Squamous Epith Cells Few Urine Bacteria Few A Digoxin 0.9 Lab Acknowledgement Test Added Diagnostic results Additional Comments: AP pelvis, AP and cross-table lateral radiographic views of the right hip from [facility] dated 12/19/2024 for ordered by a different provider and reviewed by me. This demonstrates a right proximal femoral neck fracture with displacement of the head relative to the shaft. Shortening to the limb, varus angulation, and external rotation to the femoral shaft. Of note, contralateral left GURJIT implants in acceptable position are noted. Single AP view of the chest also from [facility] dated 12/19/2024 was ordered by a different provider and reviewed by me. From an orthopedic standpoint this shows the right glenoid base plate and glenosphere intact. Looking back at previous right shoulder images from 10/15/2023 shows proximal humeral replacement from the mid humeral shaft with this stem cemented into the distal humerus. This is dislocated on that 10/15/2023 radiograph. Finally, chondral left shoulder shows severe cuff tear arthropathy. Assessment and Plan Assessment and plan (1) Fracture of hip, right, closed: Status: Acute Total time spent: Total time spent is greater than 50% in coordination of care (as documented) at patient's floor/unit and/or counseling patient: (2) Parkinson's disease: Problem comment: Quite disabling. Status: Acute Total time spent: Total time spent is greater than 50% in coordination of care (as documented) at patient's floor/unit and/or counseling patient: (3) Other mechanical complication of internal shoulder joint prosthesis: Problem comment: Multiply operated right shoulder with failed and permanently dislocated reverse shoulder arthroplasty. Now chronically dislocated. Able to hold onto a walker but not put weight on walker with right arm. Likely this will make ambulation with a walker and a new hip fracture very difficult. Status: Acute Total time spent: Total time spent is greater than 50% in coordination of care (as documented) at patient's floor/unit and/or counseling patient: (4) Delirium: Problem comment: According to the patient's he had a couple days of delirium following his 2 most recent hospitalizations for surgery. He is high risk for recurrent problems with delirium Status: Acute Total time spent: Total time spent is greater than 50% in coordination of care (as documented) at patient's floor/unit and/or counseling patient: (5) Anticoagulation management encounter: Problem comment: Patient has chronic AFib. Chart indicates no ongoing anticoagulation for AFib due to fall risk. Now patient also has hip fracture with significant VTE risk. Consider anticoagulation postop for 1 month while getting rehab. Status: Acute Total time spent: Total time spent is greater than 50% in coordination of care (as documented) at patient's floor/unit and/or counseling patient: (6) BPH (benign prostatic hyperplasia): Problem comment: Place Rader. Remove Rader once he has recovered from surgery and began to eat and drink. Check bladder scan postoperatively when Rader is out Status: Acute Total time spent: Total time spent is greater than 50% in coordination of care (as documented) at patient's floor/unit and/or counseling patient: (7) Pain: Problem comment: Patient has chronic pain. This is likely going to be difficult to manage postoperatively with risk for delirium. Status: Acute Total time spent: Total time spent is greater than 50% in coordination of care (as documented) at patient's floor/unit and/or counseling patient: (8) Left rotator cuff tear arthropathy: Status: Chronic Total time spent: Total time spent is greater than 50% in coordination of care (as documented) at patient's floor/unit and/or counseling patient: (9) Atrial fibrillation: Problem comment: On digoxin for rate control. No anticoagulation due to fall risk. Continue to monitor. If too bradycardic may be needs a reduction in digoxin dose Consider anticoagulation postoperatively for 1 month due to combined risk of VTE and cardioembolic stroke from AFib Status: Acute Total time spent: Total time spent is greater than 50% in coordination of care (as documented) at patient's floor/unit and/or counseling patient: (10) Insomnia: Status: Acute Total time spent: Total time spent is greater than 50% in coordination of care (as documented) at patient's floor/unit and/or counseling patient: (11) Hypertension: Problem comment: Hold home blood pressure medications. Patient is at risk for orthostatic hypotension, especially with perioperative blood loss from hip fracture Status: Acute Total time spent: Total time spent is greater than 50% in coordination of care (as documented) at patient's floor/unit and/or counseling patient: (12) Discharge planning issues: Problem comment: Will need [facility] facility for rehab when he has recovered from this surgery Status: Acute Total time spent: Total time spent is greater than 50% in coordination of care (as documented) at patient's floor/unit and/or counseling patient: (13) Closed fracture of right patella with nonunion: Status: Acute Plan Had a good discussion today with the patient and his . I helped him understand his current plight. This right femoral neck fracture that is displaced will not likely heal spontaneously. In my opinion, I do think he would benefit from surgical intervention. This would be for right hip bipolar hemiarthroplasty. However, he is a high risk candidate. He is high risk given his right patella nonunion from 09/2023. In addition, the right proximal humerus disarticulation is noteworthy in good make it difficult for him to use a walker postoperatively. Moreover, we discussed given his other medical comorbidities that he has numerous systemic risks as well following this procedure. He and his state understanding. This includes local risks (e.g. Infection, wound healing issues, aseptic loosening, instability, fracture) as well as systemic risks (e.g. VTE, [place], stroke). I have coordinate care with hospitalist team and the anesthesia team. Postoperatively, I would anticipate he will need at least 1 if not multiple more nights here in the hospital. PT will continue to work with him. He also has a high risk for delirium postoperatively.
--- NOTE | 2024-12-20 13:15 | CRLHL7_ITS ---
For Patients: As a result of the Cures Act, medical imaging exams and procedure reports are released immediately into your electronic medical record. You may view this report before your referring provider. If you have questions, please contact your health care provider. Indication: Hip replacement surgery Technique: AP hip fluoroscopic image. Fluoroscopy time 16.9 seconds. Findings/Impression: Hardware from a right total hip arthroplasty is in satisfactory position. Dictated by Jose Daniel Pace MD @ 12/21/2024 8:23:55 AM (Electronically Signed)
--- NOTE | 2024-12-20 13:45 | W.PM.NB ---
Nerve Block Nerve Block Time Seen by Provider: 13:30 Date Seen: 12/20/24 Type of block requested by surgeon for post-operative analgesia: ATTILA/LFCN Side: right Time out performed: Yes Verification of patient name: Yes Verification of date of : Yes Site marking: site marked Name of person performing procedure: Julito Continuous monitoring Was continuous monitoring of O2 sat, B/P, property assessment monitor, recorded every 15 minutes?: Yes Procedure Checklist: sterile prep, needles and gloves Ultrasound guided. Images saved: Yes Medications given in 5ml increments after negative aspiration: Ropivicaine %: 0.5 mL: 30 Needle gauge: 20 Precedex (mcg): 25 Patient tolerated procedure well: Yes Additional comments: Needle noted below psoas tendon needle noted adjacent to LFCN Block Charges Block Charge (with Pro Fee): Other Periph Nerve Block Use of Ultrasound Machine for Block: Yes- US Guidance/pain block
--- NOTE | 2024-12-20 13:46 | P.IMPN_ITS ---
Assessment and Plan Assessment and plan (1) Fracture of hip, right, closed: Problem comment: To OR today, 12/20/[address] Esteves PT/OT postoperatively Likely require SNF placement Status: Acute (2) Parkinson's disease: Problem comment: Quite disabling. 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 Able to hold onto a walker but not put weight on walker with right arm. Likely this will make ambulation with a walker and a new hip fracture very difficult. Likely require SNF placement Status: Acute (4) Delirium: Problem comment: reports sundowning at home According to the patient's he had a couple days of delirium following his 2 most recent hospitalizations for surgery. He is high risk for recurrent problems with delirium. Monitor Status: Acute (5) Atrial fibrillation: Problem comment: On digoxin for rate control. No anticoagulation due to fall risk. Continue to monitor. If too bradycardic may be needs a reduction in digoxin dose Consider anticoagulation postoperatively for 1 month due to combined risk of VTE and cardioembolic stroke from AFib Status: Acute (6) Anticoagulation management encounter: Problem comment: Patient has chronic AFib. Chart indicates no ongoing anticoagulation for AFib due to fall risk. Now patient also has hip fracture with significant VTE risk. Consider anticoagulation postop for 1 month while getting rehab. Status: Acute (7) BPH (benign prostatic hyperplasia): Problem comment: Place Rader. Remove Rader once he has recovered from surgery and began to eat and drink. Check bladder scan postoperatively when Rader is out Status: Acute (8) Pain: Problem comment: Patient has chronic pain. This is likely going to be difficult to manage postoperatively with risk for delirium. Status: Acute (9) Insomnia: Problem comment: Following surgery, encourage sleep wake cycle. Melatonin at bedtime Status: Acute (10) Hypertension: Problem comment: Hold home blood pressure medications. Patient is at risk for orthostatic hypotension, especially with perioperative blood loss from hip fracture Monitor, resume home meds when able Status: Acute (11) Discharge planning issues: Problem comment: Will need nursing home facility for rehab when he has recovered from this surgery Status: Acute Total Time Spent Total Time Spent: Today I spent 45 minutes seeing the patient, reviewing Expanse and EPIC note s/diagnostics, discussing the care plan with our care time that includes social work, PT/OT, pharmacy, RT, nursing home and documenting my impressions and plan in the medical record. Subjective Date Seen: 12/20/24 Interval history: Patient is seen lying in bed this morning. is at bedside. provides all of communication. Patient has had dilaudid and per her report appears to be more comfortable, less restless. Remains afebrile. Vitally stable. Currently NPO. Scheduled for OR around 1:00 p.m. today. Exam Narrative: Exam Narrative: PHYSICAL EXAM General: Alert, Not currently communicative, mildly restless HEENT: Normocephalic, atraumatic, sclera white, EOMI Cardiovascular: IRRR, S1S2. No pitting edema Pulmonary: CTA bilaterally without rhonchi, rales, expiratory wheezes. No dyspnea on room air Abdominal: Soft, nondistended, NTTP Neurological: Alert, answering questions appropriately, cranial nerves intact, no focal findings Extremities: RLE mildly rotated, warm to touch. Neurovascularly intact. RUE shape of shoulder hardware can be seen tenting the skin ( reports this is normal) Skin: Warm, dry. Const: Vital Signs, click to edit/add: Vital Signs - 24 hr 12/19/24 17:06 12/19/24 17:06 12/19/24 17:07 Temperature 99.2 F Pulse Rate 59 L Pulse Rate [Pulse Oximeter] 61 Respiratory Rate 16 17 Blood Pressure Blood Pressure [Le ft Arm] Blood Pressure [Ri ght Upper Arm] 104/60 104/60 Pulse Oximetry 96 92 Oxygen Delivery Me thod Room Air 12/19/24 17:15 12/19/24 17:20 12/19/24 17:30 Temperature Pulse Rate 73 Pulse Rate [Pulse Oximeter] Respiratory Rate 23 21 23 Blood Pressure 82/55 L Blood Pressure [Le ft Arm] Blood Pressure [Ri ght Upper Arm] Pulse Oximetry 93 Oxygen Delivery Me thod 12/19/24 17:45 12/19/24 18:40 12/19/24 18:45 Temperature Pulse Rate Pulse Rate [Pulse Oximeter] Respiratory Rate 14 25 H 17 Blood Pressure Blood Pressure [Le ft Arm] Blood Pressure [Ri ght Upper Arm] Pulse Oximetry Oxygen Delivery Ms thod 12/19/24 19:00 12/19/24 19:18 12/19/24 20:11 Temperature 98.2 F Pulse Rate 66 Pulse Rate [Pulse Oximeter] 66 79 Respiratory Rate 20 18 18 Blood Pressure Blood Pressure [Le ft Arm] 152/84 H Blood Pressure [Ri ght Upper Arm] 158/88 H Pulse Oximetry 97 95 95 Oxygen Delivery Ms thod Room Air Room Air 12/19/24 20:11 12/19/24 23:00 12/19/24 23:00 Temperature 98.3 F Pulse Rate Pulse Rate [Pulse Oximeter] 71 71 Respiratory Rate 18 16 16 Blood Pressure Blood Pressure [Le ft Arm] 102/62 Blood Pressure [Ri ght Upper Arm] Pulse Oximetry 95 91 [facility] Room Air 12/20/24 00:30 12/20/24 03:00 12/20/24 07:00 Temperature 98.2 F 98.7 F Pulse Rate 56 L Pulse Rate [Pulse Oximeter] 80 61 Respiratory Rate 16 16 Blood Pressure Blood Pressure [Le ft Arm] 147/81 H 135/88 Blood Pressure [Ri ght Upper Arm] Pulse Oximetry 91 94 [facility] Room Air 12/20/24 08:13 12/20/24 09:16 12/20/24 11:00 Temperature 97.9 F Pulse Rate 55 L 58 L Pulse Rate [Pulse Oximeter] 56 L Respiratory Rate 16 Blood Pressure Blood Pressure [Le ft Arm] 133/79 Blood Pressure [Ri ght Upper Arm] Pulse Oximetry 95 [facility]xygen [facility] Room Air Labs Labs: Laboratory Results - last 24 hr 12/19/24 12/19/24 12/20/24 17:20 21:25 05:35 WBC 7.16 7.90 RBC 3.64 L 3.86 L Hgb 11.1 L 11.9 L Hct 33.7 L 35.7 L MCV 93 93 MCH 31 31 MCHC 33 33 RDW Coeff of Evan 15.9 H 15.7 H Plt Count 205 194 Neut % (Auto) 76.9 H 71.2 Lymph % (Auto) 11.5 L 13.7 L [place] % (Auto) 9.1 12.0 H Eos % (Auto) 1.3 2.0 Baso % (Auto) 0.8 0.8 Neut # (Auto) 5.50 5.63 Lymph # (Auto) 0.80 L 1.10 [place] # (Auto) 0.70 0.90 Eos # (Auto) 0.09 0.16 Baso # (Auto) 0.06 0.06 Abs Immat Gran (auto) 0.03 0.02 Imm/Tot Granulo (auto) 0.4 0.3 Sodium 134 L 135 Potassium 4.6 4.2 Chloride 106 106 Carbon Dioxide 24 24 Anion Gap 4 L 5 L BUN 28 20 Creatinine 1.2 0.9 Estimated Creat Clear 54.63 65.55 Estimated GFR 65 91 Glucose 104 99 Lactate 1.8 Calcium 8.8 8.8 Total Bilirubin 0.7 AST 30 ALT 8 Alkaline Phosphatase 50 Troponin I < 0.01 Total Protein 6.2 Albumin 3.7 Urine Color Jasmin A Urine Appearance Clear Urine pH 6.0 Ur Specific [place] 1.025 Urine Protein 2+ A Urine Glucose (UA) Negative Urine Ketones Trace A Urine Blood 3+ A Urine Nitrite Negative Urine Bilirubin Negative Urine Urobilinogen 1.0 Ur Leukocyte Esterase 1+ A Urine RBC 10-25 A Urine WBC 5-10 A Ur Squamous Epith Cells Few Urine Bacteria Few A Digoxin 0.9 Lab Acknowledgement Test Added
--- NOTE | 2024-12-20 13:46 | P.ANES_ITS ---
Anesthesia Charges Start Date/Time Anesthesia Start Date: 12/20/24 Anesthesia Start Time: 13:14 Stop Date/Time Anesthesia Stop Date: 12/20/24 Anesthesia Stop Time: 15:58 Summary Extremes of Age - Over 70 or under 1: MDA Coding CPT Codes CPT Codes: ANESTH SURGERY OF FEMUR - 52535 ([id number]) P3 - PATIENT W/SEVERE SYS DISEASE, QK - CERTIFIED PEER SPECIALIST 2-4 CNCRNT ANES PROC, QX - PHARMACY SALES ASSISTANT SVC W/ MD MED DIRECTION Additional Codes: Summary - Extremes of Age - Over 70 or under 1: MDA ([id number])
--- NOTE | 2024-12-20 13:46 | W.ANESCHARGE ---
Anesthesia Charges Start Date/Time Anesthesia Start Date: 12/20/24 Anesthesia Start Time: 13:14 Stop Date/Time Anesthesia Stop Date: 12/20/24 Anesthesia Stop Time: 15:58 Summary Extremes of Age - Over 70 or under 1: MDA Coding CPT Codes CPT Codes: ANESTH SURGERY OF FEMUR - 15689 ([id number]) P3 - PATIENT W/SEVERE SYS DISEASE, QK - TEST ENG 2-4 CNCRNT ANES PROC, QX - CARBONATION EQUIPMENT TENDER SVC W/ MD MED DIRECTION Additional Codes: Summary - Extremes of Age - Over 70 or under 1: MDA ([id number])
[2024-12-20] MEDS: TRANEXAMIC ACID 100 MG/ML INJ 1000 MG IV (13:51)
--- NOTE | 2024-12-20 15:27 | PM.ORPRC ---
Procedure Note Date of procedure: 12/20/24 Procedure: PREOPERATIVE DIAGNOSIS: 1. Right femoral neck fracture, displaced POSTOPERATIVE DIAGNOSIS: 1. Right femoral neck fracture, displaced PROCEDURE: 1. Right hip bipolar hemiarthroplasty, anterior approach 2. Intraoperative fluoroscopy interpreted by Gary Ricci M.D. for intraoperative evaluation of hip hemiarthroplasty implant positioning and leg length/offset evaluation. Fluoroscopy time was 16.9 seconds. SURGEON: Gary Ricci MD. HIGH SCHOOL ADMISSIONS REPRESENTATIVE: David Pitts PA-C; HERMES Reyes - Of note, skilled assistants were critical for this case to aid in patient positioning, tissue retraction, limb manipulation/positioning, and closure. ANESTHESIA: Spinal anesthetic EBL: 400 ml IMPLANTS: DePuy J&J uncemented right hip bipolar hemiarthroplasty Femoral Actis high offset stem, size 10 Bipolar head with 28 mm inner diameter metal ball (+1.5) Polyethylene interface and 51 mm outer metal shell. COMPLICATIONS: None evident INDICATIONS: The patient is a pleasant 73-year-old male who initially sustained a right hip injury recently after a fall from a standing height falling onto the affected side. This resulted in a displaced femoral neck fracture. Given previous ambulatory status and current pain for the patient along with dysfunction, surgery is indicated for a hip hemiarthroplasty. FINDINGS: Displaced right femoral neck fracture. Well-preserved articular cartilage within the acetabulum. Hemarthrosis encountered upon entering the joint capsule. DESCRIPTION OF PROCEDURE: Following a thorough discussion of risks, benefits, and alternatives consent was obtained and the right hip was marked. The patient was brought to the operating room and placed supine on the operating table. Induction of anesthesia was undertaken. 2 g IV Ancef and 1 g tranexamic acid was administered within 1 hr of incision preoperatively. Proper time-out was performed identifying proper patient, site, procedure. The operative extremity was prepped and draped in the appropriate sterile fashion using ChloraPrep after the patient was positioned on the Ellerbe table with head in neutral alignment and all bony prominences well padded. A longitudinal incision was made starting approximately 1 cm distal to the ASIS, and 2-3 cm lateral. The incision was extended distally aiming toward the fibular head. Sharp incision through skin and bovie cautery through the subcutaneous tissue allowed identification of the TFL fascia. This was sharply divided, and the fascia bluntly released from the muscle fibers as we dissected medial. Upon coming to the medial border, we were able to retract the TFL laterally, and penetrated the deeper fascia and identify the crossing circumflex vessels. These were ligated/cauterized. The rectus was elevated from the capsule, and retractors placed laterally and medially along the femoral neck to help with visualization of the capsule. We then performed an inverted T capsulotomy. The capsule was tagged for later repair. Retractors were placed inside the capsule. The femoral neck was visualized after releasing medially down to the lesser trochanter, along the saddle laterally, and approaching the acetabulum. The femoral neck cut was freshened with a sagittal saw. The head was removed in a single piece, and sized. The acetabulum was inspected and found to be in excellent condition with healthy articular cartilage. Any remaining bony fracture fragments were removed. The ligamentum was excised. Attention was turned to the femoral preparation. The limb was extended, externally rotated, and adducted. The posteromedial capsule was released, as retractors were placed allowing excellent access to the proximal femur. Initially a box spring upholsterer was utilized, then a canal finder, followed by a rasp and sequentially larger broaches. We broached up to the size noted above and found it to have excellent rotational control. Various head/neck combinations were trialed with a goal of matching the contralateral limbs leg length and offset, as confirmed with intraoperative fluoroscopy, in addition to achieving appropriate stability. Trial implants were removed, the real femoral stem inserted, as was the appropriate head(s). After reducing, the leg was placed through range of motion and stability was confirmed in various directions and with toggle/traction of the femoral component. Closure of the capsule was performed with #1 PDS. Bleeding was confirmed to be controlled at this stage, and the TFL fascia was closed with #0 strata fix. Subcutaneous, and subcuticular closure was performed with 2-0 Stratafix and 4-0 Stratafix, respectively. Dressings were applied, and the patient was awoken from anesthesia and transferred the PACU in stable condition. Skilled assistants were critical for this case to aid in patient positioning, tissue retraction, acetabular and proximal femoral exposure, limb manipulation/positioning, dislocation/relocation, patient safety, and closure. PLAN: 1. Weight bear as tolerated operative extremity. 2. 23 hr perioperative antibiotics. 3. Ice. 4. PT/OT consults for ambulation assistance/mobility education. 5. Social work consult for discharge planning. 6. DVT prophylaxis with at SCDs and Xarelto x5 days followed by aspirin for a total of 1 month.
--- NOTE | 2024-12-20 16:04 | P.ANES_ITS ---
Anesthesia Charges Start Date/Time Anesthesia Start Date: 12/20/24 Anesthesia Start Time: 13:14 Stop Date/Time Anesthesia Stop Date: 12/20/24 Anesthesia Stop Time: 15:58 Summary Extremes of Age - Over 70 or under 1: ARMAMENT MECHANIC Coding CPT Codes CPT Codes: ANESTH SURGERY OF FEMUR - 83441 ([id number]) P3 - PATIENT W/SEVERE SYS DISEASE, QK - TRACTOR TECHNICIAN 2-4 CNCRNT ANES PROC, QX - ARMAMENT MECHANIC SVC W/ MD MED DIRECTION Additional Codes: Summary - Extremes of Age - Over 70 or under 1: ARMAMENT MECHANIC ([id number])
--- NOTE | 2024-12-20 16:04 | W.ANESCHARGE ---
Anesthesia Charges Start Date/Time Anesthesia Start Date: 12/20/24 Anesthesia Start Time: 13:14 Stop Date/Time Anesthesia Stop Date: 12/20/24 Anesthesia Stop Time: 15:58 Summary Extremes of Age - Over 70 or under 1: LOG PEELER Coding CPT Codes CPT Codes: ANESTH SURGERY OF FEMUR - 07518 ([id number]) P3 - PATIENT W/SEVERE SYS DISEASE, QK - GARMENT SEWER HAND 2-4 CNCRNT ANES PROC, QX - LOG PEELER SVC W/ MD MED DIRECTION Additional Codes: Summary - Extremes of Age - Over 70 or under 1: LOG PEELER ([id number])
--- NOTE | 2024-12-20 16:28 | CRLHL7_ITS ---
For Patients: As a result of the Cures Act, medical imaging exams and procedure reports are released immediately into your electronic medical record. You may view this report before your referring provider. If you have questions, please contact your health care provider. Indication: Postop right hip Technique: AP hip centered pelvis and lateral view right hip Findings/Impression: Hardware from a right bipolar hip arthroplasty is in satisfactory position. Bone alignment is normal. No sign of acute fracture. Postop changes are within normal limits. Dictated by Jose Daniel Pace MD @ 12/21/2024 8:24:29 AM (Electronically Signed)
--- NOTE | 2024-12-20 19:22 | PC.NURSE ---
End of shift [id number]: Pt underwent sx @ 1315 and returned @ 1650. LR @ 75. Radha busch in place. Pt oriented to self and situation. Pt noted to be experiencing delirium at the end of shift, reported that this was a common side effect of anesthesia. Pt remains VSS on RA. Denying pain at this time. Ice pack applied to op site, site remaining CDI. Pt tolerating sips/chips well. Rader is patent and draining. Pt appears resting watching television with call light in reach. at bedside.
[2024-12-20] MEDS: CEFAZOLIN 2 GM in 0.9 % SODIUM CHLORIDE Mini-bag 100 ML IVPB (19:56)
[2024-12-20] MEDS: MELATONIN 3 MG TABLET 6 MG PO (21:25)
[2024-12-20] MEDS: FAMOTIDINE 20 MG TABLET PO (21:26)
[2024-12-21] VITALS (9 sets, daily range): BP systolic 72–142; BP diastolic 46–91; PULSE 39–78; RESP 14–18; TEMP 36.4–37.3; O2SAT 94–95
[2024-12-21] MEDS: LACTATED RINGERS 1000 ML 1,000 ML 75 ML IV (00:54)
[2024-12-21] MEDS: CEFAZOLIN 2 GM in 0.9 % SODIUM CHLORIDE Mini-bag 100 ML IVPB (03:33)
[2024-12-21 06:05] LABS: Hematocrit 33.3 % (37.0-53.0); Hemoglobin* 10.9 gm/dL (13.5-17.5); Immature Granulocytes Abs Auto 0.01 K/uL (0.00-0.30); Immature Granulocytes Pct Auto 0.1 %; Lymphocytes Absolute Auto 0.70 K/uL (0.90-2.90); Mean Corpuscular HGB Conc 33 gm/dL (32-36); Mean Corpuscular Hemoglobin 31 pg (26-34); Mean Corpuscular Volume 94 fL (80-100); RDW Coefficient of Variation % 15.5 % (11.5-15.5); Red Blood Count 3.55 m/uL (4.30-5.90); White Blood Count* 7.87 K/uL (4.50-11.00)
[2024-12-21 06:15] LABS: Slide Review Reflex No
[2024-12-21 06:21] LABS: Chloride* 105 mmol/L (96-114); Potassium* 4.4 mmol/L (3.6-5.1); Sodium* 134 mmol/L (135-149)
[2024-12-21 06:24] LABS: Anion Gap 4 mEq/L (7-15); Blood Urea Nitrogen* 14 mg/dL (7-30); Calcium* 8.9 mg/dL (8.4-10.6); Carbon Dioxide* 25 mmol/L (20-32); Creatinine* 0.7 mg/dL (0.5-1.5); Est. Creatinine Clearance* 65.55; Estimated Glomerular Filt Rate 99 ml/min; Glucose* 99 mg/dL (60-115)
[2024-12-21] MEDS: CARBIDOPA-LEVODOPA 25-100 TABLET 2.5 TAB PO ×4 (06:37→18:55)
[2024-12-21] MEDS: QUETIAPINE 25 MG TABLET PO (07:04)
--- NOTE | 2024-12-21 07:42 | PC.NURSE ---
Arrived to find the patient alert but oriented to self only. Vitally stable on room air. Speech was garbled and mumbled, soft. His was in the room and remained with him through the night. She noted his speech as being his normal. The things he would say at the start of my shift often did match up with my question or his current situation, but as the night progressed the topic of his speech would be difficult to understand at times. It was clear that he is in discomfort. His right hip is hurting him and his left knee. The patient and his wished to avoid dilaudid due to previous bad reaction to morphine. We alerted the education intern who ordered a one time dose of oxycodone. This was given but did not wholly resolve his pain. Oncoming staff alerted. The patient was also being turned overnight. His right hip did not appear swollen or red. CMS intact in his right leg and foot. Right arm is dislocated at the shoulder. Visible appendage poking up at skin. Skin is thin and fragile over his body. He appears thin and has not been eating nor drinking well. Rader in place overnight and fluids running because of lack of intake and hema coloration of urine. Notable coughing after some intake of pills with water. Oncoming staff notified of need for swallow study. Irritation and delirium seemed most pronounced in the morning at time of transfer of care. Anxious as well. PRN quetiapine given. ?
[2024-12-21] MEDS: ACETAMINOPHEN 500 MG TABLET 1000 MG PO ×3 (09:56→21:43)
[2024-12-21] MEDS: DIGOXIN 125 MCG TABLET PO (09:57)
[2024-12-21] MEDS: RIVAROXABAN 10 MG TABLET PO (09:59)
[2024-12-21] MEDS: GABAPENTIN 300 MG CAPSULE 600 MG PO ×3 (09:59→21:37)
[2024-12-21] MEDS: FINASTERIDE 5 MG TABLET PO (09:59)
[2024-12-21] MEDS: OMEPRAZOLE 20 MG CAPSULE DR PO ×3 (09:59→21:41)
--- NOTE | 2024-12-21 11:59 | PM.IMPN1 ---
Assessment and Plan Assessment and plan (1) Fracture of hip, right, closed: Problem comment: S/p Right hip bipolar hemiarthroplasty, anterior approach, 12/20/2024, Dr. Esteves Hemoglobin 10.9 postoperatively, 11.9 preoperatively PT/OT postoperatively business services vice president assisting with SNF placement Status: Acute (2) Parkinson's disease: Problem comment: Quite disabling. 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 Able to hold onto a walker but not put weight on walker with right arm. Likely this will make ambulation with a walker and a new hip fracture very difficult. Likely require SNF placement Status: Acute (4) Delirium: Problem comment: reports sundowning at home According to the patient's he had a couple days of delirium following his 2 most recent hospitalizations for surgery. He is high risk for recurrent problems with delirium. Monitor. Responded well to small dose Seroquel p.r.n. Status: Acute (5) Atrial fibrillation: Problem comment: On digoxin for rate control. No anticoagulation due to fall risk. Continue to monitor. If too bradycardic may be needs a reduction in digoxin dose Started on Xarelto postoperatively for 1 month due to combined risk of VTE and cardioembolic stroke from AFib Status: Acute (6) Anticoagulation management encounter: Problem comment: Patient has chronic AFib. Chart indicates no ongoing anticoagulation for AFib due to fall risk. Now patient also has hip fracture with significant VTE risk. Xarelto started postop Status: Acute (7) BPH (benign prostatic hyperplasia): Problem comment: Place Rader. Remove Rader once he has recovered from surgery and began to eat and drink. Check bladder scan postoperatively when Rader is out Status: Acute (8) Pain: Problem comment: Patient has chronic pain. This is likely going to be difficult to manage postoperatively with risk for delirium. Status: Acute (9) Insomnia: Problem comment: Following surgery, encourage sleep wake cycle. Melatonin at bedtime Status: Acute (10) Hypertension: Problem comment: Hold home blood pressure medications. Patient is at risk for orthostatic hypotension, especially with perioperative blood loss from hip fracture Resuming home meds 12/21, monitor Status: Acute (11) Discharge planning issues: Problem comment: Will need intermediate facility for rehab when he has recovered from this surgery Status: Acute Plan Continue therapies. Awaiting placement. Total Time Spent Total Time Spent: Today I spent 45 minutes seeing the patient, reviewing [facility] and EPIC notes/diagnostics, discussing the care plan with our care time that includes social work, PT/OT, pharmacy, RT, intermediate and documenting my impressions and plan in the medical record. Subjective Date Seen: 12/21/24 Interval history: Patient is seen sitting up in a chair this morning, at bedside. Appears brighter this morning. Engaged and able to communicate today. Reports pain is adequately controlled at this time. Did have some delirium overnight which responded well to low-dose of Seroquel. Working with PT and OT. business services vice president assisting with finding SNF placement. Exam Narrative: Exam Narrative: PHYSICAL EXAM General: Alert, appears brighter, conversing at baseline, appears in NAD Cardiovascular: IRRR, S1S2. No pitting edema Pulmonary: CTA bilaterally without rhonchi, rales, expiratory wheezes. No dyspnea on room air Neurological: Alert, answering questions appropriately currently, cranial nerves intact, no focal findings Extremities: RLE postop dressing in place, dry Skin: Warm, dry. Const: Vital Signs, click to edit/add: Vital Signs - 24 hr 12/20/24 15:56 12/20/24 16:00 12/20/24 16:05 Temperature 97.9 F Pulse Rate 68 59 L Pulse Rate [Apical ] Pulse Rate [Pulse Oximeter] Respiratory Rate 10 L 12 Blood Pressure 79/49 L 102/68 106/76 Blood Pressure [Le ft Arm] Pulse Oximetry 89 100 Oxygen Delivery Me thod OxyMask Oxygen Flow Rate 10 12/20/24 16:10 12/20/24 16:15 12/20/24 16:25 Temperature Pulse Rate 65 65 70 Pulse Rate [Apical ] Pulse Rate [Pulse Oximeter] Respiratory Rate 13 12 11 L Blood Pressure 102/53 L 113/69 119/87 Blood Pressure [Le ft Arm] Pulse Oximetry 100 100 98 Oxygen Delivery Me thod Nasal Cannula Oxygen Flow Rate 5 12/20/24 16:30 12/20/24 16:35 12/20/24 16:50 Temperature 98.4 F 97.3 F L Pulse Rate 76 75 Pulse Rate [Apical ] 64 Pulse Rate [Pulse Oximeter] 64 Respiratory Rate 15 15 16 Blood Pressure 118/88 106/63 Blood Pressure [Le ft Arm] 134/116 H Pulse Oximetry 98 97 94 Oxygen Delivery Me thod Room Air Room Air Oxygen Flow Rate 2 12/20/24 17:00 12/20/24 17:15 12/20/24 17:30 Temperature 98.6 F 97.4 F L 97.7 F Pulse Rate Pulse Rate [Apical ] Pulse Rate [Pulse Oximeter] 61 62 61 Respiratory Rate 18 18 18 Blood Pressure Blood Pressure [Le ft Arm] 158/143 H 132/79 117/80 Pulse Oximetry 94 91 92 Oxygen Delivery Me thod Room Air Room Air Room Air Oxygen Flow Rate 12/20/24 17:45 12/20/24 18:00 12/20/24 18:30 Temperature 98.2 F 97.9 F 98 F Pulse Rate Pulse Rate [Apical ] Pulse Rate [Pulse Oximeter] 69 61 59 L Respiratory Rate 18 16 16 Blood Pressure Blood Pressure [Le ft Arm] 128/77 123/82 119/84 Pulse Oximetry 92 92 93 Oxygen Delivery Me thod Room Air Room Air Room Air Oxygen Flow Rate 12/20/24 19:30 12/20/24 19:40 12/20/24 20:50 Temperature 98.1 F 98.4 F Pulse Rate Pulse Rate [Apical ] Pulse Rate [Pulse Oximeter] 56 L 59 L Respiratory Rate 14 14 Blood Pressure Blood Pressure [Le ft Arm] 95/75 111/69 111/65 Pulse Oximetry 93 91 Oxygen Delivery Me thod Room Air Room Air Oxygen Flow Rate 12/20/24 22:00 12/20/24 22:20 12/20/24 22:45 Temperature Pulse Rate 55 L Pulse Rate [Apical ] Pulse Rate [Pulse Oximeter] Respiratory Rate 14 Blood Pressure Blood Pressure [Le ft Arm] 99/71 Pulse Oximetry 91 Oxygen Delivery Me thod Room Air Oxygen Flow Rate 12/20/24 23:00 12/21/24 03:40 12/21/24 07:00 Temperature 98.1 F 98.1 F Pulse Rate Pulse Rate [Apical ] Pulse Rate [Pulse Oximeter] 57 L 58 L Respiratory Rate 16 16 18 Blood Pressure Blood Pressure [Le ft Arm] 111/66 142/81 H Pulse Oximetry 96 95 94 Oxygen Delivery Me thod Room Air Room Air Room Air Oxygen Flow Rate 12/21/24 07:00 12/21/24 07:00 12/21/24 09:57 Temperature 99.1 F Pulse Rate 74 75 Pulse Rate [Apical ] Pulse Rate [Pulse Oximeter] 75 Respiratory Rate 18 Blood Pressure Blood Pressure [Le ft Arm] 138/79 Pulse Oximetry 94 Oxygen Delivery Me thod Room Air Oxygen Flow Rate Labs Labs: Laboratory Results - last 24 hr 12/21/24 05:40 WBC 7.87 RBC 3.55 L Hgb 10.9 L Hct 33.3 L MCV 94 MCH 31 MCHC 33 RDW Coeff of Evan 15.5 Plt Count 183 Neut % (Auto) 78.5 H Lymph % (Auto) 8.9 L [place] % (Auto) 9.5 Eos % (Auto) 2.2 Baso % (Auto) 0.8 Neut # (Auto) 6.20 Lymph # (Auto) 0.70 L [place] # (Auto) 0.70 Eos # (Auto) 0.17 Baso # (Auto) 0.06 Abs Immat Gran (auto) 0.01 Imm/Tot Granulo (auto) 0.1 Sodium 134 L Potassium 4.4 Chloride 105 Carbon Dioxide 25 Anion Gap 4 L BUN 14 Creatinine 0.7 Estimated Creat Clear 65.55 Estimated GFR 99 Glucose 99 Calcium 8.9
--- NOTE | 2024-12-21 14:02 | NUTR.NU ---
Nutrition Note: Nutrition screen initiated related to nursing referral for chewing, swallowing difficulty and skin score 10. Height 68, weight 185 lbs, BMI 28.1. Patient admit with fall right hip fx and surgery 12/20/24 afternoon. Other diagnosis includes parkinsons. No diet order. Intake 50% at breakfast. Discussed with patient's nurse. Nurse noticed some coughing with intake of regular diet, reports not usual. Charge nurse will order swallowing evaluation. Monitor for results of evaluation, diet order, tolerance and intake. Follow up prn.
--- NOTE | 2024-12-21 16:12 | PC.SOCIAL ---
Discharge planning: SW met with patient and patient's to discuss rehab, which both are agreeable to. Patient's states that [facility] is their first choice and [facility] is their second. JOSLYN explained she will send referrals and keep them updated on status. JOSLYN sent as much information to [facility] as possible, but is waiting for PT notes to send to them. SW to send them when they are entered.
--- NOTE | 2024-12-21 18:15 | PM.ORPN ---
Subjective Subjective Date Seen: 12/21/24 Principal diagnosis: Status post right hip bipolar arthroplasty, anterior approach Interval history: Patient reports doing okay. No acute events over night. Pain managed with scheduled and PRN medications, ice. DVT prophylaxis: Rivaroxaban, SCDs, walking with assistance. Denies fevers, chills, aches, N/V, CP, SOB/CHRISTINA, or lightheadedness. Ortho Exam Narrative Exam Narrative: -Patient appears comfortable in bed lying supine; no apparent acute distress -Alert and oriented times 3 -speech is mumbled, which is baseline for patient -Operative hip swollen; soft tissues supple; no obvious erythema. Ecchymosis minimal. Warmth appropriate -Surgical dressing clean, dry, intact; no obvious drainage, no erythematous streaking peripheral to the bandage -Bilateral calves soft and supple; no significant swelling, edema, tenderness, erythema, discoloration, warmth, or palpable cords -right lower extremity knee immobilizer in place. -2+ DP/PT pulses, intact dermatomes and myotomes distally (5/5 strength). No numbness about the lateral femoral cutaneous nerve distribution. Const Vital Signs, click to edit/add: Vital Signs - 24 hr 12/20/24 18:30 12/20/24 19:30 12/20/24 19:40 Temperature 98 F 98.1 F Pulse Rate Pulse Rate [Pulse Oximeter] 59 L 56 L Respiratory Rate 16 14 Blood Pressure [Left Arm] 119/84 95/75 111/69 Pulse Oximetry 93 93 Oxygen Delivery Method Room Air Room Air 12/20/24 20:50 12/20/24 22:00 12/20/24 22:20 Temperature 98.4 F Pulse Rate 55 L Pulse Rate [Pulse Oximeter] 59 L Respiratory Rate 14 Blood Pressure [Left Arm] 111/65 99/71 Pulse Oximetry 91 Oxygen Delivery Method Room Air 12/20/24 22:45 12/20/24 23:00 12/21/24 03:40 Temperature 98.1 F 98.1 F Pulse Rate Pulse Rate [Pulse Oximeter] 57 L 58 L Respiratory Rate 14 16 16 Blood Pressure [Left Arm] 111/66 142/81 H Pulse Oximetry 91 96 95 Oxygen Delivery Method Room Air Room Air Room Air 12/21/24 07:00 12/21/24 07:00 12/21/24 07:00 Temperature 99.1 F Pulse Rate 74 Pulse Rate [Pulse Oximeter] 75 Respiratory Rate 18 18 Blood Pressure [Left Arm] 138/79 Pulse Oximetry 94 94 Oxygen Delivery Method Room Air Room Air 12/21/24 09:57 12/21/24 11:00 12/21/24 15:00 Temperature 97.9 F Pulse Rate 75 Pulse Rate [Pulse Oximeter] 78 Respiratory Rate 16 Blood Pressure [Left Arm] 129/91 H Pulse Oximetry 94 94 Oxygen Delivery Method Room Air Room Air 12/21/24 15:00 12/21/24 15:20 Temperature 97.5 F L Pulse Rate 61 Pulse Rate [Pulse Oximeter] 67 Respiratory Rate 18 Blood Pressure [Left Arm] 108/77 Pulse Oximetry 94 Oxygen Delivery Method Room Air Assessment and Plan Assessment and plan (1) Fracture of hip, right, closed: Problem details: S/p Right hip bipolar hemiarthroplasty, anterior approach, 12/20/2024, Dr. Esteves Hemoglobin 10.9 postoperatively, 11.9 preoperatively PT/OT postoperatively pharmacy services representative assisting with SNF placement Status: Acute (2) Parkinson's disease: Problem details: Quite disabling. 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 Able to hold onto a walker but not put weight on walker with right arm. Likely this will make ambulation with a walker and a new hip fracture very difficult. Likely require SNF placement Status: Acute (4) Delirium: Problem details: reports sundowning at home According to the patient's he had a couple days of delirium following his 2 most recent hospitalizations for surgery. He is high risk for recurrent problems with delirium. Monitor. Responded well to small dose Seroquel p.r.n. Status: Acute (5) Atrial fibrillation: Problem details: On digoxin for rate control. No anticoagulation due to fall risk. Continue to monitor. If too bradycardic may be needs a reduction in digoxin dose Started on Xarelto postoperatively for 1 month due to combined risk of VTE and cardioembolic stroke from AFib Status: Acute (6) Anticoagulation management encounter: Problem details: Patient has chronic AFib. Chart indicates no ongoing anticoagulation for AFib due to fall risk. Now patient also has hip fracture with significant VTE risk. Xarelto started postop Status: Acute (7) BPH (benign prostatic hyperplasia): Problem details: Place Rader. Remove Rader once he has recovered from surgery and began to eat and drink. Check bladder scan postoperatively when Rader is out Status: Acute (8) Pain: Problem details: Patient has chronic pain. This is likely going to be difficult to manage postoperatively with risk for delirium. Status: Acute (9) Insomnia: Problem details: Following surgery, encourage sleep wake cycle. Melatonin at bedtime Status: Acute (10) Hypertension: Problem details: Hold home blood pressure medications. Patient is at risk for orthostatic hypotension, especially with perioperative blood loss from hip fracture Resuming home meds 12/21, monitor Status: Acute (11) Discharge planning issues: Problem details: Will need senior living facility for rehab when he has recovered from this surgery Status: Acute Plan - Complete 23 hour perioperative antibiotics. - PT/OT consult for education and assistance. - Social work consult for discharge planning - will require SNF placement - Prescribed analgesics as needed - minimize as possible - DVT prophylaxis: Rivaroxaban for 1 month, walking with assistance, and SCDs - patient should have knee immobilizer on the right lower extremity whenever up and moving. May have knee immobilizer off while sleeping, and when performing PT exercises when nonweightbearing. - Anticipation is for discharge to SNF once placement is found.
--- NOTE | 2024-12-21 19:33 | PC.NURSE ---
End of shift [id number] - Pt alert, oriented to self. Up with x2 heavy assistance and walker/gait belt. Able to stand/pivot and responded best to giving verbal direction. Denied pain, SOB, n/v. Tolerating RA and regular fluid/diet however appetite noted to be low. Pt observed to sputter while drinking ice water, order placed per protocol. Pt appeared to have less difficulty with room temp water instead of ice water and no further sputtering was noted by RN. Dressing CDI, pedal pulse present, knee immobilizer in place per Ortho. Michaud catheter intact and draining, output noted to be orange/ramirez red r/t pt pulling on catheter during shift as observed by . Pt denied pain and michaud observed to be patent. Pt appears to be resting in bed with call light within reach and family at bedside.
[2024-12-21] MEDS: TRAZODONE HCL 50 MG TABLET 100 MG PO (21:36)
[2024-12-21] MEDS: MELATONIN 3 MG TABLET 6 MG PO (21:39)
[2024-12-21] MEDS: FAMOTIDINE 20 MG TABLET PO (21:41)
[2024-12-21] MEDS: SODIUM CHLORIDE 0.9 % (FLUSH) 10 ML SYRINGE 5 ML IVF (21:44)
[2024-12-21] MEDS: LACTATED RINGERS 500 ML 500 ML IV (23:30)
[2024-12-22] MEDS: LACTATED RINGERS 1000 ML 1,000 ML 125 ML IV ×2 (00:04→03:50)
[2024-12-22 01:58] VITALS: PULSE 56
[2024-12-22 02:45] VITALS: BP 132/72; PULSE 64; RESP 16; TEMP 36.4; O2SAT 93
[2024-12-22 06:30] LABS: Hematocrit 33.5 % (37.0-53.0); Hemoglobin* 10.9 gm/dL (13.5-17.5); Immature Granulocytes Abs Auto 0.01 K/uL (0.00-0.30); Immature Granulocytes Pct Auto 0.1 %; Mean Corpuscular HGB Conc 33 gm/dL (32-36); Mean Corpuscular Hemoglobin 30 pg (26-34); Mean Corpuscular Volume 94 fL (80-100); RDW Coefficient of Variation % 15.6 % (11.5-15.5); Red Blood Count 3.58 m/uL (4.30-5.90); White Blood Count* 7.55 K/uL (4.50-11.00)
[2024-12-22 06:33] LABS: Lymphocytes Absolute Auto 1.00 K/uL (0.90-2.90); Slide Review Reflex No
[2024-12-22 06:35] LABS: Chloride* 107 mmol/L (96-114)
[2024-12-22 06:36] LABS: Potassium* 3.9 mmol/L (3.6-5.1); Sodium* 137 mmol/L (135-149)
[2024-12-22 06:38] LABS: Blood Urea Nitrogen* 11 mg/dL (7-30); Creatinine* 0.7 mg/dL (0.5-1.5); Est. Creatinine Clearance* 65.55; Estimated Glomerular Filt Rate 99 ml/min
[2024-12-22 06:39] LABS: Anion Gap 3 mEq/L (7-15); Calcium* 8.6 mg/dL (8.4-10.6); Carbon Dioxide* 27 mmol/L (20-32); Glucose* 93 mg/dL (60-115)
[2024-12-22] MEDS: CARBIDOPA-LEVODOPA 25-100 TABLET 2.5 TAB PO ×2 (06:57→11:30)
--- NOTE | 2024-12-22 07:58 | PC.NURSE ---
Arrived to find the patient alert and oriented. Vitally they have had a variable heart rate. Sometimes it would sit in the 40s and then back up into the 60s. Currently in A-fib. 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 This was some time after administering both scheduled gabapentin and a PRN does of trazadone. Otherwise their mentation has been in line with someone with advanced Parkinsons and delirium. Urine was dark and bloody at shift start. This resolved to a light pink, hema in the morning. The catheter was deflated and partially reinserted to ensure proper placement. One episode of incontinence in the morning. At time of transfer of care the patient was in a stable state of health. ?
[2024-12-22 08:23] VITALS: BP 122/76; PULSE 70; RESP 16; TEMP 36.8; O2SAT 93
[2024-12-22 08:31] VITALS: PULSE 70
[2024-12-22] MEDS: DIGOXIN 125 MCG TABLET PO (08:31)
[2024-12-22] MEDS: VALSARTAN 80 MG TABLET PO (08:31)
[2024-12-22] MEDS: FINASTERIDE 5 MG TABLET PO (08:31)
[2024-12-22] MEDS: GABAPENTIN 300 MG CAPSULE 600 MG PO (08:31)
[2024-12-22] MEDS: RIVAROXABAN 10 MG TABLET PO (08:31)
[2024-12-22] MEDS: ACETAMINOPHEN 500 MG TABLET 1000 MG PO (08:31)
[2024-12-22] MEDS: NYSTATIN CREAM 30 GM 1 APPLIC TOPICAL (08:32)
[2024-12-22] MEDS: SODIUM CHLORIDE 0.9 % (FLUSH) 10 ML SYRINGE 5 ML IVF (08:32)
[2024-12-22 10:21] VITALS: PULSE 61
--- NOTE | 2024-12-22 11:03 | PM.DS1 ---
DS: Providers Provider Date Seen: 12/22/24 Date of admission: 12/19/24 20:17 Primary care physician: Bill Wolf MD Admitting Clinician: Rickey Gomez MD Consults: 12/19/24 20:17 Consult to Physician [CONS] Routine Comment: Consulting Provider: Gary Ricci Has provider been notified: Yes Consult to Job Placement Specialist [CONS] Routine Comment: Reason for Consult:: Discharge Planning Needs 12/20/24 17:44 Consult to Physical Therapy [CONS] Routine Comment: Ambulate in the guerrier today Reason(s) for PT Consult:: Evaluate and Treat Any Restrictions?:: No Restrictions Comment: Nursing Activity Attending Physician on discharge: NAVYA Bustos, [facility] Date [facility] Discharge: 12/22/24 DS: Diagnosis Discharge Diagnosis (1) Fracture of hip, right, closed: Status: Acute Problem details: S/p Right hip bipolar hemiarthroplasty, anterior approach, 12/20/2024, Dr. Esteves Hemoglobin 10.9 postoperatively - has remained stable, 11.9 preoperatively PT/OT postoperatively On day of discharge, hemoglobin remains stable at 10.9. medical services coordinator has assisted in getting placement at [facility]. Pain management to include scheduled Tylenol, oxycodone p.r.n.. Will continue with PT and OT. (2) Parkinson's disease: Status: Acute Problem details: Quite disabling. 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 Able to hold onto a walker but not put weight on walker with right arm. Likely this will make ambulation with a walker and a new hip fracture very difficult. (4) Delirium: Status: Acute Problem details: reports sundowning at home According to the patient's he had a couple days of delirium following his 2 most recent hospitalizations for surgery. He is high risk for recurrent problems with delirium. Monitor. Responded well to small dose Seroquel p.r.n. Prior to discharge, had 1 episode of post op delirium the night after surgery which responded well to a small dose of Seroquel. No further episodes. Patient is actually quite alert, conversing and interacting near baseline prior to discharge. (5) Atrial fibrillation: Status: Acute Problem details: On digoxin for rate control. No anticoagulation due to fall risk. Continue to monitor. If too bradycardic may be needs a reduction in digoxin dose Started on Xarelto postoperatively for 1 month due to combined risk of VTE and cardioembolic stroke from AFib (6) Anticoagulation management encounter: Status: Acute Problem details: Patient has chronic AFib. Chart indicates no ongoing anticoagulation for AFib due to fall risk. Now patient also has hip fracture with significant VTE risk. Xarelto started postop (7) BPH (benign prostatic hyperplasia): Status: Acute Problem details: Rader catheter in place postoperatively. Mobility still quite limited, discomfort with frequent repositioning. Will leave in place on discharge to be removed when appropriate. (8) Pain: Status: Acute Problem details: Patient has chronic pain. This is likely going to be difficult to manage postoperatively with risk for delirium. Continue home medications for pain management. Oxycodone and scheduled Tylenol for acute postoperative pain. (9) Insomnia: Status: Acute Problem details: Following surgery, encourage sleep wake cycle. Resume home medications of melatonin and trazodone at bedtime (10) Hypertension: Status: Acute Problem details: Hold home blood pressure medications. Patient is at risk for orthostatic hypotension, especially with perioperative blood loss from hip fracture Pressures have remained normotensive, home medications have been resumed. DS: Summary Hospital Course Hospital Course: Admitted for hip fracture following a fall, POD#2 s/p Right hip bipolar hemiarthroplasty, anterior approach, 12/20/2024, Dr. Esteves. Discharged to [facility] for ongoing postoperative rehab. Tylenol and oxycodone as needed for pain. Continuing home medications. Remainder of chronic medical comorbidities were monitored and managed with home medications. Status at Discharge Functional status at discharge: uses cane/walker Overall status at discharge: patient is progressing back to baseline Time Spent with Patient Time attestation: Total time spent providing and/or coordinating discharge services: Time spent: Greater than 30 minutes Exam Narrative: Exam Narrative: PHYSICAL EXAM General: Pleasant, conversant, NAD Cardiovascular: RRR Pulmonary: No dyspnea Neurological: Alert, answering questions appropriately Extremities: RLE postoperative dressing in place, dry, no drainage Skin: Warm, dry. Const: Vital Signs, click to edit/add: Vital Signs - 24 hr 12/21/24 15:00 12/21/24 15:00 12/21/24 15:20 Temperature 97.5 F L Pulse Rate 61 Pulse Rate [Apical ] Pulse Rate [Pulse Oximeter] 67 Respiratory Rate 18 Blood Pressure [Le ft Arm] 108/77 Pulse Oximetry 94 94 Oxygen Delivery [facility] Room Air Room Air 12/21/24 19:45 12/21/24 23:00 12/21/24 23:00 Temperature 98.2 F Pulse Rate Pulse Rate [Apical ] 39 L Pulse Rate [Pulse Oximeter] 63 Respiratory Rate 16 16 Blood Pressure [Le ft Arm] 117/79 Pulse Oximetry 94 94 Oxygen Delivery [facility] Room Air Room Air 12/21/24 23:10 12/22/24 01:58 12/22/24 02:45 Temperature 97.9 F 97.5 F L Pulse Rate 56 L Pulse Rate [Apical ] Pulse Rate [Pulse Oximeter] 39 L 64 Respiratory Rate 14 16 Blood Pressure [Le ft Arm] 72/46 L 132/72 Pulse Oximetry 94 93 Oxygen Delivery [facility] Room Air Room Air 12/22/24 08:23 12/22/24 08:23 12/22/24 08:23 Temperature 98.2 F Pulse Rate Pulse Rate [Apical ] Pulse Rate [Pulse Oximeter] 70 70 Respiratory Rate 16 16 16 Blood Pressure [Le ft Arm] 122/76 Pulse Oximetry 93 Oxygen Delivery [facility] Room Air Room Air 12/22/24 08:31 12/22/24 10:21 Temperature Pulse Rate 70 61 Pulse Rate [Apical ] Pulse Rate [Pulse Oximeter] Respiratory Rate Blood Pressure [Le ft Arm] Pulse Oximetry Oxygen Delivery Me od DS: Data Data Completed and Pending Labs on day of discharge: Labs from last 24 hours 12/22/24 06:06 WBC 7.55 RBC 3.58 L Hgb 10.9 L Hct 33.5 L MCV 94 MCH 30 MCHC 33 RDW Coeff of Evan 15.6 H Plt Count 169 Neut % (Auto) 72.1 H Lymph % (Auto) 12.8 L [place] % (Auto) 10.6 Eos % (Auto) 3.7 Baso % (Auto) 0.7 Neut # (Auto) 5.40 Lymph # (Auto) 1.00 [place] # (Auto) 0.80 Eos # (Auto) 0.28 Baso # (Auto) 0.05 Abs Immat Gran (auto) 0.01 Imm/Tot Granulo (auto) 0.1 Sodium 137 Potassium 3.9 Chloride 107 Carbon Dioxide 27 Anion Gap 3 L BUN 11 Creatinine 0.7 Estimated Creat Clear 65.55 Estimated GFR 99 Glucose 93 Calcium 8.6 Imaging C-spine CT: Attestation: I have reviewed the pertinent imaging results. Radiologist's impression: No acute fracture or traumatic subluxation. 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 No lytic or blastic lesion. Unremarkable prevertebral soft tissues. Atherosclerotic calcification at the carotid bifurcations. At least moderate spinal canal stenosis at C3-C4 as a result of the anterolisthesis. Multilevel neural foraminal narrowing, moderate-severe bilaterally at C3-C4, on the right at C4-C5, and on the left at C6-C7. Impression: 1. No acute fracture or traumatic subluxation. 2. 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 3. At least moderate spinal canal stenosis at C3-C4 as a result of the anterolisthesis. MR cervical spine may provide further characterization. Chest x-ray: Attestation: I have reviewed the pertinent imaging results. Radiologist's impression: Cardiovascular and mediastinum: Prominent cardiac silhouette despite portable technique. Unremarkable thoracic aorta. Lungs and pleural spaces: Elevated right hemidiaphragm with adjacent passive atelectasis. No focal consolidation, pleural effusion, or pneumothorax. Bones and soft tissues: No definite displaced rib fracture. High-riding left humeral head, compatible with age-indeterminate complete rotator cuff tear. Right shoulder arthroplasty. Possible old right clavicle fracture. CT scan - head: Attestation: I have reviewed the pertinent imaging results. Radiologist's impression: No acute intracranial hemorrhage. The almeida-white matter interface is preserved. Mild diffuse parenchymal volume loss. The ventricles are proportional to the sulci. No abnormal extra-axial fluid collection is identified. No calvarial fracture. Unremarkable orbits. The paranasal sinuses and mastoid air cells are clear. IMPRESSION: No acute intracranial abnormality. Hip x-ray: Attestation: I have reviewed the pertinent imaging results. Radiologist's impression: There is an acute mildly impacted right femoral neck fracture. No other fracture. Right hip joint space is moderately narrowed without significant subchondral sclerosis or cystic formation. There is a left hip arthroplasty that is partially seen in the field of view. No focal bone lesions. Normal bone mineralization. Atherosclerotic vascular calcifications. Surgical clips in the scrotum. IMPRESSION: Mildly impacted right femoral neck fracture. Discharge Plan Discharge Disposition: [facility] Date of Admission: 12/19/24 20:17 Attending Provider on Discharge: Charla Buitrago Consulting Providers: Gary Ricci Primary Care Provider: Bill Wolf Condition: Improved Anticipated Discharge Date/Time: 12/22/24 10:42 Discharge Medications: New acetaminophen 500 mg Tablet 1,000 mg PO TID Qty: 90 0RF oxycodone 5 mg Tablet 5 mg PO Q4H PRNQty: 20 0RF Xarelto 10 mg Tablet 10 mg PO DAILY 28 Days Qty: 28 0RF Continued (DME) Adult Wheelchair Misc See Rx Instructions .Route Qty: 1 0RF Rx Instructions: Wheel chair with elevated leg rest right leg. (DME) Adult Wheelchair Misc See Rx Instructions .Route Qty: 1 0RF Rx Instructions: motorized wheelchair cholecalciferol (vitamin D3) 50 mcg (2,000 unit) tablet 50 mcg PO DAILY carbidopa-levodopa 25-100 mg tablet 2.5 tab PO QID Rx Instructions: 2.5 tablets 4 times daily polyethylene glycol 3350 17 gram/dose powder 17 g PO DAILY Rx Instructions: Every 24 hours digoxin 125 mcg (0.125 mg) tablet 0.125 mg PO DAILY entacapone 200 mg tablet 200 mg PO QID Folbic 2.5-25-2 mg tablet 1 tab PO DAILY valsartan 160 mg tablet 80 mg PO DAILY famotidine 40 mg tablet 20 mg PO DAILY Qty: 60 3RF pantoprazole 20 mg tablet,delayed release (DR/EC) 20 mg PO BID Qty: 90 3RF melatonin 5 mg tablet 7.5 mg PO HS PRN vitamins A,C,A-sdhm-jgayhf 2,148 mcg-113 mg-45 mg-17.4mg tablet 1 tab PO BID Rx Instructions: administer with AM and PM meals amoxicillin 500 mg capsule 2,000 mg PO ONCE Qty: 7 0RF Rx Instructions: 1 HR PRIOR TO APPT gabapentin 300 mg capsule 600 mg PO TID Qty: 540 0RF nystatin 100,000 unit/gram cream 1 applic topical BID Qty: 30 2RF meloxicam 7.5 mg tablet 7.5 - 15 mg PO DAILY Qty: 90 3RF finasteride 5 mg tablet 5 mg PO DAILY Qty: 90 3RF Changed trazodone 50 mg tablet 100 mg PO HS PRN (Reason: pain) Qty: 30 0RF Discontinued acetaminophen [Tylenol Extra Strength] 500 mg tablet 500 mg PO BID PRN aspirin 81 mg tablet,delayed release (DR/EC) 81 mg PO DAILY sulfamethoxazole-trimethoprim [Bactrim DS] 800-160 mg tablet 1 tab PO BID Qty: 10 0RF Discharge Orders: Discharge Order (Routine); Ordered 12/22/24 Ordered By: Charla Buitrago Activity Level: Other Activity Detail: per PT/OT Discharge Diet: Regular Follow Up Appointments: Bill Wolf MD [Primary Care Provider, Internal Medicine] Referral Note: Post hospital follow up 7-10 days [facility]: SNF Discharge Potential: Good Length of Stay: <30 days Can use facility standing orders?: Yes Code Status: Full Code Rehab Potential: Good Therapy: Physical Therapy and Occupational Therapy Therapy Orders: Evaluate and Treat Oxygen: No Urinary Catheter: Yes Orders are good >30 days: No Signature: Charla Buitrago, NAVYA, PA-C [facility]
[2024-12-22 11:46] VITALS: BP 138/77; PULSE 69; RESP 20; TEMP 37; O2SAT 97
--- NOTE | 2024-12-22 12:33 | P.ORPN_ITS ---
Subjective Subjective Date Seen: 12/22/24 Principal diagnosis: POD 2 right hip bipolar arthroplasty, anterior approach Interval history: Patient reports doing okay. No acute events over night. Pain managed with scheduled and PRN medications, ice. DVT prophylaxis: Rivaroxaban, SCDs, walking. Denies fevers, chills, aches, N/V, CP, SOB/CHRISTINA, or lightheadedness. Has had bowel movement. Ortho Exam Narrative Exam Narrative: -Patient appears comfortable in recliner eating lunch; no apparent acute distress -Alert and oriented times 3; more coherent in speech today which reportedly is his baseline. -Operative hip swollen; soft tissues supple; no obvious erythema. Warmth appropriate -Surgical dressing clean, dry, intact; no obvious drainage, no erythematous st reaking peripheral to the bandage -Bilateral calves soft and supple; no significant swelling, edema, tenderness, erythema, discoloration, warmth, or palpable cords -knee immobilizer on the right lower extremity -2+ DP/PT pulses, intact dermatomes and myotomes distally (5/5 strength). No numbness about the lateral femoral cutaneous nerve distribution. Const Vital Signs, click to edit/add: Vital Signs - 24 hr 12/21/24 15:00 12/21/24 15:00 12/21/24 15:20 Temperature 97.5 F L Pulse Rate 61 Pulse Rate [Apical] Pulse Rate [Pulse Oximeter] 67 Respiratory Rate 18 Blood Pressure [Left Arm] 108/77 Pulse Oximetry 94 94 Oxygen Delivery Method Room Air Room Air 12/21/24 19:45 12/21/24 23:00 12/21/24 23:00 Temperature 98.2 F Pulse Rate Pulse Rate [Apical] 39 L Pulse Rate [Pulse Oximeter] 63 Respiratory Rate 16 16 Blood Pressure [Left Arm] 117/79 Pulse Oximetry 94 94 Oxygen Delivery Method Room Air Room Air 12/21/24 23:10 12/22/24 01:58 12/22/24 02:45 Temperature 97.9 F 97.5 F L Pulse Rate 56 L Pulse Rate [Apical] Pulse Rate [Pulse Oximeter] 39 L 64 Respiratory Rate 14 16 Blood Pressure [Left Arm] 72/46 L 132/72 Pulse Oximetry 94 93 Oxygen Delivery Method Room Air Room Air 12/22/24 08:23 12/22/24 08:23 12/22/24 08:23 Temperature 98.2 F Pulse Rate Pulse Rate [Apical] Pulse Rate [Pulse Oximeter] 70 70 Respiratory Rate 16 16 16 Blood Pressure [Left Arm] 122/76 Pulse Oximetry 93 Oxygen Delivery Method Room Air Room Air 12/22/24 08:31 12/22/24 10:21 12/22/24 11:46 Temperature 98.6 F Pulse Rate 70 61 Pulse Rate [Apical] Pulse Rate [Pulse Oximeter] 69 Respiratory Rate 20 Blood Pressure [Left Arm] 138/77 Pulse Oximetry 97 Oxygen Delivery Method Assessment and Plan Assessment and plan (1) Fracture of hip, right, closed: Problem details: S/p Right hip bipolar hemiarthroplasty, anterior approach, 12/20/2024, Dr. Esteves Hemoglobin 10.9 postoperatively - has remained stable, 11.9 preoperatively PT/OT postoperatively On day of discharge, hemoglobin remains stable at 10.9. human services instructor has assisted in getting placement at [facility]. Pain management to include scheduled Tylenol, oxycodone p.r.n.. Will continue with PT and OT. Status: Acute (2) Parkinson's disease: Problem details: Quite disabling. 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 Able to hold onto a walker but not put weight on walker with right arm. Likely this will make ambulation with a walker and a new hip fracture very difficult. Status: Acute (4) Delirium: Problem details: reports sundowning at home According to the patient's he had a couple days of delirium following his 2 most recent hospitalizations for surgery. He is high risk for recurrent problems with delirium. Monitor. Responded well to small dose Seroquel p.r.n. Prior to discharge, had 1 episode of post op delirium the night after surgery which responded well to a small dose of Seroquel. No further episodes. Patient is actually quite alert, conversing and interacting near baseline prior to discharge. Status: Acute (5) Atrial fibrillation: Problem details: On digoxin for rate control. No anticoagulation due to fall risk. Continue to monitor. If too bradycardic may be needs a reduction in digoxin dose Started on Xarelto postoperatively for 1 month due to combined risk of VTE and cardioembolic stroke from AFib Status: Acute (6) Anticoagulation management encounter: Problem details: Patient has chronic AFib. Chart indicates no ongoing anticoagulation for AFib due to fall risk. Now patient also has hip fracture with significant VTE risk. Xarelto started postop Status: Acute (7) BPH (benign prostatic hyperplasia): Problem details: Rader catheter in place postoperatively. Mobility still quite limited, discomfort with frequent repositioning. Will leave in place on discharge to be removed when appropriate. Status: Acute (8) Pain: Problem details: Patient has chronic pain. This is likely going to be difficult to manage postoperatively with risk for delirium. Continue home medications for pain management. Oxycodone and scheduled Tylenol for acute postoperative pain. Status: Acute (9) Insomnia: Problem details: Following surgery, encourage sleep wake cycle. Resume home medications of melatonin and trazodone at bedtime Status: Acute (10) Hypertension: Problem details: Hold home blood pressure medications. Patient is at risk for orthostatic hypotension, especially with perioperative blood loss from hip fracture Pressures have remained normotensive, home medications have been resumed. Status: Acute Plan - PT/OT consult for education and assistance. - Social work consult for discharge planning - Prescribed analgesics as needed - minimize use, wean as tolerated - DVT prophylaxis: 1 month rivaroxaban, walking, and SCDs - keep knee immobilizer on right lower extremity when weight-bearing and during transfers. - Anticipation is for discharge to SNF today 12/22/2024 via EMS .
--- NOTE | 2024-12-22 12:47 | PC.NURSE ---
Discharge: Patient pleasant and cooperative, oriented to self and place. Patient vitally stable, lungs clear, BS WNL, IV's removed, catheter intact. Right hip dressing C/D/I. Patient reports always having pain, only scheduled tylenol given. Tele= A.fib. Patient is 2 assist/walker/gb. Rader intact and draining bloody urine. Patient tolerating regular diet, but does not have much of an appetite. Patient signed belongings sheet and discharge form. Patient left the floor by EMS to [facility] at 1238. Nurse to Nurse report was given to [facility].
== END 2024-12-22 12:38 | DRG 522 ==
LOC: ED 19:46 → MEDSURG 19:50
PROVIDERS: Orthopaedic Surgery Sports Medicine; Admitting Provider Family Medicine; Emergency Provider Family Medicine; PCP Internal Medicine; Visit Provider Family Medicine
PROC: 0SRR01A Replacement of Right Hip Joint, Femoral Surface with Metal Synthetic Substitute, Uncemented, Open Approach (ICD-10-PCS; principal; 2024-12-20 13:15)
DX: S72.001A Fracture of unspecified part of neck of right femur, initial encounter for closed fracture (principal); I48.20 Chronic atrial fibrillation, unspecified; I48.92 Unspecified atrial flutter; S82.001K Unspecified fracture of right patella, subsequent encounter for closed fracture with nonunion; G89.18 Other acute postprocedural pain; R41.0 Disorientation, unspecified; G20.A1 Parkinson's disease without dyskinesia, without mention of fluctuations; W01.0XXA Fall on same level from slipping, tripping and stumbling without subsequent striking against object, initial encounter; Y92.009 Unspecified place in unspecified non-institutional (private) residence as the place of occurrence of the external cause; M75.102 Unspecified rotator cuff tear or rupture of left shoulder, not specified as traumatic; M24.411 Recurrent dislocation, right shoulder; G89.29 Other chronic pain; T84.09 Other mechanical complication of internal joint prosthesis; G47.33 Obstructive sleep apnea (adult) (pediatric); Z91.81 History of falling; I10 Essential (primary) hypertension; I45.10 Unspecified right bundle-branch block; Z79.82 Long term (current) use of aspirin; Z79.01 Long term (current) use of anticoagulants; N40.1 Benign prostatic hyperplasia with lower urinary tract symptoms; Z87.440 Personal history of urinary (tract) infections; G47.00 Insomnia, unspecified
CPT/HCPCS: 01230; 36415; 51701; 64450; 70450; 71045; 72125; 73501; 73502; 76000; 76942; 80048; 80053; 80162; 81001; 83605; 84484; 85025; 87086; 93005; 94761; 97110; 97162; 97530; 99100; 99285; A9270; C1776; J0690; J1171; J2250; J2371; J2405; J2704; J2795; J3010; J3490; J7120

== ENCOUNTER 2024-12-22 12:33 | Outpatient (CLI) | payer MEDICARE, BC, SELFPAY | END 2024-12-22 12:34 | disposition home or self-care (01) | PROVIDERS: PCP Internal Medicine; Visit Provider Family Medicine | DX: S72.001A Fracture of unspecified part of neck of right femur, initial encounter for closed fracture (principal); G20.A1 Parkinson's disease without dyskinesia, without mention of fluctuations; Z98.890 Other specified postprocedural states | CPT/HCPCS: A0425; A0428 ==

== ENCOUNTER 2024-12-31 21:43 | Outpatient (REF) | payer MEDICARE, BC, SELFPAY ==
--- OUTSIDE RECORDS SUMMARY | 2024-11-30 08:39 | XMS_ITS | Encounter Summary ---
Author Organization [facility] Address [address] [place] [address] Care Team Providers Care Supervisor Grading Name Role Phone Md, Not Listed Primary Care Provider Unavailabl e Encounter Details Date Type Department Care Team (Latest Contact Info) Description 11/30/2024 8:39 AM CDT - 11/30/2024 11:59 PM CDT Hospital Encounter Imaging Center [facility] [address], [address] [place], [place] [address] Discharge Disposition: Returning Home/Self Care Social History Tobacco Use Types Packs/Day Years Used Date Smoking Tobacco: Some Days Cigars Smokeless Tobacco: Never Comments:2 cigars/week; quit smoking cigarettes 1989 Alcohol Use Standard Drinks/Week Comments Yes 5.8 (1 standard drink = 0.6 oz p ure alcohol) 1 shot a day Sex and Gender Information Value Date Recorded Sex Assigned at Not on file Legal Sex Male 5:02 AM CDT Gender Identity Not on file Sexual Orientation Not on file Occupation Industry Job Start Date Job End Date Not on file Not on file Not on file Not on file documented as of this encounter Medications at Time of Discharge acetaminophen (TYLENOL EXTRA STRENGTH) 500 mg Oral Tab Take 500 mg by mouth every 4 (four) hours as needed for Pain. aspirin 325 mg oral tablet Take 325 mg by mouth once daily. carbidopa 50 mg-levodopa 200 mg (SINEMET CR) 50-200 mg Oral TbSR Take 1 Tab by mouth four times a day. Carbidopa-Levodop a (PARCOPA) 10-100 mg Oral TbDL Take 1 Tab by mouth as needed. cholecalciferol, Vitamin D3, (VITAMIN D3) 1,000 unit Oral Tab Take 1,000 Units by mouth Once Daily. cyclobenzaprine (FLEXERIL) 5 mg Oral Tab Take 5 mg by mouth as needed (muscle cramping). 5 11/30/2014 digoxin (LANOXIN) 125 mcg (0.125 mg) oral tablet Take 0.125 mg by mouth once daily. finasteride (PROSCAR) 5 mg Oral Tab Take 5 mg by mouth once daily. furosemide (LASIX) 20 mg oral tablet Take 20 mg by mouth once daily. gabapentin (NEURONTIN) 300 mg oral capsule Take 600 mg by mouth three times a day. melatonin 3 mg Oral Tab Take 6 mg by mouth at bedtime. meloxicam (MOBIC) 15 mg oral tablet Take 15 mg by mouth once daily. oxyCODONE-acetami nophen (PERCOCET) 5-325 mg oral tablet Take 1-2 tablets by mouth every 4 (four) hours as needed for pain (pain). for pain 15 tablet 01/28/2020 pramipexole (MIRAPEX) 0.5 mg Oral Tab Take 0.5 mg by mouth four times a day. documented as of this encounter Plan of Treatment Not on file documented as of this encounter Procedures Procedure Name Priority Date/Time Associated Diagnosis Comments XR KUB Routine 11/30/2024 8:57 AM CDT Calculus of kidney documented in this encounter Results * XR KUB (11/30/2024 8:57 AM CDT) Anatomical Region Laterality Modality ABD/Pelvis Computed Radiogr aphy 11/30/2024 9:21 AM CDT Impressions 11/30/2024 9:32 AM CDT IMPRESSION: 1. Large bilateral kidney stones. Some morphology suggests developing staghorn stones. REPORT SIGNED BY DR. VANDANA OROZCO Narrative 11/30/2024 9:32 AM CDT EXAM: XR KUB DATE: 11/30/2024 8:41 CLINICAL DATA: N20.0 Calculus of kidney ADDITIONAL CLINICAL DATA: COMPARISON: December 18, 2022 NUMBER OF VIEWS: 2 FINDINGS: Left hip arthroplasty. Large stones present over the renal shadows bilaterally. The largest on the left is up to 2 cm in diameter. The largest on the right is about 17 mm in diameter. Portions of these stones suggest they are developing into staghorn calculi. Procedure Note Vandana Orozco MD - 11/30/2024 EXAM: XR KUB DATE: 11/30/2024 8:41 CLINICAL DATA: N20.0 Calculus of kidney ADDITIONAL CLINICAL DATA: COMPARISON: December 18, 2022 NUMBER OF VIEWS: 2 FINDINGS: Left hip arthroplasty. Large stones present over the renal shadowsbilaterally. The largest on the left is up to 2 cm in diameter. Thelargest on the right is about 17 mm in diameter. Portions of these stonessuggest they are developing into staghorn calculi. IMPRESSION IMPRESSION: 1. Large bilateral kidney stones. Some morphology suggests developingstaghorn stones. REPORT SIGNED BY DR. VANDANA OROZCO us Gerald Taylor MD XRAY ORDERABLE Final Result documented in this encounter Visit Diagnoses Diagnosis Calculus of kidney documented in this encounter Care Teams Supervisor Grading Relationship Specialty Start Date End Date , Not Listed no address PCP - General Internal Medicine 11/15/20 documented as of this encounter
[2024-12-31 22:13] LABS: Appearance Urine Turbid (Clear)
--- OUTSIDE RECORDS SUMMARY | 2025-01-01 00:12 | XMS_ITS ---
Author Name Auto Generated, Auto Generated Organization [employer] Functional Status No Results Mental Status No Results Allergies and Intolerances No Known Allergies Problems Active Concerns * Primary hypertension* Code: [id number] * Start Date: FriSep 28 13:26:00 EDT 2023 * End Date: * Text: * Generalized osteoarthritis* Code: [id number] * Start Date: FriDec 27 19:40:00 EDT 2024 * End Date: * Text: * Spinal stenosis of lumbar region, unspecified whether neurogenic claudication present* Code: [id number] * Start Date: FriOctober 10 01:43:00 EDT 2023 * End Date: * Text: * Gastroesophageal reflux disease with esophagitis, unspecified whether hemorrhage* Code: [id number] * Start Date: FriOctober 10 01:43:00 EDT 2023 * End Date: * Text: * Benign prostatic hyperplasia with lower urinary tract symptoms, symptom details unspecified* Code: [id number] * Start Date: FriOctober 10 01:43:00 EDT 2023 * End Date: * Text: * Health care maintenance* Code: [id number] * Start Date: FriDec 26 12:56:00 EDT 2024 * End Date: * Text: * History of arthroplasty of right shoulder* Code: [id number] * Start Date: FriNov 16 22:23:00 EDT 2023 * End Date: * Text: * Parkinson's disease, unspecified whether dyskinesia present, unspecified whether manifestations fluctuate* Code: [id number] * Start Date: FriDec 27 22:40:00 EDT 2024 * End Date: * Text: * Frailty syndrome in geriatric patient* Code: [id number] * Start Date: FriDec 27 19:41:00 EDT 2024 * End Date: * Text: * Insomnia* Code: [id number] * Start Date: FriDec 27 19:41:00 EDT 2024 * End Date: * Text: * Dementia* Code: [id number] * Start Date: FriDec 27 19:41:00 EDT 2024 * End Date: * Text: Reason for Referral Past Medical History
--- OUTSIDE RECORDS SUMMARY | 2025-01-01 00:13 | XMS_ITS | Clinical Summary ---
Author Organization [employer] Address [address] [place] [address] Care Team Providers Care Embossing Machine Operator Name Role Phone Bill oWlf MD Primary Care Provider [phone] Source Comments You are receiving this document [...] for each transition of care or referral. [employer] Allergies Active Allergy Reactions Criticality Noted Date [...] mg) by mouth daily. Active nystatin (MYCOSTATIN) 586804 UNIT/GM cream 1 Application two times daily [...] day. 540 Capsule 3 4 Active Multiple Vitamins-[place] als (PRESERVISION AREDS 2 OR) Take 1 [...] Administration Dates Next Due Influenza Vaccine (3+years) ([facility]) 007 Family History Medical History Relation [...] Comments Blood Pressure 142/79 07/26/2024 10:45 AM SHOT BAGGER Pulse 70 07/26/2024 10:45 AM SHOT BAGGER Temperature - - Respiratory Rate 16 01/05/2019 1:56 PM CDT Oxygen Saturation 95% 01/05/2019 1:56 PM CDT Inhaled Oxygen Concentration - - Weight 79.8 kg (176 lb) 07/26/2024 10:43 AM SHOT BAGGER shoes on Height 179.1 cm (5' 10.5) 07/10/2017 1:21 PM CS T Body Mass Index 24.9 07/10/2017 1:21 PM SHOT BAGGER Plan of Treatment Health Maintenance Due Date [...] this topic Insurance MEDICARE BCBS MEDICARE SUPPLEMENT [facility] MEDICARE SUPPLEMENT MEDICARE Advance Directives Documents on File Type Date Recorded Patient Celery Cutter Expl anation HEALTHCARE DIRECTIVE 10/26/2018 [facility] ARE DIRECTIVE 10/26/2018 Care Teams Embossing Machine Operator Relationship Specialty Start Date End Date Bill Wolf MD [address] [place] [address] PCP - General 07/28/19
--- OUTSIDE RECORDS SUMMARY | 2025-01-01 00:13 | XMS_ITS | Clinical Summary ---
Author Organization [facility] Address [address] [place] [address] Care Team Providers Care Private Secretary Name Role Phone Md, Not Listed Primary [...] 11:59 PM CDT Hospital Encounter Imaging Center [facility] [address], [address] [place] [address] Discharge Disposition: Returning Home/Self Care from Last [...] this topic Medical Devices Implanted Type Area Chip Drier Device Identifier Shelf Expiration Date Model / Serial / Lot Cement Bone Simplex W/Tobra - [id number] Implanted:Qt y: 2 on 02/07/2011 at [facility] Cement Right: Shoulder [place] Donny 02/08/2012 [id number] / / [id number] Log [id number] - Cart: Depuy Global Fracture Shoulder - 1 - Hd Depuy Hum [id number] Implanted:Qt y: 1 on 02/07/2011 at [facility] Head Right: Shoulder DePuy [employer]ynthe[employer] 06/09/2020 1128-52- 010 / / [id number] Log [id number] - Set: Synthes Lcp Sm Frag Ins/Imp* - 1 - Pltsynprxhum 3.5/6h/3h 241.901 Implanted:Qt y: 1 on 01/24/2011 at [facility] Plate Right: Shoulder Synthes 241.901 / / Log [id number] - Cart: Depuy Global Fracture Shoulder - 1 - Cement Depuy Sz 3 [id number] Implanted:Qt y: 1 on 02/07/2011 at [facility] Restrictor Right: Shoulder DePuy [employer] 04/09/2014 [id number] 000 / / [id number] Log [id number] - Set: Synthes Lcp Sm Frag Ins/Imp* - 1 - Scr Syn Crtx S/T3.5/34 204.834 Implanted:Qt y: 1 on 01/24/2011 at [facility] Screw/Mccoll Right: Shoulder Synthes 204.834 / / Log [id number] - Set: Synthes Lcp Sm Frag Ins/Imp* - 1 - Scrsynlckstd rv3.5/32 212.112 Implanted:Qt y: 1 on 01/24/2011 at [facility] Screw/Mccoll Right: Shoulder Synthes 212.112 / / Log [id number] - Set: Synthes Lcp Sm Frag Ins/Imp* - 1 - Scrsynlckstd rv3.5/50 212.121 Implanted:Qt y: 3 on 01/24/2011 at [facility] Screw/Mccoll Right: Shoulder Synthes 212.121 / / Log [id number] - Set: Synthes Lcp Sm Frag Ins/Imp* - 1 - Scrsynlckstd rv3.5/55 212.123 Implanted:Qt y: 4 on 01/24/2011 at [facility] Screw/Mccoll Right: Shoulder Synthes 212.123 / / Log [id number] - Cart: Depuy Global Fracture Shoulder - 1 - Stem Depuy Sz 12 112 Implanted:Qt y: 1 on 02/07/2011 at [facility] Stem Right: Shoulder DePuy [employer] 05/09/2017 000 / / [id number] Stent Ureteral Inlay 4.1sg67bs - [id number] Implanted:Qt y: 1 on 04/04/2017 by Gerald Taylor MD at [facility] Stent Left: Ureter [employer] 03/29/2021 [id number] / / [id number] Stent Ureteral Inlay 4.7fa74tz - [id number] Implanted:Qt y: 1 on 01/28/2020 by Gerald Taylor MD at [facility] Stent Left: Ureter [employer] 02/13/2023 [id number] / / [id number] Procedures Procedure Name Priority Date/Time Associated Diagnosis [...] CDT) Specimen Type 09/04/2015 7:27 PM CDT [facility] Cholesterol 143 <200 mg/dL 09/04/2015 7:27 PM CDT [facility] Triglycerides 43 <150 mg/dL 09/04/2015 7:27 PM CDT [facility] LDL Chol, Calc 92 <100 mg/dL 09/04/2015 7:27 PM CDT [facility] HDL Cholesterol 42 >40 mg/dL 09/04/2015 7:27 PM T [facility] Chol/HDL Ratio 3.4 0.0 - 4.9 09/04/2015 7:27 PM T [facility] Blood 09/04/2015 2:44 PM CDT 09/04/2015 7:00 PM CDT Narrative [facility] - 09/04/2015 7:27 PM CDT LDL CHOLESTEROL REFERENCE RANGES: (FOR PATIENTS W/O HEART DISEASE) <100 mg/dL = Optimal 100-129 mg/dL = Near/Above Optimal 130-159 mg/dL = Borderline High 160-189 mg/dL = High >/= 190 mg/dL = Very High us Sathish Arana MD CHEMISTRY ORDERABLE Final Result Performing Organization Address City/State/[facility] de Phone Number [facility] [address] [place] [address] * XR BONE DENSITY-SPINE & [...] was performed for your patient at the [facility] in [place] using a Hologic (Discovery) unit. FINDINGS: Lumbar [...] was performed for your patient at the [facility] in [place] using a Hologic (Discovery) unit. 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 Patient * Full Code Date Activated Date Inactivated Comments 11/06/2013 11:05 PM 11/07/2013 8:29 PM Question Answer Comments How was code status determined? Patient Care Teams Private Secretary Relationship Specialty Start Date End Date , Not Listed no address PCP - General Internal Medicine 11/15/20
--- OUTSIDE RECORDS SUMMARY | 2025-01-01 00:13 | XMS_ITS | Continuity of Care Document ---
Author Organization [place] [facility] Address [address] [place] [address] Care Team Providers Care Natural Resources Technician Name Role Phone LIV WHITE Primary Care Provider [phone] Assessment No assessment recorded. Plan of Treatment Reminders Order Date Submit Date Provider Last Modified By Organization Details Last Modified Time Details Appointments None recorded. Lab None recorded. Referral None recorded. Procedures None recorded. Surgeries None recorded. Imaging None recorded. Medication Orders finasteride 5 mg tablet 2024 025 [facility] [address] [address] [employer], [address] [facility] [address], [place], [address], 10:48:13 Patient TargetsNo targets recorded. Patient Instructions Encounter Date Encounter Id Patient Instructions Last Modified By Organization Details Last Modified Time 11/30/2024 [id number] I reviewed and discussed today's KUB. He [...] bladd er No observ ation record ed. [facility] [address], [place], [address], 12/01/2024 10:14:09 Result Notes None recorded. Problems Name Problem SNOMED Code Status Onset Date Resolution Date Notes Provider Name and Address Organization Details Recorded Time Benign prostatic hyperplas ia 165366000 Active 2012 600.00 : BPH (HYPERTROP HY) WITHOUT URINARY OBSTRUCTIO - Notes:ON PROSCAR Not Available [facility] 0 02:04:09 Kidney stone 13231212 Active 2012 592.0 : CALCULUS-K IDNEY - Notes:Hx ESWL and PCNL hx DUPLICATED SYSTEM-FOL LOWED BY DR THOMPSON-ON HCTZ AND LOW OXALATE Not Available [facility] 0 02:04:09 Disorder of kidney and/or ureter 841032532 Active 2013 593.9 : RENAL MASS/LESIO N/INSUFFIC IENC/URETE R MASS - Notes:mass found on Trauma CT--2cm right renal mass Not Available 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 0 02:04:09 Problem Notes None recorded. Procedures Surgical History Date Name Laterality Status Provider Name and Address Organization Details Recorded Time 1 Colonoscopy completed Gerald Taylor Jr, MD [address] [facility], [place], [address], [facility] 11/15/2020 11:51:44 Imaging Results None recorded. Procedure Notes None recorded. Medical Equipment None Reported. Allergies Allergen ID Allergen Name Allergen Category Reaction Reaction Severity Criticality Documentation Date Start Date Code Code System Note Provider Name and Address Organization Details Recorded Time 219932 morphine medicatio n Not available Not available Not available 11/25/20192012 7052 RxNorm Not Available [facility] 0 00:44:54 134522 UroXatral medicatio n Not available Not available Not available 11/25/20192012 83088 8 RxNorm Not Available [facility] 0 00:44:54 Medications Name Sig Start [...] Updated DateTime 11/30/2024 177.8 cm 24.4 kg/m2 76482.7 g Gerald Taylor Jr, MD [address] [facility] [address], [place], [address], [facility] 11/30/2024 10:15:43 Social History Question Answer Notes LastModified by Organizat ion Details LastModified Time Tobacco Smoking Status Current Some Day Smoker Eduardo ni, [facility] 12/08/2019 16:20:11 Race White Information no t available 12/18/2022 Ethnicity Not /Lati no Information not available 12/18/2022 Preferred Language Kazakh Information not available 12/18/2022 What Was The [...] Response Diabetes N Sexually Transmitted Infection N Bleeding Disorder N Other N High Blood Pressure N Kidney Stones Y Cancer Y Lung Disease N Depression N High Cholesterol N GERD/Acid Reflux N Heart Disease N Immunizations Vaccine Type Date Status Note Provider Nam e and Address Organization Details Recorded Time pneumococcal polysaccharide PPV23 5 completed Not Available [facility] 11/25/2019 00:42:27 Influenza, injectable,quadriva lent, preservative free, pediatric 3 completed Cate Legois null, [facility] 01/01/2024 16:24:21 zoster recombinant 9 [facility] 16[facility]24:21 Influenza, high-dose, quadrivalent, PF 1 [facility] 16:24:21 COVID-19, mRNA, LNP-S, PF, 100 mcg/0.5mL dose or 50 mcg/0.25mL dose 1 completed Cate Legois null [facility] 01/01/2024 16:24:21 COVID-19, mRNA, LNP-S, PF, 100 mcg/0.5mL dose or 50 mcg/0.25mL dose 1 completed Cate Legois null, [facility] 01/01/2024 16:24:21 COVID-19, mRNA, LNP-S, PF, 30 mcg/0.3 mL dose 1 completed Cate Legois null, [facility] 01/01/2024 16:24:21 pneumococcal polysaccharide PPV23 9 completed Cate Legois null, [facility] 01/01/2024 16:24:21 influenza, unspecified formulation 2 completed Cate Legois null, [facility] 01/01/2024 16:24:21 Pneumococcal conjugate PCV 13 9 completed Cate Legois null, [facility] 01/01/2024 16:24:21 Influenza, high-dose, trivalent, PF 3 completed Cate Legois null, [facility] 01/01/2024 16:24:21 Influenza, high-dose, trivalent, PF 9 completed Cate Legois null, [facility] 01/01/2024 16:24:21 Influenza, high-dose, trivalent, PF 8 completed Cate Legois null, [facility] 01/01/2024 16:24:21 Influenza, split virus, trivalent, preservative 7 completed Cate Legois null, [facility] 01/01/2024 16:24:21 Influenza, split virus, trivalent, preservative 4 completed Cate Legois null, [facility] 01/01/2024 16:24:21 Influenza, split virus, trivalent, PF 0 completed Cate Legois null, [facility] 01/01/2024 16:24:21 Influenza, split virus, trivalent, PF 6 completed Cate Legois null, [facility] 01/01/2024 16:24:21 Influenza, split virus, trivalent, PF 5 completed Cate Legois null, [facility] 01/01/2024 16:24:21 Influenza, split virus, trivalent, PF 1 completed Cate Legois null, [facility] 01/01/2024 16:24:21 Novel gahsfaoms-H0P9-49, preservative-free 9 completed Cate Legois null, [facility] 01/01/2024 16:24:21 Influenza, split virus, quadrivalent, PF 0 completed Cate Legois null, [facility] 01/01/2024 16:24:21 Influenza, split virus, quadrivalent, PF 9 completed Cate Legois null, [facility] 01/01/2024 16:24:21 zoster recombinant 3 completed Cate Legois null, [facility] 01/01/2024 16:24:40 Influenza, high-dose, quadrivalent, PF 2 completed Cate Legois null, [facility] 01/01/2024 16:24:40 COVID-19, mRNA, LNP-S, bivalent, PF, 50 mcg/0.5 mL or 25mcg/0.25 mL dose 2 completed Cate Legois null, [facility] 01/01/2024 16:24:40 Influenza, adjuvanted, quadrivalent, PF 3 completed Not Available [facility] 11/30/2024 10:11:19 zoster recombinant 3 completed Not Available [facility] 11/30/2024 10:11:19 Influenza, adjuvanted, trivalent, PF 4 completed Not Available [facility] 11/30/2024 10:11:19 COVID-19, mRNA, LNP-S, PF, carlo-sucrose, 30 mcg/0.3 mL 4 completed Not Available [facility] 11/30/2024 10:11:19 Past Encounters Encounter ID Performer Location Encounter Start Date Encounter Closed Date Diagnosis/Indication Diagnosis SNOMED-CT Code Diagnosis ICD10 Code Diagnosis Note [id number] Gerald Taylor Jr, MD [facility] [address] [address],[address] [place] [address] 11/30/2024 10:07:30 12/15/2024 10:13:55 Kidney stone 11334672 N20.0 Benign pro static hyperplasia 927991678 N40.1 Health Concerns Section Related Observation LastModified by Organization Rajesh mari LastModified Time None Recorded Concern Status LastModified by Organization Details LastModified Time None Recorded Payers Encounter Date Sequence Insurance Name Policy Number Policy Vanegas Covered Member ID Vanegas Member ID Guarantor Name 11/30/2024 1 [place]: [employer] Jose Daniel Burgos [id number] Jose Daniel Burgos 11/30/2024 2 [place] [facility] (MEDICARE SUPPLEMENT) [id number] Jose Daniel Bugros [id number] Jose Daniel Burgos Notes Date Note Type Note Provider Name and Address Organization Details Recorded Time 11/30/2024 text/html Annual stone recheck.No stone pain or events.KUB today shows bilateral stones L>R. Gerald Taylor Jr, MD [address] [place] [address],[address], [place], [address], [facility] 11/30/2024 10:48:26
--- OUTSIDE RECORDS SUMMARY | 2025-01-01 00:13 | XMS_ITS | Clinical Summary ---
Author Organization [facility] Address [address] [place] [address] Care Team Providers Care Electronic Prepress Technician Name Role Phone Bill Wolf MD Primary Care Provider Samuel Florez MD Unavailable Allergies Active Allergy Reactions Criticality Noted Date [...] if needed for Sleep. 0 3 Active ci-xzd-[place]-vit D-coqtcf-byovmkb (PreserVision AREDS 2 Plus MV) 200 mcg-15 [...] Encounters Date Type Department Care Team Description 2024 Lab Requisition [facility] [phone] Ebenezer Oscar MD 12/28/2024 Lab Requisition [facility] [phone] Ebenezer Oscar MD 12/05/[address] [facility] [place] [address] Jose Daniel Irene MD Refill Request (Valsartan) [...] on file Legal Sex Male 6:14 AM RELAY SHOP TESTER Gender Identity Male 05/19/2024 2:55 PM RELAY SHOP TESTER Sexual Orientation Not on file Obstetrics History Last Filed Vital Signs Vital Sign Reading Time Taken Comments Blood Pressure 142/80 05/20/2024 1:59 PM RELAY SHOP TESTER Pulse 51 02/05/2024 12:49 PM CDT Temperature 36.8 C (98.3 F) 05/08/2017 2:20 PM RELAY SHOP TESTER Respiratory Rate 14 08/07/2020 9:26 AM RELAY SHOP TESTER Oxygen Saturation 96% 02/05/2024 12:49 PM CDT Inhaled Oxygen Concentration - - Weight 78.2 kg (172 lb 6.4 oz) 02/05/2024 12:49 PM CDT Height 172.7 cm (5' 8) 03/04/2023 8:09 AM CDT Body Mass Index 26.21 03/04/2023 8:09 AM CDT Plan of Treatment Upcoming Encounters Date Type Department Care Team (Late st Contact Info) Description 05/19/2025 12:00 PM RELAY SHOP TESTER Office Visit [address] [place] [address] Samuel Florez MD [address] [place] [address] [place] [address] Health Maintenance Due Date Last Done Comments [...] STONE PROTOCOL WO Routine 05/27/2024 1:19 PM RELAY SHOP TESTER History of kidney stones from Last 3 Months or Most Recently Relevant to Health Maintenance Results * CT ABDOMEN PELVIS STONE PROTOCOL WO (05/27/2024 1:19 PM RELAY SHOP TESTER) Anatomical Region Laterality Modality Abdomen, Pelvis, AORTA, LIVER, SPLEEN Computed Tomography 05/27/2024 9:05 PM RELAY SHOP TESTER Narrative 05/27/2024 9:05 PM RELAY SHOP TESTER For Patients: As a result of the Cures Act, medical imaging exams and procedure [...] and vascular: Non aneurysmal abdominal aorta with onlcivkm-we-zbjafc calcific atherosclerotic burden. Lymph nodes: No enlarged [...] on the left is unchanged dating back [id number]. Otherwise unremarkable. Gastrointestinal: Large sliding hiatal hernia. [...] Retroperitoneum and vascular: Non aneurysmal abdominal aorta ccbimrwdpzip-ec-knbdrd calcific atherosclerotic burden. Lymph nodes: No enlarged [...] PART B HB ONLY MEDICARE PB ONLY [facility] Care Teams Electronic Prepress Technician Relationship Specialty Start Date End Date Bill Wolf MD [address] [place] [address] PCP - General Internal Medicine 08/24/18 Samuel Florez MD [address] [place], [place] [address]em[place] [address] Surgery - Urology 05/20/24
--- OUTSIDE RECORDS SUMMARY | 2025-01-01 00:14 | XMS_ITS | Encounter Summary ---
Author Organization [facility] Address [address] [place] [address] Care Team Providers Care Medical Case Manager Name Role Phone Elsewhere, Pcp Primary Care Provider Unavailabl e Encounter Details Date Type Department Care Team (Late st Contact Info) Description 11/06/2024 CPAP Download Remote Patient Monitoring [facility] [address] [place] [address] [facility], Provider, Social History Tobacco Use Types Packs/Day Years Used Date Smoking Tobacco: Former Cigarettes Q uit: 06/23/2006 Cigars Smokeless Tobacco: Never Comments:1-2 cigars/week Alcohol Use Standard Drinks/Week Comments Not Currently 3 (1 standard drink = 0.6 oz pur e alcohol) [facility] Utilities Answer Date Recorded In the past 12 months has e [employer]), gas, oil, or water [employer] threatened to shut off services in your [...] your living situation today? I have a [facility] place to live 11/17/2023 Education Answer Date Recorded What is the highest level of school you have completed or the highest degree you have received? Bachelor's degree (e.g., BA, AB, BS) 06/28/2019 Sex and Gender Information Value Date Recorded Sex Assigned at Male 05/12/2021 8:50 AM ROLL THREADER OPERATOR Legal Sex Male 4:36 PM ROLL THREADER OPERATOR Gender Identity Male 05/12/2021 8:50 AM ROLL THREADER OPERATOR Sexual Orientation Straight 05/12/2021 8: 50 AM ROLL THREADER OPERATOR documented as of this encounter Plan of Treatment Not on file documented as of this encounter Visit Diagnoses Not on filedocumented in this encounter Care Teams Medical Case Manager Relationship Specialty Start Date End Date Elsewhere, Pcp PCP - General Family Medicine 03/21/21 documented as of this encounter
--- OUTSIDE RECORDS SUMMARY | 2025-01-01 00:14 | XMS_ITS | Clinical Summary ---
Author Organization [facility] Address [address] [place] [address] Care Team Providers Care Refrigeration Engineer Name Role Phone Elsewhere, Pcp Primary Care Provider Unavailabl e Source Comments Patient records contain information from all sites at [facility]. For routine questions regarding patient records, call [phone] during business hours, M-F 8:00 AM - 5:00 PM Central Time. Record requests for emergency care only can be directed to [phone] at any time.[facility] Allergies Active Allergy Reactions Criticality Noted Date [...] tablet by mouth daily. 1 Active vit C,C-Fq-ibiwy-benito tein-zeaxan (PreserVision AREDS-2) 250-90-40-1 mg per capsule [...] (06/28/2019): Added automatically from request for surgery [id number] Atrial Fibrillation Unspecified 02/16/2019 Cancer Renal Cell [...] Download Remote Patient Monitoring [facility] [address] [place] [address] [facility], ProviderMD 11/06/2024 CPAP Download Remote Patient Monitoring [facility] [address] [place] [address] [facility], ProviderMD 10/06/2024 CPAP Download Remote Patient Monitoring [address] [place] [address] [facility], MD Kai from Last 3 Months Immunizations [...] 2 Alive Father David Burgos (Age 86) [place] Father's Brother 1 Father's Brother 2 Reese [...] drink = 0.6 oz pur e alcohol) [facility] Utilities Answer Date Recorded In the past 12 months has [employer], oil, or water [employer] threatened to shut off services in your [...] your living situation today? I have a [facility] place to live 11/17/2023 Education Answer Date Recorded What is the highest level of school you have completed or the highest degree you have received? Bachelor's degree (e.g., BA, AB, BS) 06/28/2019 Sex and Gender Information Value Date Recorded Sex Assigned at Male 05/12/2021 8:50 AM ASSOCIATE WEB DEVELOPER Legal Sex Male 4:36 PM ASSOCIATE WEB DEVELOPER Gender Identity Male 05/12/2021 8:50 AM ASSOCIATE WEB DEVELOPER Sexual Orientation Straight 05/12/2021 8: 50 AM ASSOCIATE WEB DEVELOPER Last Filed Vital Signs Vital Sign Reading [...] this topic Medical Devices Implanted Type Area Pipe Turner Device Identifier Shelf Expiration Date Model / Serial / Lot Ankle Implant Ankle Implant Left: Ankle Cmnt Bn Hi Visc Pmma 40 - [id number] Implanted:Qty: 1 on 07/15/2019 by Darrion Vigil M.D., Ph.D. at [facility] Bone Cement Right: Shoulder Kit 6191-1-001 / / Humerus Proximal Right W O Cuff - Garcia [id number] Implanted:Qty: 1 on 02/28/2014 Bone or Tissue Other/Leg acy - See Implant Descripti on [employer] Description:Device Manufactu rer - [employer]. Body Location - ?. allograft prostetic composite. Device Status Text - [id number]. Biomet Pin Shanna [id number] - Garcia [id number] Implanted:Qty: 1 on 07/06/2012 Hardware e.g. pins/scre ws/rods BioMet Description:Device Manufactu rer - Biomet Inc. Device Status Text - HARDWARE-970977. Screw Biomet Fixed Locking 4.75 X 25 - Garcia [id number] Implanted:Qty: 1 on 07/06/2012 Hardware e.g. pins/scre ws/rods Other/Leg acy - See Implant Descripti on BioMet Description:Device Manufactu rer - Biomet Inc. Body Location - Other. Right. Device Status Text - HARDWARE-766600. Screw Biomet Fixed Locking 4.75 X 15 - Garcia [id number] Implanted:Qty: 1 on 07/06/2012 Hardware e.g. pins/scre ws/rods Other/Leg acy - See Implant Descripti on BioMet Description:Device Manufactu rer - Biomet Inc. Body Location - Other. Right. Device Status Text - HARDWARE-855694. Screw Biomet Fixed Locking 4.75 X 15 - Garcia [id number] Implanted:Qty: 1 on 07/06/2012 Hardware e.g. pins/scre ws/rods Other/Leg acy - See Implant Descripti on BioMet Description:Device Manufactu rer - Biomet Inc. Body Location - Other. Right. Device Status Text - HARDWARE-942002. Screw Biomet Fixed Locking 4.75 X 30 - Garcia [id number] Implanted:Qty: 1 on 07/06/2012 Hardware e.g. pins/scre ws/rods Other/Leg acy - See Implant Descripti on BioMet Description:Device Manufactu rer - Biomet Inc. Body Location - Other. Right. Device Status Text - HARDWARE-627087. Syn-Screw Locking 3.5x28 - Garcia [id number] Implanted:Qty: 2 on 06/16/2013 Hardware e.g. pins/scre ws/rods Depuy Synthes Description:Device Manufactu rer - Synthes. Device Status Text - HARDWARE-43512. Pin Shanna Threaded Single End 3 32 - Garcia [id number] Implanted:Qty: 1 on 06/16/2013 Hardware e.g. pins/scre ws/rods [place] Description:Device Manufactu rer - Lamsa Donny.. Device Status Text - HARDWARE-9485. Syn-Screw Sylvester Self Tap 3.5 X 26 - Garcia [id number] Implanted:Qty: 2 on 06/16/2013 Hardware e.g. pins/scre ws/rods Depuy Synthes Description:Device Manufactu rer - Synthes. Device Status Text - HARDWARE-45355. Syn-Screw Sylvester Self Tap 3.5 X 28 - Garcia [id number] Implanted:Qty: 3 on 06/16/2013 Hardware e.g. pins/scre ws/rods Depuy Synthes Description:Device Manufactu rer - Synthes. Device Status Text - HARDWARE-86502. Dion Wire Loop Closed 30cm - Garcia [id number] Implanted:Qty: 2 on 06/16/2013 Hardware e.g. pins/scre ws/rods Cassidy Biomet Description:Device Manufactu rer - Cassidy. Device Status Text - HARDWARE-1186. Syn-Screw Locking 3.5x30 - Garcia [id number] Implanted:Qty: 1 on 06/16/2013 Hardware e.g. pins/scre ws/rods Depuy Synthes Description:Device Manufactu rer - Synthes. Device Status Text - HARDWARE-72323. Syn-Screw Locking 3.5x22 - Garcia [id number] Implanted:Qty: 1 on 06/16/2013 Hardware e.g. pins/scre ws/rods Depuy Synthes Description:Device Manufactu rer - Synthes. Device Status Text - HARDWARE-61890. Syn-Screw Locking 3.5x12 - Garica [id number] Implanted:Qty: 1 on 06/16/2013 Hardware e.g. pins/scre ws/rods Depuy Synthes Description:Device Manufactu rer - Synthes. Device Status Text - HARDWARE-29637. Syn-Screw Locking 3.5x26 - Garcia [id number] Implanted:Qty: 1 on 06/16/2013 Hardware e.g. pins/scre ws/rods Depuy Synthes Description:Device Manufactu rer - Synthes. Device Status Text - HARDWARE-46304. Lcp-Plate 3.5 X 12ho 163mm - Garcia [id number] Implanted:Qty: 1 on 06/16/2013 Hardware e.g. pins/scre ws/rods Depuy Synthes Description:Device Manufactu rer - Synthes. Device Status Text - HARDWARE-27375. Syn-Screw Sylvester Self Tap 3.5 X 34 - Garcia [id number] Implanted:Qty: 1 on 02/28/2014 Hardware e.g. pins/scre ws/rods Depuy Synthes Description:Device Manufactu rer - Synthes. Device Status Text - HARDWARE-20614. Syn-Screw Sylvester Self Tap 3.5 X 32 - Garcia [id number] Implanted:Qty: 1 on 02/28/2014 Hardware e.g. pins/scre ws/rods Depuy Synthes Description:Device Manufactu rer - Synthes. Device Status Text - HARDWARE-04963. Syn-Screw Locking 3.5x28 - Garcia [id number] Implanted:Qty: 1 on 02/28/2014 Hardware e.g. pins/scre ws/rods Depuy Synthes Description:Device Manufactu rer - Synthes. Device Status Text - HARDWARE-99399. Sm Frag-Screw Canc Full 4 X 30 - Garcia [id number] Implanted:Qty: 1 on 02/28/2014 Hardware e.g. pins/scre ws/rods Depuy Synthes Description:Device Manufactu rer - Synthes. Device Status Text - HARDWARE-33779. Lcp-Plate 3.5 X 14ho 189mm - Garcia [id number] Implanted:Qty: 1 on 02/28/2014 Hardware e.g. pins/scre ws/rods Depuy Synthes Description:Device Manufactu rer - Synthes. Device Status Text - HARDWARE-84025. Syn-Screw Sylvester Self Tap 3.5 X 26 - Garcia [id number] Implanted:Qty: 3 on 02/28/2014 Hardware e.g. pins/scre ws/rods Depuy Synthes Description:Device Manufactu rer - Synthes. Device Status Text - HARDWARE-13847. Syn-Screw Sylvester Self Tap 3.5 X 28 - Garcia [id number] Implanted:Qty: 1 on 02/28/2014 Hardware e.g. pins/scre ws/rods Depuy Synthes Description:Device Manufactu rer - Synthes. Device Status Text - HARDWARE-31430. Syn-Screw Sylvester Self Tap 3.5 X 45 - Garcia [id number] Implanted:Qty: 1 on 02/28/2014 Hardware e.g. pins/scre ws/rods Depuy Synthes Description:Device Manufactu [employer] - [employer]. Device Status Text - HARDWARE-48000. Syn-Screw Sylvester Self Tap 3.5 X 30 - Garcia [id number] Implanted:Qty: 1 on 02/28/2014 Hardware e.g. pins/scre ws/rods Depuy Synthes Description:Device Manufactu [employer] - [employer]. Device Status Text - HARDWARE-13813. Dion Wire Loop Closed 30cm - Garcia [id number] Implanted:Qty: 1 on 02/28/2014 Hardware e.g. pins/scre ws/rods Cassidy Biomet Description:Device Manufactu rer - Cassidy. Device Status Text - HARDWARE-1186. Syn-Screw Sylvester Self Tap 3.5 X 40 - Garcia [id number] Implanted:Qty: 1 on 02/28/2014 Hardware e.g. pins/scre ws/rods Depuy Synthes Description:Device Manufactu Aviso, Inc.. Device Status Text - HARDWARE-03689. Hip Implant Hip Implant Left: Hip Knee Implant Knee Implant Left: Knee Mesh Or Patch Mesh or Patch Bilateral : Groin Plug Bone [place] 24mm - Garcia [id number] Implanted:Qty: 1 on 06/16/2013 Mesh or Patch [place] Description:Device Manufactu rer - [place] Donny.. Device Status Text - MESHPATCH-470. Cement Bone Large - Garcia [id number] Implanted:Qty: 1 on 07/06/2012 Misc Other [place] Description:Device Manufactu rer - [place] Donny.. Device Status Text - MISCOTHER-2840. Cement Bone Large - Garcia 2840 Implanted:Qty: 1 on 06/16/2013 Misc Other [place] Description:Device Manufactu rer - Kit Donny.. Device Status Text - MISCOTHER-2840. Cement Bone Large - Garcia [id number] Implanted:Qty: 2 on 02/28/2014 Mis Other Kit Description:Device Manufactu rer - Kit Donny.. Device Status Text - MISCOTHER-2840. Biomet Central Screw 6.5mm X 30mm - Garcia [id number] Implanted:Qty: 1 on 07/06/2012 Shoulder Implant Other/Leg acy - See Implant Descripti on BioMet Description:Device Manufactu rer - Biomet Inc. Body Location - Other. Right. Device Status Text - SHOULDER-484709. Biomet Glenoid Baseplate Mini W Adaptor - Garcia [id number] Implanted:Qty: 1 on 07/06/2012 Shoulder Implant Other/Leg acy - See Implant Descripti on BioMet Description:Device Manufactu rer - Biomet Inc. Body Location - Other. Right. Device Status Text - SHOULDER-657293. Bsplt Glnd Cmp Tprd 25 - [id number] Implanted:Qty: 1 on 07/15/2019 by Darrion Vigil M.D., Ph.D. at [facility] Shoulder Implant Right: Shoulder Cassidy Biomet 06/22/2028 [id number] / / [id number] Comp Glnd Vrs Dl 40 - [id number] Implanted:Qty: 1 on 07/15/2019 by Darrion Vigil M.D., Ph.D. at [facility] Shoulder Implant Right: Shoulder Cassidy Biomet 05/08/2029 [id number] / / [id number] Equinoxe Distal Stem 9mm X 80mm Implanted:Qty: 1 on 07/15/2019 by Darrion Vigil M.D., Ph.D. at [facility] Shoulder Implant Right: Shoulder Exactech Inc [id number] 02/14/2029 308-01-09 / [id number] / Equinoxe Distal Fixation Ring Implanted:Qty: 1 on 07/15/2019 by Darrion Vigil M.D., Ph.D. at [facility] Shoulder Implant Right: Shoulder Exactech Inc [id number] 06/24/2022 308-- / [id number] / Equinoxe Middle Segment 50mm Implanted:Qty: 1 on 07/15/2019 by Darrion Vigil M.D., Ph.D. at [facility] Shoulder Implant Right: Shoulder Exactech Inc [id number] 06/24/2022 30850 / [id number] / Equinoxe Middle Segment 75mm Implanted:Qty: 1 on 07/15/2019 by Darrion Vigil M.D., Ph.D. at [facility] Shoulder Implant Right: Shoulder Exactech Inc [id number] 05/23/2029 308- / [id number] / Equinoxe Proximal Body Medium +0mm Implanted:Qty: 1 on 07/15/2019 by Darrion Vigil M.D., Ph.D. at [facility] Shoulder Implant Right: Shoulder Exactech Inc [id number] 11/17/2028 308-10- / [id number] / Taper Locking Screw 125 Yellow Implanted:Qty: 1 on 07/15/2019 by Darrion Vigil M.D., Ph.D. at [facility] Shoulder Implant Right: Shoulder Exactech Inc [id number] 02/09/2025 30816 / [id number] / Equinoxe 40mm Humeral Liner +0 Implanted:Qty: 1 on 07/15/2019 by Darrion Vigil M.D., Ph.D. at [facility] Shoulder Implant Right: Shoulder Exactech Inc [id number] 01/24/2024 320-40-00 / [id number] / Equinoxe Fixed Angle Torque Defining Screw Kit Implanted:Qty: 1 on 07/15/2019 by Darrion Vigil M.D., Ph.D. at [facility] Shoulder Implant Right: Shoulder Exactech Inc [id number] 05/23/2024 320-20-00 / [id number] / Equinoxe Humeral Adapter Tray Implanted:Qty: 1 on 07/15/2019 by Darrion Vigil M.D., Ph.D. at [facility] Shoulder Implant Right: Shoulder Exactech Inc [id number] 06/06/2029 320-10-00 / [id number] / Explanted Type Area Pipe Turner Device Identifier Shelf Expiration Date Model / Serial / Lot Biomet Humeral Bearing +3 44m X 41mm - Garcia [id number] Implanted:Qty: 1 on 02/28/2014 Explanted:Qty: 1 on 07/15/2019 by Darrion Vigil M.D., Ph.D. at [facility] Shoulder Implant Right: Other/Legacy - See Implant Description BioMet Description:Device Manufactu rer - Biomet Inc. Body Location - Right. Device Status Text - SHOULDER-879458. Bio. Comp Primary Mini Stem 8mm - Garcia [id number] Implanted:Qty: 1 on 02/28/2014 Explanted:Qty: 1 on 07/15/2019 by Darrion Vigil M.D., Ph.D. at [facility] Shoulder Implant Right: Other/Legacy - See Implant Description BioMet Description:Device Manufactu rer - Biomet Inc. Body Location - Right. Device Status Text - SHOULDER-869693. Biomet Hum Tray Comp Rev 44mm +10 - Garcia [id number] Implanted:Qty: 1 on 02/28/2014 Explanted:Qty: 1 on 07/15/2019 by Darrion Vigil M.D., Ph.D. at [facility] Shoulder Implant Right: Other/Legacy - See Implant Description BioMet Description:Device Manufactu rer - Biomet Inc. Body Location - Right. Device Status Text - SHOULDER-106081. Biomet Glenospher Std. 41mm - Garcia [id number] Implanted:Qty: 1 on 07/06/2012 Explanted:Qty: 1 on 07/15/2019 by Darrion Vigil M.D., Ph.D. at [facility] Shoulder Implant Other/Legacy - See Implant Description BioMet Description:Device Manufactu rer - Cybits Inc. Body Location - Other. Right. Device Status Text - SHOULDER-524441. Procedures Procedure Name Priority Date/Time Associated Diagnosis [...] Martin M.D. LAB BLOOD ADD-ON Final Result [facility] [address] [place] [address], [place] DTL [facility] [address] [place] [address] from Last 3 Months or Most Recently Relevant to Health Maintenance Insurance MEDICARE [facility] Advance Directives For more information, please contact: [phone] * Full Code (Latest Code Status on File) Date Activated Date Inactivated Comments 11/07/2023 4:55 PM 11/11/2023 3:13 PM Question Answer Comments Full Code: Not Discussed Due to: Not medically appropriate Care Teams Refrigeration Engineer Relationship Specialty Start Date End Date Elsewhere, Pcp PCP - General Family Medicine 03/21/21
--- OUTSIDE RECORDS SUMMARY | 2025-01-01 00:14 | XMS_ITS | Encounter Summary ---
Author Organization [facility] Address [address] [place] [address] Care Team Providers Care Warehouse Worker 2Nd Shift Name Role Phone Elsewhere, Pcp Primary Care Provider Unavailabl e Encounter Details Date Type Department Care Team (Late st Contact Info) Description 11/05/2018 [facility] [address] [place] [address] García Lopez M.D. [address] [place] [address] Obstructive Sleep Apnea Adult (Primary Dx); Fibrillation Atrial (HCC); Parkinson Disease (HCC) Social History Tobacco Use Types Packs/Day Years Used Date Smoking Tobacco: Every Day Sex and Gender Information Value Date Recorded Sex Assigned at Male 05/12/2021 8:50 AM PARTNER MANAGEMENT CONSULTANT Legal Sex Male 4:36 PM PARTNER MANAGEMENT CONSULTANT Gender Identity Male 05/12/2021 8:50 AM PARTNER MANAGEMENT CONSULTANT Sexual Orientation Straight 05/12/2021 8: 50 AM PARTNER MANAGEMENT CONSULTANT documented as of this encounter Plan of [...] documented as of this encounter Care Teams Warehouse Worker 2Nd Shift Relationship Specialty Start Date End Date Elsewhere, Pcp PCP - General Family Medicine 03/21/21 documented as of this encounter
--- OUTSIDE RECORDS SUMMARY | 2025-01-01 00:14 | XMS_ITS | Encounter Summary ---
Author Organization [facility] Address [address] [place] [id number] Care Team Providers Care Oracle Application Architect Name Role Phone Elsewhere, Pcp Primary Care Provider Unavailabl e Encounter Details Date Type Department Care Team (Late st Contact Info) Description 12/07/2024 CPAP Download Remote Patient Monitoring [facility] [place] [address] [facility], Provider, Social History Tobacco Use Types Packs/Day Years Used Date Smoking Tobacco: Former Cigarettes Q uit: 06/23/2006 Cigars Smokeless Tobacco: Never Comments:1-2 cigars/week Alcohol Use Standard Drinks/Week Comments Not Currently 3 (1 standard drink = 0.6 oz pur e alcohol) [facility] Utilities Answer Date Recorded In the past 12 months has e [employer], gas, oil, or water [employer] threatened to shut off services in your [...] your living situation today? I have a [facility] place to live 11/17/2023 Education Answer Date Recorded What is the highest level of school you have completed or the highest degree you have received? Bachelor's degree (e.g., BA, AB, BS) 06/28/2019 Sex and Gender Information Value Date Recorded Sex Assigned at Male 05/12/2021 8:50 AM COMPRESSED AIR PILE DRIVER OPERATOR Legal Sex Male 4:36 PM COMPRESSED AIR PILE DRIVER OPERATOR Gender Identity Male 05/12/2021 8:50 AM COMPRESSED AIR PILE DRIVER OPERATOR Sexual Orientation Straight 05/12/2021 8: 50 AM COMPRESSED AIR PILE DRIVER OPERATOR documented as of this encounter Plan of Treatment Not on file documented as of this encounter Visit Diagnoses Not on filedocumented in this encounter Care Teams Oracle Application Architect Relationship Specialty Start Date End Date Elsewhere, Pcp PCP - General Family Medicine 03/21/21 documented as of this encounter
--- OUTSIDE RECORDS SUMMARY | 2025-01-01 00:14 | XMS_ITS | Data Portability ---
Author Organization [facility], [facility] Address [address] [place] [address] Care Team Providers Care Can Carrier Name Role Phone CHRISTOPHER PECK Primary Care Provider Assessment No assessment recorded. Plan of Treatment Reminders Order Date Submit Date Provider Last Modified By Organization Details Last Modified Time Details Appointments None recorded. Lab None recorded. Referral None recorded. Procedures None recorded. Surgeries None recorded. Imaging None recorded. Medication Orders finasteride 5 mg tablet 2024 025 [id number] [employer], [address] [place] [address] [address] [place], [address], 5 10:48:13 finasteride 5 mg tablet 2022 023 [id number] [employer], [facility] [address] [place], [address], 14:26:40 finasteride 5 mg tablet 2021 022 [facility] [id number] [facility] [employer], [address] [place] [address], [address], 14:01:53 Patient TargetsNo targets recorded. Patient Instructions Encounter Date Encounter Id Patient Instructions Last Modified By Organization Details Last Modified Time 05/17/2020 [id number] Reviewed imaging . One stone remains- report pending. See in 6 months with KUB. Not available 05/17/2020 12:03:47 11/15/2020 [id number] KUB appears unchanged. He is doing well. See in one year with KUB or sooner for problems. Not available 11/15/2020 12:11:09 12/17/2021 [id number] Stones appear stable. Renewed Finasteride 5mg daily. See in one year with KUB or sooner for problems. Not available 12/17/2021 14:05:35 12/18/2022 [id number] I reviewed and discussed today's KUB. This appears relatively stable. Renewed Finasteride 5mg daily. See in one year with KUB or sooner for problems. Not available 12/18/2022 14:27:09 11/30/2024 [id number] I reviewed and discussed today's KUB. He [...] er No observ ation record ed. [email or web address] [place] [address] [address] [place], [address], 05/17/2020 12:46:56 11/16/19 21 11/15/2020 XR, kidne y + urete r + bladd er No observ ation record [email or web address] [address] [place], [address], 11/15/2020 16:55:17 12/18/19 22 12/17/2021 XR, kidne y + urete r + bladd er No observ ation record ed. [place] [id number] [facility] [address] [place], [address], 12/18/2021 09:59:20 12/19/19 23 12/18/2022 XR, kidne y + urete r + bladd er No observ ation record ed. [facility] [address], [place], [address], 12/18/2022 16:11:02 12/01/19 25 11/30/2024 XR, kidne y + urete r + bladd er No observ ation record ed. [facility] [address], [place], [address], 12/01/2024 10:14:09 Result Notes None recorded. Problems Name Problem SNOMED Code Status Onset Date Resolution Date Notes Provider Name and Address Organization Details Recorded Time Benign prostatic hyperplas ia 819560636 Active 2012 600.00 : BPH (HYPERTROP HY) WITHOUT URINARY OBSTRUCTIO - Notes:ON PROSCAR Not Available [facility] 0 02:04:09 Kidney stone 79991442 Active 2012 592.0 : CALCULUS-K IDNEY - Notes:Hx ESWL and PCNL hx DUPLICATED SYSTEM-FOL LOWED BY DR THOMPSON-ON HCTZ AND LOW OXALATE Not Available [facility] 0 02:04:09 Disorder of kidney and/or ureter 461221110 Active 2013 593.9 : RENAL MASS/LESIO N/INSUFFIC IENC/URETE R MASS - Notes:mass found on Trauma CT--2cm right renal mass Not Available [facility] 0 02:04:09 Clinical finding Active 2014 C64.1 : 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 Procedures Surgical History Date Name Laterality Status Provider Name and Address Organization Details Recorded Time 1 Colonoscopy completed Gerald Taylor Jr, MD [address] [facility],[address], [place], [address], [place] [facility] 11/15/2020 11:51:44 Imaging Results None recorded. Procedure Notes None recorded. Medical Equipment None Reported. Allergies Allergen ID Allergen Name Allergen Category Reaction Reaction Severity Criticality Documentation Date Start Date Code Code System Note Provider Name and Address Organization Details Recorded Time 339238 morphine medicatio n Not available Not available Not available 11/25/20192012 7052 RxNorm Not Available [facility] 0 00:44:54 365997 UroXatral medicatio n Not available Not available Not available 11/25/20192012 62757 8 RxNorm Not Available [facility] 0 00:44:54 Medications Name Sig Start Date [...] Last Updated DateTime 177.8 cm 27.1 kg/m2 19903.9 6 g 77 /min 97 % 97 % Gerald Taylor Jr, MD [address] [facility], [address], [facility] 1 11:51:06 Date Recorded Body height Body mass index (BMI) Body weight Provider Name and Address Organization Details Last Updated DateTime 11/30/2024 177.8 cm 24.4 kg/m2 04928.7 g Gerald Taylor Jr, MD [address] [facility],[address], [address], [facility] 11/30/2024 10:15:43 Date Recorded Body height Body mass index (BMI) Body weight Respiratory rate Provider Name and Address Organization Details Last Updated DateTime 12/17/2021 177.8 cm 27.1 kg/m2 42642.96 g 18 /min Eduardo Alvarez [facility] 12/17/2021 13:56:07 Date Recorded Body height Body mass index (BMI) Body weight Provider Name and Address Organization Details Last Updated DateTime 12/18/2022 177.8 cm 25.5 kg/m2 52520.44 g Merlyn Velasquez [facility] 12/18/2022 14:19:15 Date Recorded Body height Body mass index (BMI) Body weight Heart rate Oxygen saturation Oxygen saturation in Arterial blood by Pulse oximetry Provider Name and Address Organization Details Last Updated DateTime 0 177.8 cm 27.1 kg/m2 59436.9 6 g 77 /min 98 % 98 % Gerald Taylor Jr, MD [address] [facility] [address], [address], [facility] 0 11:54:13 Social History Question Answer Notes LastModified by Organizat ion Details LastModified Time Tobacco Smoking Status Current Some Day Smoker Eduardo ni, [facility] 12/08/2019 16:20:11 Race White Information no t available 12/18/2022 Ethnicity Not /Lati no Information not available 12/18/2022 Preferred Language Pashto Information not available 12/18/2022 What Was The [...] pneumococcal polysaccharide PPV23 5 completed Not Available [facility] 11/25/2019 00:42:27 Influenza, injectable,quadriva lent, preservative free, pediatric 3 completed Cate Legois null, [facility] 01/01/2024 16:24:21 zoster recombinant 9 completed Cate Legois null, [facility] 01/01/2024 16:24:21 Influenza, high-dose, quadrivalent, PF 1 [facility] 16:24:21 COVID-19, mRNA, LNP-S, PF, 100 mcg/0.5mL dose or 50 mcg/0.25mL dose 1 completed Cate Legois null [facility] 01/01/2024 16:24:21 COVID-19, mRNA, LNP-S, PF, 100 mcg/0.5mL dose or 50 mcg/0.25mL dose 1 completed [facility], [facility] 01/01/2024 16:24:21 COVID-19, mRNA, LNP-S, PF, 30 mcg/0.3 mL dose 1 completed Cate Legois null, [facility] 01/01/2024 16:24:21 pneumococcal polysaccharide PPV23 9 completed [facility] 16:24:21 influenza, unspecified formulation 2 completed Cate Legois null, [facility] 01/01/2024 16:24:21 Pneumococcal conjugate PCV 13 9 completed Cate Legois null, [facility] 01/01/2024 16:24:21 Influenza, high-dose, trivalent, PF 3 completed Cate Legois null, [facility] 01/01/2024 16:24:21 Influenza, high-dose, trivalent, PF 9 completed Cate Legois null, [facility] 01/01/2024 16:24:21 Influenza, high-dose, trivalent, PF 8 completed Cate Legois null, [facility] 01/01/2024 16:24:21 Influenza, split virus, trivalent, preservative 7 completed Cate Legois null, [facility] 01/01/2024 16:24:21 Influenza, split virus, trivalent, preservative 4 completed Cate Legois null, [facility] 01/01/2024 16:24:21 Influenza, split virus, trivalent, PF 0 completed Cate Legois null, [facility] 01/01/2024 16:24:21 Influenza, split virus, trivalent, PF 6 completed Cate Legois null, [facility] 01/01/2024 16:24:21 Influenza, split virus, trivalent, PF 5 completed Cate Legois null, [facility] 01/01/2024 16:24:21 Influenza, split virus, trivalent, PF 1 completed Cate Legois null, [facility] 01/01/2024 16:24:21 Novel [id number], preservative-free 9 completed Cate Legois null, [facility] 01/01/2024 16:24:21 Influenza, split virus, quadrivalent, PF 0 completed Cate Legois null, [facility] 01/01/2024 16:24:21 Influenza, split virus, quadrivalent, PF 9 completed Cate Legois null, [facility] 01/01/2024 16:24:21 zoster recombinant 3 completed Cate Legois null, [facility] 01/01/2024 16:24:40 Influenza, high-dose, quadrivalent, PF 2 completed Cate Legois null, [facility] 01/01/2024 16:24:40 COVID-19, mRNA, LNP-S, bivalent, PF, 50 mcg/0.5 mL or 25mcg/0.25 mL dose 2 completed Cate Legois null, [facility] 01/01/2024 16:24:40 Influenza, adjuvanted, quadrivalent, PF 3 completed Not Available [facility] 11/30/2024 10:11:19 zoster recombinant 3 completed Not Available [facility] 11/30/2024 10:11:19 Influenza, adjuvanted, trivalent, PF 4 completed Not Available [facility] 11/30/2024 10:11:19 COVID-19, mRNA, LNP-S, PF, carlo-sucrose, 30 mcg/0.3 mL 4 completed Not Available [facility] 11/30/2024 10:11:19 Past Encounters Encounter ID Performer Location Encounter Start Date Encounter Closed Date Diagnosis/Indication Diagnosis SNOMED-CT Code Diagnosis ICD10 Code Diagnosis Note [id number] MD Daisy Isbell Jr [facility] [address] [place] [address] 12/08/2019 16:09:06 12/14/2019 10:05:37 Kidney stone 26304135 N20.0 [id number] MD Daisy Isbell Jr [facility] [address] [place] [address] 02/11/2020 14:31:10 02/15/2020 09:35:31 Kidney stone 56675683 N20.0 [id number] Gerald Taylor Jr, MD [facility] [address] [place] [address] 05/17/2020 11:51:22 05/18/2020 13:37:15 Kidney stone 89620276 N20.0 [id number] Gerald Taylor Jr, MD [facility] [address] [place] [address] 11/15/2020 11:47:43 11/17/2020 12:24:10 Kidney stone 08937731 N20.0 [id number] Gerald Taylor Jr, MD [facility] [address] [place] [address] 12/17/2021 13:50:45 12/19/2021 10:09:37 Kidney stone 16661576 N20.0 Benign pro static hyperplasia 585196803 N40.1 [id number] Gerald Taylor Jr, MD [facility] [address] [place] [address] 12/18/2022 14:14:34 12/24/2022 11:27:07 Kidney stone 34923932 N20.0 Benign pro static hyperplasia 598581998 N40.1 [id number] Gerald Taylor Jr, MD [facility] [address] [address],[address] [place] [address] 11/30/2024 10:07:30 12/15/2024 10:13:55 Kidney stone 54936475 N20.0 Benign pro static hyperplasia 444376657 N40.1 Health Concerns Section Related Observation LastModified by Organization Detai ls LastModified Time None Recorded Concern Status LastModified by Organization Details LastModified Time None Recorded Advance Directives Directive None Recorded Payers Insurance Date Sequence Insurance Name Policy Number Policy Vanegas Covered Member ID Vnaegas Member ID Guarantor Name 12/08/2019 1 *SELF PAY* Da david Ackerman Egg[employer] 11/30/2024 1 [place] [employer] Jose Daniel Ackerman Eggum [id number] Jose Daniel Ackerman Eggum 12/15/2024 2 [place] [id number] Jose Daniel Hopekendra [id number] Jose Daniel Burgos 01/01/2020 2 UNSPECIFIED REMIT PAYOR Jose Daniel Burgos Notes Date Note Type Note Provider Name and Address Organization Details Recorded Time 05/17/2020 text/html Stone recheck. Doing well. KUB shows a persistent stone in the lower pole. Gerald Taylor Jr, MD [address] [place] [address],[address], [address] [place] [address], [facility] 05/17/2020 12:03:57 11/15/2020 text/html Stone recheck. No stone pain or events. KUB shows stable stones. Gerald Taylor Jr, MD [address] [place] [address], [address] [place] [address], [facility] 11/15/2020 12:11:24 12/17/2021 text/html Stone recheck.Doing well.No stone pain or events.KUB looks stable.BPH stable. Gerald Taylor Jr, MD [address] [place] [address], [address], [facility] 12/17/2021 14:05:48 12/18/2022 text/html BPH and stone recheck.Doing well.No stone pain or events.KUB today shows relatively stable bilateral stones.Taking Finasteride with reasonable results. Gerald Taylor Jr, MD [address] [place] [address],[address], [address], [facility] 12/18/2022 14:27:19 11/30/2024 text/html Annual stone recheck.No stone pain or events.KUB today shows bilateral stones L>R. Gerald Taylor Jr, MD [address] [place] [address],[address] [address], [place], [address], [facility] 11/30/2024 10:48:26
== END 2024-12-31 21:44 | disposition home or self-care (01) ==
LOC: NPINS 21:43
PROVIDERS: PCP Internal Medicine; Visit Provider Nurse Practitioner Gerontology
DX: R53.1 Weakness (principal); R41.0 Disorientation, unspecified
CPT/HCPCS: 81001; 81003; 87086

== ENCOUNTER 2025-02-24 10:20 | Outpatient (CLI) | payer MEDICARE, BC, SELFPAY | END 2025-02-24 10:21 | disposition home or self-care (01) | LOC: NFLDREF 03-02 10:46 | PROVIDERS: PCP Internal Medicine; Referring Provider Internal Medicine; Visit Provider Internal Medicine | DX: G47.33 Obstructive sleep apnea (adult) (pediatric) (principal); G20.A1 Parkinson's disease without dyskinesia, without mention of fluctuations | CPT/HCPCS: 36600; 82803 ==

== ENCOUNTER 2025-03-21 07:26 | Outpatient (CLI) | payer MEDICARE, BC, SELFPAY | END 2025-03-21 07:27 | disposition home or self-care (01) | LOC: AMB 03-23 08:12 | PROVIDERS: PCP Internal Medicine; Visit Provider Family Medicine | DX: R53.1 Weakness (principal) | CPT/HCPCS: A0998 ==

== ENCOUNTER 2025-05-16 14:58 | Outpatient (CLI) | payer MEDICARE, BC, SELFPAY | END 2025-05-16 14:59 | disposition home or self-care (01) | LOC: RAD 14:59 | PROVIDERS: PCP Internal Medicine; Visit Provider Nurse Practitioner | DX: I48.21 Permanent atrial fibrillation (principal); I34.0 Nonrheumatic mitral (valve) insufficiency; I07.1 Rheumatic tricuspid insufficiency; I35.1 Nonrheumatic aortic (valve) insufficiency | CPT/HCPCS: 93306 ==

== ENCOUNTER 2025-06-03 14:21 | Outpatient (CLI) | payer MEDICARE, BC, SELFPAY ==
--- NOTE | 2025-06-03 14:30 | CRLHL7_ITS ---
For Patients: As a result of the Century Cures Act, medical imaging exams and procedure reports are released immediately into your electronic medical record. You may view this report before your referring provider. If you have questions, please contact your health care provider. Indication: Dorsalgia Technique: Multiplanar, multisequence, MRI of the lumbar spine, obtained without contrast. Comparison: Lumbar spine x-ray 05/11/2025 Findings: Reverse S-shaped thoracolumbar scoliosis with accentuated lumbar lordosis. Multilevel chronic compression deformities, moderately severe at T11, mild T12, mild at T12 and L1, moderate at L4. Grade 1 retrolisthesis at T11-12, T12-L1, L1-2, L2-3 and L4-5, borderline grade 2 anterolisthesis L5 on S1. Chronic bilateral L5 spondylolysis. [place] bony edema throughout the left sacral ala compatible with acute insufficiency fracture. Minor bony edema at the right sacral ala also compatible with insufficiency fracture, significantly smaller and potentially subacute. Conus medullaris terminates at L1. Unremarkable SI joints. T11-T12: Mild disc bulge, facet arthropathy. No neural foraminal or spinal canal stenosis. T12-L1: Right lateral disc-osteophyte complex, facet arthropathy. No neural foraminal or spinal canal stenosis. L1-L2: Right eccentric disc-osteophyte complex, facet arthropathy. Mild bilateral neural foraminal narrowing. Mild spinal canal narrowing. L2-L3: Disc-osteophyte complex, facet arthropathy. No left, mild right neural foraminal narrowing. No spinal canal stenosis. L3-L4: Right eccentric disc-osteophyte complex, facet arthropathy. Mild bilateral neural foraminal narrowing. Moderate spinal canal stenosis. L4-L5: Disc bulge, facet arthropathy. No left, mild right neural foraminal narrowing. No spinal canal stenosis. L5-S1: Disc unroofing, right eccentric disc-osteophyte complex, facet arthropathy. Severe bilateral neural foraminal stenosis. Moderate spinal canal stenosis with lateral recess stenosis. Impression: 1. Large acute left sacral ala insufficiency fracture. Small acute/subacute right sacral ala insufficiency fracture. 2. Thoracolumbar scoliosis, multilevel spondylosis and spondylolisthesis as detailed. 3. At L5-S1, chronic bilateral L5 spondylolysis, borderline grade 2 anterolisthesis, severe bilateral neural foraminal stenosis, moderate spinal canal stenosis with lateral recess stenosis. Likely impingement of the exiting bilateral L5 and descending bilateral S1 nerve roots. 4. Moderate spinal canal stenosis at L3-4. Mild neural foraminal and mild spinal canal narrowing elsewhere. Dictated by Miranda Miranda MD @ 06/06/2025 8:08:48 AM (Electronically Signed)
== END 2025-06-03 14:22 | disposition home or self-care (01) ==
LOC: MRI 14:23
PROVIDERS: PCP Internal Medicine; Visit Provider Nurse Anesthetist, Certified Registered
DX: M54.9 Dorsalgia, unspecified (principal); M48.58XA Collapsed vertebra, not elsewhere classified, sacral and sacrococcygeal region, initial encounter for fracture; M41.85 Other forms of scoliosis, thoracolumbar region; M47.897 Other spondylosis, lumbosacral region; M48.061 Spinal stenosis, lumbar region without neurogenic claudication
CPT/HCPCS: 72148